=== PATIENT | male | born 1945 | race Caucasian/White ===

== ENCOUNTER → 2020-05-07 10:41 | Outpatient (CLI) | payer MEDICARE, BC, SELFPAY ==
--- NOTE | 2020-05-07 | DI.RAD.S_ITS ---
PROCEDURE: XR SHOULDER LT MIN 2V INDICATIONS: Acute Lt Shoulder Pain/Cough/Weightloss/Tabacco Dependence TECHNIQUE: 3 views of the shoulder were acquired. COMPARISON: None. FINDINGS: Bones: No fractures or dislocations. No suspicious bony lesions. Visualized ribs appear intact. Severe AC joint degeneration. Glenohumeral spurring and sclerosis also noted. Soft tissues: No suspicious soft tissue calcifications. IMPRESSION: Degenerative joint disease as above If the patient's pain or other symptoms persist, consider further evaluation with MRI Dictated by: Yannick Putnam M.D. on 05/07/2020 at 15:47 Approved by: Yannick Putnam M.D. on 05/07/2020 at 15:48
--- NOTE | 2020-05-07 | DI.RAD.S_ITS ---
PROCEDURE: XR CHEST 2V INDICATIONS: Acute Lt Shoulder Pain/Cough/Weightloss/Tabacco Dependence TECHNIQUE: 2 views of the chest were acquired. COMPARISON: [facility], CR, XR SHOULDER LT MIN 2V, 05/07/2020, 10:43. FINDINGS: Surgical changes and devices: None. Lungs and pleura: Lungs are clear. No pleural effusions or pneumothorax. Mediastinum: Mediastinal contours are normal. Heart size is normal. Bones and chest wall: No suspicious bony abnormalities. Soft tissues appear unremarkable. IMPRESSION: No acute disease Dictated by: Yannick Putnam M.D. on 05/07/2020 at 12:35 Approved by: Yannick Putnam M.D. on 05/07/2020 at 12:37
[2020-05-07 11:19] LABS: Bacteria Urine None Seen; RBC Urine None Seen (0-5/HPF); WBC Urine None Seen (0-5/HPF)
[2020-05-07 11:49] LABS: Add Manual Diff / Slide Review NO; Basophils Absolute Auto 0 /uL (0-100); Basophils Percent Auto 0.4 % (0-2); Eosinophils Absolute Auto 100 /uL (0-450); Hematocrit 43.4 % (41-53); Hemoglobin 15.4 g/dL (13.5-17.5); Lymphocytes Absolute Auto 1300 /uL (1100-4500); Lymphocytes Percent Auto 25.2 % (25-40); Mean Corpuscular HGB Conc 35.6 % (30-36); Mean Corpuscular Hemoglobin 31.3 PG (26-34); Monocytes Absolute Auto 300 /uL (0-900); Monocytes Percent Auto 6.9 % (3-14); Neutrophils Absolute Auto 3300 /uL (1500-7000); Neutrophils Percent Auto 65.5 % (50-75); Platelet Count 224 X10^3/uL (150-400); Red Blood Cell Count 4.93 X10^6/uL (4.5-5.9); Red Cell Distribution Width 13.3 % (11.6-14.8)
[2020-05-07 12:08] LABS: Erythrocyte Sedimentation Rate 4 MM/HR (0-15); HEMOLYSIS < 15 (0-50); Iron 120 ug/dL (49-181)
[2020-05-07 12:10] LABS: Alanine Aminotransferase 21 IU/L (<50); Albumin 4.7 g/dL (3.5-5.0); Albumin Globulin Ratio 1.6 (1.0-2.8); Alkaline Phosphatase 81 U/L (38-126); Aspartate Aminotransferase 28 IU/L (17-59); BUN Creatinine Ratio 22.7 (6-22); Bilirubin Total 0.6 mg/dL (0.2-1.3); Blood Urea Nitrogen 17 mg/dL (9-20); Calcium 9.6 mg/dL (8.4-10.2); Carbon Dioxide 30 mmol/L (22-32); Chloride 102 mmol/L (98-107); Estimated Glomerular Filt Rate > 60.0 mL/min (>60); Globulin 2.9 g/dL (1.7-4.1); Glucose 100 mg/dL (80-110); HEMOLYSIS < 15 (0-50); Potassium 4.8 mmol/L (3.4-5.1); Sodium 140 mmol/L (137-145); Total Protein 7.6 g/dL (6.3-8.2)
[2020-05-07 12:13] LABS: Hemoglobin A1C% w Est Avg Glu 5.2 % (4.0-6.0)
[2020-05-07 12:19] LABS: High Sensitivity CRP - Cardiac 0.9 mg/L (1.0-3.0); Percent Iron Saturation 43 % (20-50); Total Iron Binding Capacity 277 ug/dL (261-462); Transferrin 209 mg/dL (206-381)
[2020-05-07 12:40] LABS: Thyroid Stimulating Hormone 0.774 uIU/mL (0.47-4.68)
[2020-05-07 12:43] LABS: Ferritin 146 ng/mL (18-464)
[2020-05-07 13:14] LABS: Folate 6.5 ng/mL (2.76-20.0); Vitamin B12 285 pg/mL (239-931)
[2020-05-07 13:41] LABS: Appearance Urine UA CLEAR; Bilirubin Urine UA NEGATIVE (NEGATIVE); Color Urine UA YELLOW; Glucose Urine UA NEGATIVE (Negative); Ketones Urine UA NEGATIVE (NEGATIVE); Leukocyte Esterase Urine UA NEGATIVE (NEGATIVE); Nitrite Urine UA NEGATIVE (Negative); Occult Blood Urine UA NEGATIVE (Negative); Protein Urine UA NEGATIVE (Negative); Urobilinogen Urine UA 0.2 E.U./dL (0.2); pH Urine UA 5.5 (4.5-8.0)
[2020-05-07 13:47] LABS: Culture Indicated Urine Cult Not Indicated; Urine Comments Microscopic Normal
[2020-05-08 08:43] LABS: PSA Free % 32.5 % (.); PSA, Total 0.4 ng/mL (0.0-4.0)
[2020-05-09 11:13] LABS: H. Pylori Antigen Stool Negative (Negative)
== END ==
PROVIDERS: PCP Family Medicine; Referring Provider Family Medicine; Visit Provider Family Medicine
DX: M25.512 Pain in left shoulder (principal); M19.012 Primary osteoarthritis, left shoulder; R05 Cough; R63.4 Abnormal weight loss; F17.201 Nicotine dependence, unspecified, in remission; R10.13 Epigastric pain; R63.0 Anorexia; K29.00 Acute gastritis without bleeding; A04.8 Other specified bacterial intestinal infections
CPT/HCPCS: 36415; 71046; 73030; 80053; 81001; 82607; 82728; 82746; 83036; 83540; 83550; 84153; 84154; 84443; 85025; 85651; 86140; 87338

== ENCOUNTER 2021-04-24 13:56 | Emergency (ER) | payer MEDICARE, BC, SELFPAY ==
[2021-04-24 14:06] VITALS: BP 189/90; PULSE 89; RESP 14; TEMP 36.6; O2SAT 99
--- NOTE | 2021-04-24 14:08 | DI.RAD.S_ITS ---
PROCEDURE: XR SHOULDER LT MIN 2V INDICATIONS: fall one week ago, pain, hears 'bone crunching' TECHNIQUE: 3 views of the shoulder were acquired. COMPARISON: [facility], CR, XR SHOULDER LT MIN 2V, 05/07/2020, 10:43. FINDINGS: Bones: No fractures or dislocations. There is moderate acromioclavicular joint degeneration. No suspicious bony lesions. Visualized ribs appear intact. Soft tissues: No suspicious soft tissue calcifications. IMPRESSION: 1. No fracture or dislocation. 2. Moderate acromioclavicular joint degeneration. Dictated by: Malachi Lama M.D. on 04/24/2021 at 14:32 Approved by: Malachi Lama M.D. on 04/24/2021 at 14:33
--- NOTE | 2021-04-24 14:29 | ED.UPPEXIN ---
HPI - Extremity Injury (Upper) General Chief Complaint: Extremity Injury, Upper Stated Complaint: Fall Last Week, Left Shoulder Pain Time Seen by Provider: 04/24/21 14:03 Source: patient Mode of arrival: Ambulatory Limitations: no limitations History of Present Illness HPI narrative: This is a 76-year-old male who comes in with complaint of fall last week patient has continued to have some left shoulder discomfort since that time and noticed that he has a crunchy sensation in his left shoulder. patient states that he fell backwards from a seated chair position into a flower bed which was relatively soft. He denies striking his head. He denies any neck or back pain. He denies any numbness, tingling or weakness. Patient does note he has with motion of his shoulder and particularly flexion and abduction. Patient states he has been using a topical hemp cream or ointment which has been helpful. He has also been taking Aleve which is his only regular medication. He denies any other prior surgeries except for appendectomy. he denies any allergies to medications. He is a former smoker, occasional alcohol, no illicit. Patient lives on [facility] with his . He has seen Dr. Juarez in the past for orthopedic. Related Data Previous Rx's Medication Instructions Recorded sildenafil [Viagra] 100 mg PO PRN PRN #6 tab 12/15/16 prednisone 20 mg PO DAILY #5 tab 04/24/21 Allergies Allergy/AdvReac Type Severity Reaction Status Date / Time No Known Drug Allergies Allergy Verified 04/24/21 14:08 Review of Systems Review of Systems ROS Unobtainable: All systems reviewed & are unremarkable except as noted in HPI and below Patient History Surgical History History of tonsillectomy Status post appendectomy Social History Smoking Status: Former smoker Smoking Status: Former smoker alcohol intake frequency: other Substance Use Type: does not use Exam Narrative Exam Narrative: GENERAL: Alert and oriented x three, well-nourished male in mild distress. HEENT: Head normocephalic, atraumatic, EOMI, pupils reactive, face symmetric, moist mucous membranes NECK: Supple, full range of motion, no cervical vertebral tenderness. CARDIOVASCULAR: Regular rate and rhythm without murmurs, rubs or gallops. RESPIRATORY: Breath sounds equal bilaterally, no wheezes rales or rhonchi. ABDOMEN: Soft, nontender. Normoactive bowel sounds all 4 quadrants. No guarding or rebound, rigidity, no mass : No CVA tenderness EXTREMITIES: Patient has no warmth, erythema or skin changes the left shoulder he does have tenderness over the left biceps tendon with flexion, patient also has some crepitus in the left shoulder with range of motion. Patient does not have any other bony tenderness on examination of the clavicle, scapula, shoulder, or left extremity, he has 5/5 muscle strength with equal well control instructor bilaterally, +radial pulse bilaterally. No clubbing or edema. Neurovascularly intact. Patient does have some decreased range of motion with full flexion or extension, patient is quite uncomfortable with these movements. He is more comfortable with adduction. He has no issues with adduction. + Yergason's on left. NEUROLOGICAL: Cranial nerves II through XII grossly intact. Moving all extremities SKIN: Warm, dry, no petechiae, no rashes or lesions. Initial Vital Signs Initial Vital Signs: Vital Signs Temperature 97.9 F 04/24/21 14:06 Pulse Rate 89 04/24/21 14:06 Respiratory Rate 14 04/24/21 14:06 Blood Pressure 189/90 H 04/24/21 14:06 Pulse Oximetry 99 04/24/21 14:06 Course Orders Ordered: ED Orders 04/24/21 14:08 XR shoulder LT min 2V Stat Vital Signs Vital signs: Vital Signs - 8 hr 04/24/21 14:06 04/24/21 15:08 Temperature 97.9 F Pulse Rate 89 80 Respiratory Rate 14 16 Blood Pressure 189/90 H 118/34 L Pulse Oximetry 99 96 MDM - Extremity Injury (Upper) Imaging Data Extremity x-ray #1: Radiologist's Impression: [address] [id number] ReportSigned Patient: Erik Gee [facility]#: [id number]: 5Acct:[id number]/Sex: 76 / MDate of Service: 04/24/21Loc: EDAccession Number: [id number] Procedure: XR shoulder LT min 2V Ordering Provider: Cordelia Dominguez MD PROCEDURE: XR SHOULDER LT MIN 2V INDICATIONS: fall one week ago, pain, hears 'bone crunching' TECHNIQUE: 3 views of the shoulder were acquired. COMPARISON: [facility], CR, XR SHOULDER LT MIN 2V, 05/07/2020, 10:43. FINDINGS: Bones: No fractures or dislocations. There is moderate acromioclavicular joint degeneration. No suspicious bony lesions. Visualized ribs appear intact. Soft tissues: No suspicious soft tissue calcifications. IMPRESSION: 1. No fracture or dislocation. 2. Moderate acromioclavicular joint degeneration. Dictated by: Maalchi Lama M.D. on 04/24/2021 at 14:32 Approved by: Malachi Lama M.D. on 04/24/2021 at 14:33 MDM Narrative Medical decision making narrative: 76-year-old male who comes with left-sided shoulder pain after a fall backwards in a chair. Patient denies striking his head, he is not anticoagulated does not have any other symptoms. Patient has noted some crepitus and increased pain with movement. On exam patient does not appear to be weakened and decreased movement on exam seems to be more secondary to pain. He does have some tenderness to his biceps tendon but this is less likely to be present from fall. He does not have any fracture. He does have some degenerative changes from his AC joint. Discussed with patient he has been using topical hemp with good results as well as Aleve, ice and heat and was encouraged to continue these. Given a short course of oral prednisone to see if this helps with his discomfort and referral to Orthopedic surgery if he is not continuing to have improvement. Discharge Plan Departure Patient Disposition: Home Clinical Impression: Biceps tendinitis of left shoulder, Degenerative joint disease of acromioclavicular joint Instructions: DI for Tendinitis Activity Restrictions/Additional Instructions: Follow up with orthopedic surgery if you are not having any improvement in your symptoms. Call this week to establish an appointment. You may continue Alleve for pain as well as the topical ointment/cream you have been using. You may alternate ice and heat. You may try a short course of prednisone to see if this improves your symptoms. Make sure to eat prior to taking this medication. Please return for fever, rapidly worsening pain, redness, swelling, new numbness, tingling or weakness of your extremity, inability to preschool principal, or other new or concerning symptoms Prescriptions: New prednisone 20 mg tablet 20 mg PO DAILY Qty: 5 RF: 0 No Action sildenafil [Viagra] 100 MG tablet 100 mg PO PRN PRNQty: 6 RF: 9 Referrals: Gareth Hogan MD [Primary Care Provider] - Chapin You MD [Physician] - Yarelis Sarabia MD [Physician] -
[2021-04-24 15:08] VITALS: BP 118/34; PULSE 80; RESP 16; O2SAT 96
== END 2021-04-24 15:10 | disposition home or self-care (01) ==
PROVIDERS: Emergency Provider Emergency Medicine; PCP Family Medicine
DX: M75.22 Bicipital tendinitis, left shoulder (principal); M19.019 Primary osteoarthritis, unspecified shoulder; W19.XXXA Unspecified fall, initial encounter
CPT/HCPCS: 73030; 99283

== ENCOUNTER → 2021-10-12 08:16 | Outpatient (CLI) | payer MEDICARE, BC, SELFPAY ==
[2021-10-14 00:26] LABS: COVID19 - ORCAS (NP or Nasal) Negative (Negative)
== END ==
PROVIDERS: PCP Family Medicine; Visit Provider Family Medicine
DX: Z20.822 Contact with and (suspected) exposure to COVID-19 (principal)
CPT/HCPCS: C9803; U0003

== ENCOUNTER 2021-10-31 03:46 | Observation (INO) | payer MEDICARE, BC, SELFPAY ==
[2021-10-31] VITALS (27 sets, daily range): BP systolic 119–158; BP diastolic 61–103; PULSE 59–84; RESP 13–27; TEMP 36.3–36.9; O2SAT 94–100; BMI 23.1; BMI 22.9
--- NOTE | 2021-10-31 03:59 | ED_ITS ---
HPI - Dizziness <Sagrario Leyva DO - Last Filed: 11/02/21 07:07> General Chief Complaint: Dizziness Stated Complaint: Vertigo Time Seen by Provider: 10/31/21 03:58 History of Present Illness HPI Narrative: Patient is a 76-year-old male who presents 10 days after a uro lift with dizziness. He states he had a UroLift at [facility] about 10 days ago he said it was an outpatient procedure. Since then he is had intermittent dizziness. This evening he woke up with severe dizziness and bilateral weak legs. He was given Zofran and IV fluids by EMS and transported to the ED for further evaluation. He is overall feeling significantly better. He denies fever or headache. No painful or frequent urination. However he is still urinating some blood. He has no abdominal pain or flank pain. He denies any chest pain or shortness of breath. He has not passed out. Dizziness was quite intense tonight in he was extremely weak prompting further evaluation. Related Data Previous Rx's Medication Instructions Recorded aspirin 81 mg tablet,delayed 81 mg PO DAILY #30 tab 11/01/21 release atorvastatin 40 mg tablet 40 mg PO BEDTIME #30 tab 11/01/21 Allergies Allergy/AdvReac Type Severity Reaction Status Date / Time No Known Drug Allergies Allergy Verified 04/24/21 14:08 Review of Systems <Sagrario Leyva DO - Last Filed: 11/02/21 07:07> Review of Systems Narrative: GENERAL: Denies chills, fatigue, malaise, fever, sweats, travel HEENT: Denies sinus pain, ear pain, sore throat, difficulty swallowing, neck pain RESPIRATORY: Denies dyspnea, cough, wheezing, hemoptysis, sputum. CARDIOVASCULAR: Denies chest pain, palpitations, orthopnea, edema GASTROINTESTINAL: Denies nausea, vomiting, abdominal pain, diarrhea, con stipation, melena. : See HPI MUSCULOSKELETAL: Denies weakness, joint pain, or bony pain SKIN: No rash, no erythema, no pruritus NEUROLOGIC: See HPI PSYCHIATRIC: No concerning psychosocial issues. 12 point review of systems is negative except for those stated above and HPI Patient History <Sagrario Leyva DO - Last Filed: 11/02/21 07:07> Surgical History History of tonsillectomy Status post appendectomy Social History household members: none Smoking Status: Former smoker Smoking Status: Former smoker alcohol intake frequency: other Substance Use Type: does not use Exam <Sagrario Leyva DO - Last Filed: 11/02/21 07:07> Initial Vital Signs Initial Vital Signs: Vital Signs Temperature 97.3 F L 10/31/21 03:50 Pulse Rate 75 10/31/21 03:50 Respiratory Rate 17 10/31/21 03:50 Blood Pressure 158/82 H 10/31/21 03:50 Pulse Oximetry 97 10/31/21 03:50 GENERAL: Alert pleasant 76-year-old maleand in no acute distress. HEENT: Head atraumatic,EOMI, no nystagmus, pupils reactive, face symmetric, moist mucous membranes CARDIOVASCULAR: Regular rate and rhythm without murmurs, rubs or gallops. RESPIRATORY: Breath sounds equal bilaterally, no wheezes rales or rhonchi. ABDOMEN: Soft, nontender. Normoactive bowel sounds all 4 quadrants. No guar ding or rebound. EXTREMITIES: Normal range of motion, no clubbing or edema. Neurovascularly intact NEUROLOGICAL: Alert and oriented x4.Normal gait and speech. Cranial nerves II through XII grossly intact. Good [id number], good [id number], strength equal bilaterally, no dysarthria or aphasia, sensation in tact to soft touch bilaterally, no visual changes, no facial droop SKIN: Warm, dry, no laceration, no petechiae, no rashes or lesions. <Alexander To DO - Last Filed: 10/31/21 11:10> Initial Vital Signs Initial Vital Signs: Vital Signs Temperature 97.3 F L 10/31/21 03:50 Pulse Rate 75 10/31/21 03:50 Respiratory Rate 17 10/31/21 03:50 Blood Pressure 158/82 H 10/31/21 03:50 Pulse Oximetry 97 10/31/21 03:50 Course <Sagrario Leyva DO - Last Filed: 11/02/21 07:07> Orders Ordered: Discontinued Medications Acetaminophen (Acetaminophen 325 Mg Tablet) 650 mg PO Q6HR PRN PRN Reason: Fever/Mild Pain (1-3) Aspirin (Aspirin Ec 81 Mg Tablet) 81 mg PO DAILY [facility] Last Admin: 11/01/21 08:28 Dose: 81 mg Documented by: CELE Aspirin (Aspirin 325 Mg Tablet) 325 mg PO NOW ONE Stop: 10/31/21 12:18 Last Admin: 10/31/21 13:55 Dose: 325 mg Documented by: CELE Atorvastatin Calcium (Atorvastatin 20 Mg Tablet) 40 mg PO BEDTIME [facility] Last Admin: 10/31/21 20:08 Dose: 40 mg Documented by: DENILSON Bisacodyl (Bisacodyl 10 Mg Supp) 10 mg IA DAILY PRN PRN Reason: Constipation Enoxaparin Sodium (Enoxaparin 40 Mg/0.4 Ml Syringe) 40 mg SUBCUT DAILY [facility] Last Admin: 11/01/21 08:28 Dose: 40 mg Documented by: CELE Sodium Chloride (Normal Saline 0.9%) 1,000 mls @ 1,000 mls/hr IV BOLUS ONE Stop: 10/31/21 05:56 Last Infusion: 10/31/21 07:15 Dose: 0 mls/hr Documented by: Admin: 10/31/21 05:00 Dose: 1,000 mls/hr Documented by: RELL Magnesium Hydroxide (Magnesium Hydroxide 30 Ml Udc) 30 ml PO DAILY PRN PRN Reason: Constipation Meclizine HCl (Meclizine Hcl 12.5 Mg Tablet) 25 mg PO NOW ONE Stop: 10/31/21 08:11 Last Admin: 10/31/21 08:16 Dose: 25 mg Documented by: EMILE Ondansetron HCl (Ondansetron 4 Mg/2 Ml Inj) 4 mg IV NOW ONE Stop: 10/31/21 08:11 Last Admin: 10/31/21 08:16 Dose: 4 mg Documented by: EMILE Ondansetron HCl (Ondansetron 4 Mg/2 Ml Inj) 4 mg IV Q8HR PRN PRN Reason: Nausea And Vomiting Sodium Chloride (Sodium Chloride 0.9% Flush) 10 ml IV PRN PRN PRN Reason: Flush Sodium Chloride (Sodium Chloride 0.9% Flush) 10 ml IV BID [facility] Last Admin: 11/01/21 14:32 Dose: Not Given Documented by: Admin: 10/31/21 20:57 Dose: 10 ml Documented by: DENILSON Vital Signs Vital signs: Vital Signs - 8 hr 10/31/21 03:50 10/31/21 04:03 10/31/21 04:12 Temperature 97.3 F L Pulse Rate 75 59 L 75 Pulse Rate [Orthostatic Lying] Pulse Rate [Orthostatic Sitting] Pulse Rate [Orthostatic Standing] Respiratory Rate 17 21 19 Blood Pressure 158/82 H 150/75 H Blood Pressure [Orthostatic Lying] Blood Pressure [Orthostatic Sitting] Blood Pressure [Orthostatic Standing] Pulse Oximetry 97 96 99 10/31/21 04:30 10/31/21 05:00 10/31/21 05:22 Temperature Pulse Rate 75 72 73 Pulse Rate [Orthostatic Lying] Pulse Rate [Orthostatic Sitting] Pulse Rate [Orthostatic Standing] Respiratory Rate 15 21 15 Blood Pressure 156/73 H 133/68 Blood Pressure [Orthostatic Lying] Blood Pressure [Orthostatic Sitting] Blood Pressure [Orthostatic Standing] Pulse Oximetry 97 99 98 10/31/21 05:30 10/31/21 06:00 10/31/21 06:30 Temperature Pulse Rate 79 79 78 Pulse Rate [Orthostatic Lying] Pulse Rate [Orthostatic Sitting] Pulse Rate [Orthostatic Standing] Respiratory Rate 14 16 19 Blood Pressure 142/66 H 149/65 H 138/66 Blood Pressure [Orthostatic Lying] Blood Pressure [Orthostatic Sitting] Blood Pressure [Orthostatic Standing] Pulse Oximetry 98 98 98 10/31/21 07:00 10/31/21 07:30 10/31/21 08:00 Temperature Pulse Rate 81 72 81 Pulse Rate [Orthostatic Lying] Pulse Rate [Orthostatic Sitting] Pulse Rate [Orthostatic Standing] Respiratory Rate 13 15 27 H Blood Pressure 142/67 H 130/62 137/77 Blood Pressure [Orthostatic Lying] Blood Pressure [Orthostatic Sitting] Blood Pressure [Orthostatic Standing] Pulse Oximetry 97 99 100 10/31/21 08:03 10/31/21 08:05 10/31/21 08:09 Temperature Pulse Rate 79 84 Pulse Rate [Orthostatic Lying] 79 Pulse Rate [Orthostatic Sitting] 82 Pulse Rate [Orthostatic Standing] 80 Respiratory Rate 24 17 Blood Pressure 119/71 148/72 H Blood Pressure [Orthostatic Lying] 137/77 Blood Pressure [Orthostatic Sitting] 119/71 Blood Pressure [Orthostatic Standing] 148/72 H Pulse Oximetry 99 98 10/31/21 08:30 Temperature Pulse Rate 67 Pulse Rate [Orthostatic Lying] Pulse Rate [Orthostatic Sitting] Pulse Rate [Orthostatic Standing] Respiratory Rate Blood Pressure 126/61 Blood Pressure [Orthostatic Lying] Blood Pressure [Orthostatic Sitting] Blood Pressure [Orthostatic Standing] Pulse Oximetry 99 <Alexander To DO - Last Filed: 10/31/21 11:10> Course Course Narrative: 0700 - patient received in signout from Dr. Leyva. I have performed an independent history and physical exam. His story is a bit complex and though elements would suggest the possibility of a peripheral vertigo there is no reproducible dizziness on my exam, no nystagmus. He is unable to ambulate because he feels unsteady. Additionally, he reports brief episodes of trouble with word finding and some heaviness of his left leg last night, which has since resolved. He will require hospitalization for further workup including MRI and echocardiogram among others. Orders Ordered: Discontinued Medications Acetaminophen (Acetaminophen 325 Mg Tablet) 650 mg PO Q6HR PRN PRN Reason: Fever/Mild Pain (1-3) Aspirin (Aspirin Ec 81 Mg Tablet) 81 mg PO DAILY [facility] Last Admin: 11/01/21 08:28 Dose: 81 mg Documented by: CELE Aspirin (Aspirin 325 Mg Tablet) 325 mg PO NOW ONE Stop: 10/31/21 12:18 Last Admin: 10/31/21 13:55 Dose: 325 mg Documented by: CELE Atorvastatin Calcium (Atorvastatin 20 Mg Tablet) 40 mg PO BEDTIME [facility] Last Admin: 10/31/21 20:08 Dose: 40 mg Documented by: DENILSON Bisacodyl (Bisacodyl 10 Mg Supp) 10 mg IA DAILY PRN PRN Reason: Constipation Enoxaparin Sodium (Enoxaparin 40 Mg/0.4 Ml Syringe) 40 mg SUBCUT DAILY [facility] Last Admin: 11/01/21 08:28 Dose: 40 mg Documented by: CELE Sodium Chloride (Normal Saline 0.9%) 1,000 mls @ 1,000 mls/hr IV BOLUS ONE Stop: 10/31/21 05:56 Last Infusion: 10/31/21 07:15 Dose: 0 mls/hr Documented by: Admin: 10/31/21 05:00 Dose: 1,000 mls/hr Documented by: KBROWNE Magnesium Hydroxide (Magnesium Hydroxide 30 Ml Udc) 30 ml PO DAILY PRN PRN Reason: Constipation Meclizine HCl (Meclizine Hcl 12.5 Mg Tablet) 25 mg PO NOW ONE Stop: 10/31/21 08:11 Last Admin: 10/31/21 08:16 Dose: 25 mg Documented by: EMILE Ondansetron HCl (Ondansetron 4 Mg/2 Ml Inj) 4 mg IV NOW ONE Stop: 10/31/21 08:11 Last Admin: 10/31/21 08:16 Dose: 4 mg Documented by: EMILE Ondansetron HCl (Ondansetron 4 Mg/2 Ml Inj) 4 mg IV Q8HR PRN PRN Reason: Nausea And Vomiting Sodium Chloride (Sodium Chloride 0.9% Flush) 10 ml IV PRN PRN PRN Reason: Flush Sodium Chloride (Sodium Chloride 0.9% Flush) 10 ml IV BID [facility] Last Admin: 11/01/21 14:32 Dose: Not Given Documented by: Admin: 10/31/21 20:57 Dose: 10 ml Documented by: DENILSON Vital Signs Vital signs: Vital Signs - 8 hr 10/31/21 03:50 10/31/21 04:03 10/31/21 04:12 Temperature 97.3 F L Pulse Rate 75 59 L 75 Pulse Rate [Orthostatic Lying] Pulse Rate [Orthostatic Sitting] Pulse Rate [Orthostatic Standing] Respiratory Rate 17 21 19 Blood Pressure 158/82 H 150/75 H Blood Pressure [Orthostatic Lying] Blood Pressure [Orthostatic Sitting] Blood Pressure [Orthostatic Standing] Pulse Oximetry 97 96 99 10/31/21 04:30 10/31/21 05:00 10/31/21 05:22 Temperature Pulse Rate 75 72 73 Pulse Rate [Orthostatic Lying] Pulse Rate [Orthostatic Sitting] Pulse Rate [Orthostatic Standing] Respiratory Rate 15 21 15 Blood Pressure 156/73 H 133/68 Blood Pressure [Orthostatic Lying] Blood Pressure [Orthostatic Sitting] Blood Pressure [Orthostatic Standing] Pulse Oximetry 97 99 98 10/31/21 05:30 10/31/21 06:00 10/31/21 06:30 Temperature Pulse Rate 79 79 78 Pulse Rate [Orthostatic Lying] Pulse Rate [Orthostatic Sitting] Pulse Rate [Orthostatic Standing] Respiratory Rate 14 16 19 Blood Pressure 142/66 H 149/65 H 138/66 Blood Pressure [Orthostatic Lying] Blood Pressure [Orthostatic Sitting] Blood Pressure [Orthostatic Standing] Pulse Oximetry 98 98 98 10/31/21 07:00 10/31/21 07:30 10/31/21 08:00 Temperature Pulse Rate 81 72 81 Pulse Rate [Orthostatic Lying] Pulse Rate [Orthostatic Sitting] Pulse Rate [Orthostatic Standing] Respiratory Rate 13 15 27 H Blood Pressure 142/67 H 130/62 137/77 Blood Pressure [Orthostatic Lying] Blood Pressure [Orthostatic Sitting] Blood Pressure [Orthostatic Standing] Pulse Oximetry 97 99 100 10/31/21 08:03 10/31/21 08:05 10/31/21 08:09 Temperature Pulse Rate 79 84 Pulse Rate [Orthostatic Lying] 79 Pulse Rate [Orthostatic Sitting] 82 Pulse Rate [Orthostatic Standing] 80 Respiratory Rate 24 17 Blood Pressure 119/71 148/72 H Blood Pressure [Orthostatic Lying] 137/77 Blood Pressure [Orthostatic Sitting] 119/71 Blood Pressure [Orthostatic Standing] 148/72 H Pulse Oximetry 99 98 10/31/21 08:30 Temperature Pulse Rate 67 Pulse Rate [Orthostatic Lying] Pulse Rate [Orthostatic Sitting] Pulse Rate [Orthostatic Standing] Respiratory Rate Blood Pressure 126/61 Blood Pressure [Orthostatic Lying] Blood Pressure [Orthostatic Sitting] Blood Pressure [Orthostatic Standing] Pulse Oximetry 99 MDM - Dizziness <Sagrario Leyva, DO - Last Filed: 11/02/21 07:07> Lab Data Result diagrams: 10/31/21 04:11 10/31/21 07:21 Labs: Lab Results 10/31/21 10/31/21 10/31/21 Range/Units 04:11 04:11 04:11 WBC 10.3 (4.5-11.0) X10^3/uL RBC 4.91 (4.5-5.9) X10^6/uL Hgb 15.2 (13.5-17.5) g/dL Hct 42.8 (41-53) % MCV 87.1 (80-100) fL MCH 30.9 (26-34) PG MCHC 35.5 (30-36) % RDW 12.9 (11.6-14.8) % Plt Count 206 (150-400) X10^3/uL Neut % (Auto) 87.8 H (50-75) % Lymph % (Auto) 8.3 L (25-40) % [place] % (Auto) 3.4 (3-14) % Eos % (Auto) 0.3 L (2-4) % Baso % (Auto) 0.2 (0-2) % Neut # (Auto) 9000 H (4118-5800) /uL Lymph # (Auto) 800 L (9916-4452) /uL [place] # (Auto) 400 (0-900) /uL Eos # (Auto) 0 (0-450) /uL Baso # (Auto) 0 (0-100) /uL Sodium 139 (137-145) mmol/L Potassium 4.3 (3.4-5.1) mmol/L Chloride 103 (98-107) mmol/L Carbon Dioxide 30 (22-32) mmol/L BUN 18 (9-20) mg/dL Creatinine 0.80 (0.66-1.25) mg/dL Estimated GFR > 60.0 (>60) mL/min BUN/Creatinine Ratio 22.5 H (6-22) Glucose 133 H (80-110) mg/dL Hemoglobin A1c (4.0-6.0) % Calcium 9.5 (8.4-10.2) mg/dL Total Bilirubin 0.5 (0.2-1.3) mg/dL AST 29 (17-59) IU/L ALT 21 (<50) IU/L Alkaline Phosphatase 89 (38-126) U/L Total Creatine Kinase 61 (55-170) U/L CK-MB (CK-2) TNP CK-MB (CK-2) Rel Index TNP Troponin I < 0.012 (0.01-0.034) ng/mL Total Protein 7.7 (6.3-8.2) g/dL Albumin 4.5 (3.5-5.0) g/dL Globulin 3.2 (1.7-4.1) g/dL Albumin/Globulin Ratio 1.4 (1.0-2.8) Triglycerides (35-150) mg/dL Cholesterol (140-199) mg/dL LDL Cholesterol, Calc (<100) mg/dL HDL Cholesterol (40-60) mg/dL Urine Color Urine Appearance Urine pH (4.5-8.0) Ur Specific [place] (1.000-1.035) Urine Protein (Negative) Urine Glucose (UA) (Negative) g/dL Urine Ketones (NEGATIVE) Urine Occult Blood (Negative) Urine Nitrate (Negative) Urine Bilirubin (NEGATIVE) Urine Urobilinogen (0.2) E.U./dL Ur Leukocyte Esterase (NEGATIVE) Urine RBC (0-5/HPF) Urine WBC (0-5/HPF) Urine Bacteria (None) Ur Culture Indicated? Ur Random Sodium (30-90) mmol/L Urine Creatinine mg/dL SARS-CoV-2 (PCR) (Negative) 10/31/21 10/31/21 10/31/21 Range/Units 04:11 04:58 04:58 WBC (4.5-11.0) X10^3/uL RBC (4.5-5.9) X10^6/uL Hgb (13.5-17.5) g/dL Hct (41-53) % MCV (80-100) fL MCH (26-34) PG MCHC (30-36) % RDW (11.6-14.8) % Plt Count (150-400) X10^3/uL Neut % (Auto) (50-75) % Lymph % (Auto) (25-40) % [place] % (Auto) (3-14) % Eos % (Auto) (2-4) % Baso % (Auto) (0-2) % Neut # (Auto) (4354-3307) /uL Lymph # (Auto) (2674-2118) /uL [place] # (Auto) (0-900) /uL Eos # (Auto) (0-450) /uL Baso # (Auto) (0-100) /uL Sodium (137-145) mmol/L Potassium (3.4-5.1) mmol/L Chloride (98-107) mmol/L Carbon Dioxide (22-32) mmol/L BUN (9-20) mg/dL Creatinine (0.66-1.25) mg/dL Estimated GFR (>60) mL/min BUN/Creatinine Ratio (6-22) Glucose (80-110) mg/dL Hemoglobin A1c 5.2 (4.0-6.0) % Calcium (8.4-10.2) mg/dL Total Bilirubin (0.2-1.3) mg/dL AST (17-59) IU/L ALT (<50) IU/L Alkaline Phosphatase (38-126) U/L Total Creatine Kinase (55-170) U/L CK-MB (CK-2) CK-MB (CK-2) Rel Index Troponin I (0.01-0.034) ng/mL Total Protein (6.3-8.2) g/dL Albumin (3.5-5.0) g/dL Globulin (1.7-4.1) g/dL Albumin/Globulin Ratio (1.0-2.8) Triglycerides (35-150) mg/dL Cholesterol (140-199) mg/dL LDL Cholesterol, Calc (<100) mg/dL HDL Cholesterol (40-60) mg/dL Urine Color Yellow Urine Appearance Clear Urine pH 8.5 H (4.5-8.0) Ur Specific [place] 1.015 (1.000-1.035) Urine Protein Trace H (Negative) Urine Glucose (UA) Negative (Negative) g/dL Urine Ketones Negative (NEGATIVE) Urine Occult Blood 3+ H (Negative) Urine Nitrate Negative (Negative) Urine Bilirubin Negative (NEGATIVE) Urine Urobilinogen 0.2 (0.2) E.U./dL Ur Leukocyte Esterase Negative (NEGATIVE) Urine RBC 10-30/hpf H (0-5/HPF) Urine WBC None seen (0-5/HPF) Urine Bacteria Few (2-10) H (None) Ur Culture Indicated? Cult not indicated Ur Random Sodium 134 H (30-90) mmol/L Urine Creatinine 75.8 mg/dL SARS-CoV-2 (PCR) (Negative) 10/31/21 10/31/21 10/31/21 Range/Units 06:30 07:21 07:21 WBC (4.5-11.0) X10^3/uL RBC (4.5-5.9) X10^6/uL Hgb (13.5-17.5) g/dL Hct (41-53) % MCV (80-100) fL MCH (26-34) PG MCHC (30-36) % RDW (11.6-14.8) % Plt Count (150-400) X10^3/uL Neut % (Auto) (50-75) % Lymph % (Auto) (25-40) % [place] % (Auto) (3-14) % Eos % (Auto) (2-4) % Baso % (Auto) (0-2) % Neut # (Auto) (5362-8993) /uL Lymph # (Auto) (5737-0361) /uL [place] # (Auto) (0-900) /uL Eos # (Auto) (0-450) /uL Baso # (Auto) (0-100) /uL Sodium 139 141 (137-145) mmol/L Potassium 4.9 4.6 (3.4-5.1) mmol/L Chloride 105 106 (98-107) mmol/L Carbon Dioxide 32 31 (22-32) mmol/L BUN 15 15 (9-20) mg/dL Creatinine 0.69 0.72 (0.66-1.25) mg/dL Estimated GFR > 60.0 > 60.0 (>60) mL/min BUN/Creatinine Ratio 21.7 20.8 (6-22) Glucose 122 H 120 H (80-110) mg/dL Hemoglobin A1c (4.0-6.0) % Calcium 8.9 8.8 (8.4-10.2) mg/dL Total Bilirubin (0.2-1.3) mg/dL AST (17-59) IU/L ALT (<50) IU/L Alkaline Phosphatase (38-126) U/L Total Creatine Kinase (55-170) U/L CK-MB (CK-2) CK-MB (CK-2) Rel Index Troponin I (0.01-0.034) ng/mL Total Protein (6.3-8.2) g/dL Albumin (3.5-5.0) g/dL Globulin (1.7-4.1) g/dL Albumin/Globulin Ratio (1.0-2.8) Triglycerides 46 (35-150) mg/dL Cholesterol 182 (140-199) mg/dL LDL Cholesterol, Calc 126 H (<100) mg/dL HDL Cholesterol 47 (40-60) mg/dL Urine Color Urine Appearance Urine pH (4.5-8.0) Ur Specific [place] (1.000-1.035) Urine Protein (Negative) Urine Glucose (UA) (Negative) g/dL Urine Ketones (NEGATIVE) Urine Occult Blood (Negative) Urine Nitrate (Negative) Urine Bilirubin (NEGATIVE) Urine Urobilinogen (0.2) E.U./dL Ur Leukocyte Esterase (NEGATIVE) Urine RBC (0-5/HPF) Urine WBC (0-5/HPF) Urine Bacteria (None) Ur Culture Indicated? Ur Random Sodium (30-90) mmol/L Urine Creatinine mg/dL SARS-CoV-2 (PCR) (Negative) 10/31/21 Range/Units 09:03 WBC (4.5-11.0) X10^3/uL RBC (4.5-5.9) X10^6/uL Hgb (13.5-17.5) g/dL Hct (41-53) % MCV (80-100) fL MCH (26-34) PG MCHC (30-36) % RDW (11.6-14.8) % Plt Count (150-400) X10^3/uL Neut % (Auto) (50-75) % Lymph % (Auto) (25-40) % [place] % (Auto) (3-14) % Eos % (Auto) (2-4) % Baso % (Auto) (0-2) % Neut # (Auto) (6573-0052) /uL Lymph # (Auto) (5355-0979) /uL [place] # (Auto) (0-900) /uL Eos # (Auto) (0-450) /uL Baso # (Auto) (0-100) /uL Sodium (137-145) mmol/L Potassium (3.4-5.1) mmol/L Chloride (98-107) mmol/L Carbon Dioxide (22-32) mmol/L BUN (9-20) mg/dL Creatinine (0.66-1.25) mg/dL Estimated GFR (>60) mL/min BUN/Creatinine Ratio (6-22) Glucose (80-110) mg/dL Hemoglobin A1c (4.0-6.0) % Calcium (8.4-10.2) mg/dL Total Bilirubin (0.2-1.3) mg/dL AST (17-59) IU/L ALT (<50) IU/L Alkaline Phosphatase (38-126) U/L Total Creatine Kinase (55-170) U/L CK-MB (CK-2) CK-MB (CK-2) Rel Index Troponin I (0.01-0.034) ng/mL Total Protein (6.3-8.2) g/dL Albumin (3.5-5.0) g/dL Globulin (1.7-4.1) g/dL Albumin/Globulin Ratio (1.0-2.8) Triglycerides (35-150) mg/dL Cholesterol (140-199) mg/dL LDL Cholesterol, Calc (<100) mg/dL HDL Cholesterol (40-60) mg/dL Urine Color Urine Appearance Urine pH (4.5-8.0) Ur Specific [place] (1.000-1.035) Urine Protein (Negative) Urine Glucose (UA) (Negative) g/dL Urine Ketones (NEGATIVE) Urine Occult Blood (Negative) Urine Nitrate (Negative) Urine Bilirubin (NEGATIVE) Urine Urobilinogen (0.2) E.U./dL Ur Leukocyte Esterase (NEGATIVE) Urine RBC (0-5/HPF) Urine WBC (0-5/HPF) Urine Bacteria (None) Ur Culture Indicated? Ur Random Sodium (30-90) mmol/L Urine Creatinine mg/dL SARS-CoV-2 (PCR) Negative (Negative) Imaging Data CT scan - head: Radiologist's Impression: Preliminary report no acute intracranial findings ECG Data Interpretation: Sinus rhythm with artifact rate 73 IA interval [address] changes MDM Narrative Medical decision making narrative: Patient's symptoms have overall completely improved with fluids and Zofran he is feeling better. Creatinine is elevated at 3.13 previously blood work was done in 2019 at which point he had a normal GFR. Patient had a bladder scan for possible urinary retention after prostate procedure bladder scan showed about 128 a and he actually urinated shortly after their of about the same. He has no significant abdominal pain, to suggest a urinary retention. He also has no leukocytosis or fever. FeNa=4% [id number] discussed case with a list recommend rechecking blood work but prefer if patient could be transferred elsewhere. Patient's repeat blood work is normal. Concern for lab mix up. Discussed lab waiting for repeat. Patient signed out to Dr. To for further management. <Alexander To, DO - Last Filed: 10/31/21 11:10> Lab Data Labs: Lab Results 10/31/21 10/31/21 10/31/21 Range/Units 04:11 04:11 04:11 WBC 10.3 (4.5-11.0) X10^3/uL RBC 4.91 (4.5-5.9) X10^6/uL Hgb 15.2 (13.5-17.5) g/dL Hct 42.8 (41-53) % MCV 87.1 (80-100) fL MCH 30.9 (26-34) PG MCHC 35.5 (30-36) % RDW 12.9 (11.6-14.8) % Plt Count 206 (150-400) X10^3/uL Neut % (Auto) 87.8 H (50-75) % Lymph % (Auto) 8.3 L (25-40) % [place] % (Auto) 3.4 (3-14) % Eos % (Auto) 0.3 L (2-4) % Baso % (Auto) 0.2 (0-2) % Neut # (Auto) 9000 H (5799-8354) /uL Lymph # (Auto) 800 L (0079-7207) /uL [place] # (Auto) 400 (0-900) /uL Eos # (Auto) 0 (0-450) /uL Baso # (Auto) 0 (0-100) /uL Sodium 139 (137-145) mmol/L Potassium 4.3 (3.4-5.1) mmol/L Chloride 103 (98-107) mmol/L Carbon Dioxide 30 (22-32) mmol/L BUN 18 (9-20) mg/dL Creatinine 0.80 (0.66-1.25) mg/dL Estimated GFR > 60.0 (>60) mL/min BUN/Creatinine Ratio 22.5 H (6-22) Glucose 133 H (80-110) mg/dL Hemoglobin A1c (4.0-6.0) % Calcium 9.5 (8.4-10.2) mg/dL Total Bilirubin 0.5 (0.2-1.3) mg/dL AST 29 (17-59) IU/L ALT 21 (<50) IU/L Alkaline Phosphatase 89 (38-126) U/L Total Creatine Kinase 61 (55-170) U/L CK-MB (CK-2) TNP CK-MB (CK-2) Rel Index TNP Troponin I < 0.012 (0.01-0.034) ng/mL Total Protein 7.7 (6.3-8.2) g/dL Albumin 4.5 (3.5-5.0) g/dL Globulin 3.2 (1.7-4.1) g/dL Albumin/Globulin Ratio 1.4 (1.0-2.8) Triglycerides (35-150) mg/dL Cholesterol (140-199) mg/dL LDL Cholesterol, Calc (<100) mg/dL HDL Cholesterol (40-60) mg/dL Urine Color Urine Appearance Urine pH (4.5-8.0) Ur Specific [place] (1.000-1.035) Urine Protein (Negative) Urine Glucose (UA) (Negative) g/dL Urine Ketones (NEGATIVE) Urine Occult Blood (Negative) Urine Nitrate (Negative) Urine Bilirubin (NEGATIVE) Urine Urobilinogen (0.2) E.U./dL Ur Leukocyte Esterase (NEGATIVE) Urine RBC (0-5/HPF) Urine WBC (0-5/HPF) Urine Bacteria (None) Ur Culture Indicated? Ur Random Sodium (30-90) mmol/L Urine Creatinine mg/dL SARS-CoV-2 (PCR) (Negative) 10/31/21 10/31/21 10/31/21 Range/Units 04:11 04:58 04:58 WBC (4.5-11.0) X10^3/uL RBC (4.5-5.9) X10^6/uL Hgb (13.5-17.5) g/dL Hct (41-53) % MCV (80-100) fL MCH (26-34) PG MCHC (30-36) % RDW (11.6-14.8) % Plt Count (150-400) X10^3/uL Neut % (Auto) (50-75) % Lymph % (Auto) (25-40) % [place] % (Auto) (3-14) % Eos % (Auto) (2-4) % Baso % (Auto) (0-2) % Neut # (Auto) (3131-2922) /uL Lymph # (Auto) (3511-3943) /uL [place] # (Auto) (0-900) /uL Eos # (Auto) (0-450) /uL Baso # (Auto) (0-100) /uL Sodium (137-145) mmol/L Potassium (3.4-5.1) mmol/L Chloride (98-107) mmol/L Carbon Dioxide (22-32) mmol/L BUN (9-20) mg/dL Creatinine (0.66-1.25) mg/dL Estimated GFR (>60) mL/min BUN/Creatinine Ratio (6-22) Glucose (80-110) mg/dL Hemoglobin A1c 5.2 (4.0-6.0) % Calcium (8.4-10.2) mg/dL Total Bilirubin (0.2-1.3) mg/dL AST (17-59) IU/L ALT (<50) IU/L Alkaline Phosphatase (38-126) U/L Total Creatine Kinase (55-170) U/L CK-MB (CK-2) CK-MB (CK-2) Rel Index Troponin I (0.01-0.034) ng/mL Total Protein (6.3-8.2) g/dL Albumin (3.5-5.0) g/dL Globulin (1.7-4.1) g/dL Albumin/Globulin Ratio (1.0-2.8) Triglycerides (35-150) mg/dL Cholesterol (140-199) mg/dL LDL Cholesterol, Calc (<100) mg/dL HDL Cholesterol (40-60) mg/dL Urine Color Yellow Urine Appearance Clear Urine pH 8.5 H (4.5-8.0) Ur Specific [place] 1.015 (1.000-1.035) Urine Protein Trace H (Negative) Urine Glucose (UA) Negative (Negative) g/dL Urine Ketones Negative (NEGATIVE) Urine Occult Blood 3+ H (Negative) Urine Nitrate Negative (Negative) Urine Bilirubin Negative (NEGATIVE) Urine Urobilinogen 0.2 (0.2) E.U./dL Ur Leukocyte Esterase Negative (NEGATIVE) Urine RBC 10-30/hpf H (0-5/HPF) Urine WBC None seen (0-5/HPF) Urine Bacteria Few (2-10) H (None) Ur Culture Indicated? Cult not indicated Ur Random Sodium 134 H (30-90) mmol/L Urine Creatinine 75.8 mg/dL SARS-CoV-2 (PCR) (Negative) 10/31/21 10/31/21 10/31/21 Range/Units 06:30 07:21 07:21 WBC (4.5-11.0) X10^3/uL RBC (4.5-5.9) X10^6/uL Hgb (13.5-17.5) g/dL Hct (41-53) % MCV (80-100) fL MCH (26-34) PG MCHC (30-36) % RDW (11.6-14.8) % Plt Count (150-400) X10^3/uL Neut % (Auto) (50-75) % Lymph % (Auto) (25-40) % [place] % (Auto) (3-14) % Eos % (Auto) (2-4) % Baso % (Auto) (0-2) % Neut # (Auto) (0770-2942) /uL Lymph # (Auto) (2582-2648) /uL [place] # (Auto) (0-900) /uL Eos # (Auto) (0-450) /uL Baso # (Auto) (0-100) /uL Sodium 139 141 (137-145) mmol/L Potassium 4.9 4.6 (3.4-5.1) mmol/L Chloride 105 106 (98-107) mmol/L Carbon Dioxide 32 31 (22-32) mmol/L BUN 15 15 (9-20) mg/dL Creatinine 0.69 0.72 (0.66-1.25) mg/dL Estimated GFR > 60.0 > 60.0 (>60) mL/min BUN/Creatinine Ratio 21.7 20.8 (6-22) Glucose 122 H 120 H (80-110) mg/dL Hemoglobin A1c (4.0-6.0) % Calcium 8.9 8.8 (8.4-10.2) mg/dL Total Bilirubin (0.2-1.3) mg/dL AST (17-59) IU/L ALT (<50) IU/L Alkaline Phosphatase (38-126) U/L Total Creatine Kinase (55-170) U/L CK-MB (CK-2) CK-MB (CK-2) Rel Index Troponin I (0.01-0.034) ng/mL Total Protein (6.3-8.2) g/dL Albumin (3.5-5.0) g/dL Globulin (1.7-4.1) g/dL Albumin/Globulin Ratio (1.0-2.8) Triglycerides 46 (35-150) mg/dL Cholesterol 182 (140-199) mg/dL LDL Cholesterol, Calc 126 H (<100) mg/dL HDL Cholesterol 47 (40-60) mg/dL Urine Color Urine Appearance Urine pH (4.5-8.0) Ur Specific [place] (1.000-1.035) Urine Protein (Negative) Urine Glucose (UA) (Negative) g/dL Urine Ketones (NEGATIVE) Urine Occult Blood (Negative) Urine Nitrate (Negative) Urine Bilirubin (NEGATIVE) Urine Urobilinogen (0.2) E.U./dL Ur Leukocyte Esterase (NEGATIVE) Urine RBC (0-5/HPF) Urine WBC (0-5/HPF) Urine Bacteria (None) Ur Culture Indicated? Ur Random Sodium (30-90) mmol/L Urine Creatinine mg/dL SARS-CoV-2 (PCR) (Negative) 10/31/21 Range/Units 09:03 WBC (4.5-11.0) X10^3/uL RBC (4.5-5.9) X10^6/uL Hgb (13.5-17.5) g/dL Hct (41-53) % MCV (80-100) fL MCH (26-34) PG MCHC (30-36) % RDW (11.6-14.8) % Plt Count (150-400) X10^3/uL Neut % (Auto) (50-75) % Lymph % (Auto) (25-40) % [place] % (Auto) (3-14) % Eos % (Auto) (2-4) % Baso % (Auto) (0-2) % Neut # (Auto) (2124-3659) /uL Lymph # (Auto) (9492-2710) /uL [place] # (Auto) (0-900) /uL Eos # (Auto) (0-450) /uL Baso # (Auto) (0-100) /uL Sodium (137-145) mmol/L Potassium (3.4-5.1) mmol/L Chloride (98-107) mmol/L Carbon Dioxide (22-32) mmol/L BUN (9-20) mg/dL Creatinine (0.66-1.25) mg/dL Estimated GFR (>60) mL/min BUN/Creatinine Ratio (6-22) Glucose (80-110) mg/dL Hemoglobin A1c (4.0-6.0) % Calcium (8.4-10.2) mg/dL Total Bilirubin (0.2-1.3) mg/dL AST (17-59) IU/L ALT (<50) IU/L Alkaline Phosphatase (38-126) U/L Total Creatine Kinase (55-170) U/L CK-MB (CK-2) CK-MB (CK-2) Rel Index Troponin I (0.01-0.034) ng/mL Total Protein (6.3-8.2) g/dL Albumin (3.5-5.0) g/dL Globulin (1.7-4.1) g/dL Albumin/Globulin Ratio (1.0-2.8) Triglycerides (35-150) mg/dL Cholesterol (140-199) mg/dL LDL Cholesterol, Calc (<100) mg/dL HDL Cholesterol (40-60) mg/dL Urine Color Urine Appearance Urine pH (4.5-8.0) Ur Specific [place] (1.000-1.035) Urine Protein (Negative) Urine Glucose (UA) (Negative) g/dL Urine Ketones (NEGATIVE) Urine Occult Blood (Negative) Urine Nitrate (Negative) Urine Bilirubin (NEGATIVE) Urine Urobilinogen (0.2) E.U./dL Ur Leukocyte Esterase (NEGATIVE) Urine RBC (0-5/HPF) Urine WBC (0-5/HPF) Urine Bacteria (None) Ur Culture Indicated? Ur Random Sodium (30-90) mmol/L Urine Creatinine mg/dL SARS-CoV-2 (PCR) Negative (Negative) Discharge Plan Departure Patient Disposition: Admitted as Observation Clinical Impression: Brain TIA, Vertigo Admit Date/Time: 10/31/21 11:25 Admit Provider: Fausto Hollingsworth
--- NOTE | 2021-10-31 03:59 | DI.CT.S_ITS ---
PROCEDURE: CT HEAD/BRAIN WO CON INDICATIONS: on going dizzy TECHNIQUE: Noncontrast 4.5 mm thick angled axial sections acquired from the foramen magnum to the vertex, with coronal and sagittal reformats. For radiation dose reduction, the following was used: automated exposure control, adjustment of mA and/or kV according to patient size. COMPARISON: None. FINDINGS: Image quality: Excellent. CSF spaces: Basal cisterns are patent. No extra-axial fluid collections. Ventricles are normal in size and shape. Brain: No midline shift. No intracranial masses or hemorrhage. [place]-white matter interface is normal. Punctate subcortical and periventricular T2/FLAIR signal is consistent with microvascular ischemic disease. Skull and face: Calvarium and visualized facial bones are intact, without suspicious lesions. Sinuses: Visualized sinuses and mastoids are clear. IMPRESSION: No acute intracranial abnormality. Dictated by: Jomar Lobo M.D. on 10/31/2021 at 6:53 Approved by: Jomar Lobo M.D. on 10/31/2021 at 6:54
[2021-10-31 04:19] LABS: Add Manual Diff / Slide Review NO; Basophils Absolute Auto 0 /uL (0-100); Basophils Percent Auto 0.2 % (0-2); Eosinophils Absolute Auto 0 /uL (0-450); Eosinophils Percent Auto 0.3 % (2-4); Hematocrit 42.8 % (41-53); Hemoglobin 15.2 g/dL (13.5-17.5); Lymphocytes Absolute Auto 800 /uL (1100-4500); Lymphocytes Percent Auto 8.3 % (25-40); Mean Corpuscular HGB Conc 35.5 % (30-36); Mean Corpuscular Hemoglobin 30.9 PG (26-34); Mean Corpuscular Volume 87.1 fL (80-100); Monocytes Absolute Auto 400 /uL (0-900); Monocytes Percent Auto 3.4 % (3-14); Neutrophils Absolute Auto 9000 /uL (1500-7000); Neutrophils Percent Auto 87.8 % (50-75); Platelet Count 206 X10^3/uL (150-400); Red Blood Cell Count 4.91 X10^6/uL (4.5-5.9); Red Cell Distribution Width 12.9 % (11.6-14.8); White Blood Cell Count 10.3 X10^3/uL (4.5-11.0)
[2021-10-31 04:27] LABS: Bilirubin Total 0.5 mg/dL (0.2-1.3)
[2021-10-31 04:29] LABS: Creatine Kinase 61 U/L (55-170)
[2021-10-31 04:46] LABS: Troponin I < 0.012 ng/mL (0.01-0.034)
[2021-10-31] MEDS: SODIUM CHLORIDE 0.9% 1,000 ML 1000 ML IV (05:00)
[2021-10-31 05:09] LABS: Appearance Urine UA CLEAR; Bilirubin Urine UA NEGATIVE (NEGATIVE); Color Urine UA YELLOW; Glucose Urine UA NEGATIVE (Negative); Ketones Urine UA NEGATIVE (NEGATIVE); Leukocyte Esterase Urine UA NEGATIVE (NEGATIVE); Nitrite Urine UA NEGATIVE (Negative); Occult Blood Urine UA 3+ (Negative); Protein Urine UA TRACE (Negative); Specific Gravity Urine UA 1.015 (1.000-1.035); Urobilinogen Urine UA 0.2 E.U./dL (0.2); pH Urine UA 8.5 (4.5-8.0)
[2021-10-31 05:18] LABS: Bacteria Urine Few (2-10); RBC Urine 10-30/HPF (0-5/HPF); WBC Urine None Seen (0-5/HPF)
[2021-10-31 05:19] LABS: Culture Indicated Urine Cult Not Indicated
[2021-10-31 05:29] LABS: Creatinine Urine Random 75.8 mg/dL; Sodium Urine Random 134 mmol/L (30-90)
[2021-10-31 06:47] LABS: BUN Creatinine Ratio 21.7 (6-22); Blood Urea Nitrogen 15 mg/dL (9-20); Calcium 8.9 mg/dL (8.4-10.2); Carbon Dioxide 32 mmol/L (22-32); Chloride 105 mmol/L (98-107); Estimated Glomerular Filt Rate > 60.0 mL/min (>60); Glucose 122 mg/dL (80-110); HEMOLYSIS < 15 (0-50); Potassium 4.9 mmol/L (3.4-5.1); Sodium 139 mmol/L (137-145)
[2021-10-31 07:25] LABS: HEMOLYSIS 19 (0-50)
[2021-10-31 07:42] LABS: BUN Creatinine Ratio 20.8 (6-22); Blood Urea Nitrogen 15 mg/dL (9-20); Calcium 8.8 mg/dL (8.4-10.2); Carbon Dioxide 31 mmol/L (22-32); Chloride 106 mmol/L (98-107); Estimated Glomerular Filt Rate > 60.0 mL/min (>60); Glucose 120 mg/dL (80-110); HEMOLYSIS < 15 (0-50); Potassium 4.6 mmol/L (3.4-5.1); Sodium 141 mmol/L (137-145)
[2021-10-31 07:57] LABS: Chloride 103 mmol/L (98-107); Potassium 4.3 mmol/L (3.4-5.1); Sodium 139 mmol/L (137-145)
[2021-10-31 07:58] LABS: Carbon Dioxide 30 mmol/L (22-32)
[2021-10-31 07:59] LABS: Alanine Aminotransferase 21 IU/L (<50); Albumin 4.5 g/dL (3.5-5.0); Alkaline Phosphatase 89 U/L (38-126); Aspartate Aminotransferase 29 IU/L (17-59); BUN Creatinine Ratio 22.5 (6-22); Calcium 9.5 mg/dL (8.4-10.2); Estimated Glomerular Filt Rate > 60.0 mL/min (>60); Glucose 133 mg/dL (80-110); Total Protein 7.7 g/dL (6.3-8.2)
[2021-10-31 08:00] LABS: Albumin Globulin Ratio 1.4 (1.0-2.8); Globulin 3.2 g/dL (1.7-4.1)
--- NOTE | 2021-10-31 08:10 | DI.CT.S_ITS ---
PROCEDURE: CT ANGIO HEAD AND NECK INDICATIONS: significant dizziness, cannot ambulate TECHNIQUE: After the administration of intravenous contrast, 1 mm thick sections acquired from the aortic arch through the [place]. Post-contrast 4.5 mm thick sections then re-acquired from the foramen magnum to the vertex. 3-dimensional oivdprl-htwkvdckr-mdtchbjpyh (MIP) and/or volume rendering reformats were acquired of the central intracranial vasculature and neck separately. COMPARISON: [facility], CT, CT HEAD/BRAIN WO CON, 10/31/2021, 4:19. FINDINGS: Image quality: Excellent. BRAIN: CSF spaces: Ventricles are normal in size and shape. Basal cisterns are patent. No extra-axial fluid collections. Brain: No midline shift. No intracranial bleeds or masses. [place]-white matter interface appears intact. Skull and face: Calvarium and facial bones appear intact, without suspicious lesions. Orbits appear normal. Sinuses: Sinuses and mastoids are clear. HEAD CT ANGIOGRAPHY: Anterior circulation: No flow-limiting stenosis or occlusion of the internal carotid arteries, anterior cerebral arteries, or middle cerebral arteries. There is some luminal irregularity of the anterior and middle cerebral arteries proximally suggesting intracranial atherosclerotic change. Posterior circulation: The right vertebral artery is dominant. No flow-limiting stenosis or occlusion of the V4 segments, basilar artery, or posterior cerebral arteries. Grossly unremarkable cerebellar arteries. NECK CT ANGIOGRAPHY: Carotid system: The great vessels demonstrate a conventional anatomy as they arise from the aortic arch. The origins of the common carotid arteries appear patent. The common carotid arteries demonstrate normal caliber and courses. The bifurcation regions are both widely patent. The internal carotid arteries demonstrate normal calibers and courses. Posterior circulation: The origins of the vertebral arteries both appear widely patent. The more superior extracranial portions of both vertebral arteries also demonstrate normal courses and calibers. They join to form a normal appearing basilar artery. Soft tissues: Visualized neck soft tissues demonstrate no suspicious abnormalities. Bones: No suspicious bony lesions. Visualized cervical spine appears normally aligned. IMPRESSION: No flow-limiting stenosis or occlusion of the major intracranial or extracranial arterial circulation. Any quantitative measurements of stenosis were performed using NASCET criteria. Dictated by: Jp Bowman M.D. on 10/31/2021 at 9:22 Approved by: Jp Bowman M.D. on 10/31/2021 at 9:26
[2021-10-31] MEDS: MECLIZINE HCL 12.5 MG TABLET 25 MG PO (08:16)
[2021-10-31] MEDS: ONDANSETRON 4 MG/2 ML INJ IV (08:16)
--- NOTE | 2021-10-31 08:30 | PC.NURSE ---
patient was given an NIH. His speech is not garbled and no word salad but reports having a hard time speaking. He stated that his vision is different and that started with all his other symptoms. He reports slightly weaker left leg when raising off the bed but has no drift. He has neglect to the medial aspect of his left anterior graf but has sensation to the lateral aspect of his left anterior graf.
[2021-10-31 08:45] LABS: Blood Urea Nitrogen 18 mg/dL (9-20)
[2021-10-31 10:35] LABS: COVID19 - ADMIT (NP swab/PCR) Negative (Negative)
[2021-10-31 12:11] LABS: Cholesterol 182 mg/dL (140-199); HDL Cholesterol 47 mg/dL (40-60); LDL Cholesterol Calculated 126 mg/dL (<100); Triglycerides 46 mg/dL (35-150)
[2021-10-31 12:13] LABS: Hemoglobin A1C% w Est Avg Glu 5.2 % (4.0-6.0)
--- NOTE | 2021-10-31 12:23 | P.HP_ITS ---
History of Present Illness History of Present Illness Date Patient Seen: 10/31/21 Time Patient Seen: 12:24 Date of Onset of Symptoms: 10/24/21 Chief complaint: Vertigo Narrative: Patient is 76-year-old male resident of [place] in previous good health who was brought to emergency department due to acute severe unsteadiness of gait. He had elective Uro lift procedure [address] [facility] ([place], [place]). He states that approximately 1 week ago he had extreme weakness with standing up. He thought he was dehydrated and pushed p.o. fluids with some improvement in symptoms. He later had episode of vertigo which she noticed while sitting and looking outside and states everything started moving around him. He took a nap and symptoms went away by the time he woke up. Then 2 days ago he noticed sudden difficulty walking where he was forced to lean on things to maintain balance. The symptoms subsequently improved or went away. Last night he was feeling fine but woke up at midnight to urinate and found that he was extremely unsteady again and almost about to fall. He also had episode of large emesis. He then requested family to call medics to bring him to ED. he denies sudden loss of vision or diplopia, difficulty with speech, acute headache, unilateral weakness or numbness, palpitations, chest pain or dyspnea. He does note episode of mild hematuria since his surgery. 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 His NIHSS score was 1 in the ED. He was noted to be very unsteady when they stood him up. In the ED he has been mildly hypertensive with initial BP 158/82. EKG showed normal sinus rhythm. Head CT with microvascular disease and no acute findings. CTA showed atherosclerosis in anterior and middle cerebral arteries, no high- grade stenoses in had her neck. Patient denies history of hypertension. He has history of mild cholesterol elevations. No history of cardiac issues or stroke. Patient quit smoking in 1987. Family history notable for mother at age 92 with COPD and father at age 65 of kidney cancer. No family history of stroke or SC. Patient History Surgical History History of tonsillectomy Status post appendectomy Family & Social History Safety & Behavioral: Feels Safe in Current Yes Environment Tobacco & Substance use: Smoking Status Former smoker alcohol intake frequency other Substance Use Type does not use Meds Home Medications and Allergies Home Medications Medication Instructions Recorded Confirmed Type No Known Home Medications 10/31/21 10/31/21 History Allergies Allergy/AdvReac Type Severity Reaction Status Date / Time No Known Drug Allergies Allergy Verified 04/24/21 14:08 Review of Systems Review of Systems Narrative: Complete 10 point ROS negative except as noted above Exam Vital Signs (past 8 hours): - 10/31/21 04:30 10/31/21 05:00 10/31/21 05:22 Pulse Rate 75 72 73 Pulse Rate [Orthostatic Lying] Pulse Rate [Orthostatic Sitting] Pulse Rate [Orthostatic Standing] Respiratory Rate 15 21 15 Blood Pressure 156/73 H 133/68 Blood Pressure [Orthostatic Lying] Blood Pressure [Orthostatic Sitting] Blood Pressure [Orthostatic Standing] Pulse Oximetry 97 99 98 10/31/21 05:30 10/31/21 06:00 10/31/21 06:30 Pulse Rate 79 79 78 Pulse Rate [Orthostatic Lying] Pulse Rate [Orthostatic Sitting] Pulse Rate [Orthostatic Standing] Respiratory Rate 14 16 19 Blood Pressure 142/66 H 149/65 H 138/66 Blood Pressure [Orthostatic Lying] Blood Pressure [Orthostatic Sitting] Blood Pressure [Orthostatic Standing] Pulse Oximetry 98 98 98 10/31/21 07:00 10/31/21 07:30 10/31/21 08:00 Pulse Rate 81 72 81 Pulse Rate [Orthostatic Lying] Pulse Rate [Orthostatic Sitting] Pulse Rate [Orthostatic Standing] Respiratory Rate 13 15 27 H Blood Pressure 142/67 H 130/62 137/77 Blood Pressure [Orthostatic Lying] Blood Pressure [Orthostatic Sitting] Blood Pressure [Orthostatic Standing] Pulse Oximetry 97 99 100 10/31/21 08:03 10/31/21 08:05 10/31/21 08:09 Pulse Rate 79 84 Pulse Rate [Orthostatic Lying] 79 Pulse Rate [Orthostatic Sitting] 82 Pulse Rate [Orthostatic Standing] 80 Respiratory Rate 24 17 Blood Pressure 119/71 148/72 H Blood Pressure [Orthostatic Lying] 137/77 Blood Pressure [Orthostatic Sitting] 119/71 Blood Pressure [Orthostatic Standing] 148/72 H Pulse Oximetry 99 98 10/31/21 08:30 10/31/21 09:00 10/31/21 09:30 Pulse Rate 67 68 70 Pulse Rate [Orthostatic Lying] Pulse Rate [Orthostatic Sitting] Pulse Rate [Orthostatic Standing] Respiratory Rate 14 15 Blood Pressure 126/61 133/66 142/67 H Blood Pressure [Orthostatic Lying] Blood Pressure [Orthostatic Sitting] Blood Pressure [Orthostatic Standing] Pulse Oximetry 99 94 98 10/31/21 10:00 10/31/21 10:30 10/31/21 11:00 Pulse Rate 74 69 70 Pulse Rate [Orthostatic Lying] Pulse Rate [Orthostatic Sitting] Pulse Rate [Orthostatic Standing] Respiratory Rate 15 16 16 Blood Pressure Blood Pressure [Orthostatic Lying] Blood Pressure [Orthostatic Sitting] Blood Pressure [Orthostatic Standing] Pulse Oximetry 98 98 98 10/31/21 11:11 Pulse Rate 71 Pulse Rate [Orthostatic Lying] Pulse Rate [Orthostatic Sitting] Pulse Rate [Orthostatic Standing] Respiratory Rate 18 Blood Pressure 121/63 Blood Pressure [Orthostatic Lying] Blood Pressure [Orthostatic Sitting] Blood Pressure [Orthostatic Standing] Pulse Oximetry 98 Oxygen Delivery Method Room Air Narrative Exam Narrative: General: Patient is alert and pleasant well-developed well-nourished male in no acute distress HEENT: Nontraumatic, pupils equal and reactive to light and accommodation, EOMI, face symmetric Neck: No lymphadenopathy Lungs: Clear to auscultation Heart: Normal S1 and S2 regular rate and rhythm without murmur Abdomen: Soft and nontender, no HSM Extremities: No edema Neurological: Well-oriented, affect normal, speech fluent, [id number] and [id number] normal bilaterally, upper and lower extremity strength normal bilaterally, sensation intact bilaterally. There is no reproducible Objective Labs Result Diagrams: 10/31/21 04:11 10/31/21 07:21 Labs: Laboratory Results - last 24 hr 10/31/21 10/31/21 10/31/21 04:11 04:11 04:11 WBC 10.3 RBC 4.91 Hgb 15.2 Hct 42.8 MCV 87.1 MCH 30.9 MCHC 35.5 RDW 12.9 Plt Count 206 Neut % (Auto) 87.8 H Lymph % (Auto) 8.3 L [place] % (Auto) 3.4 Eos % (Auto) 0.3 L Baso % (Auto) 0.2 Neut # (Auto) 9000 H Lymph # (Auto) 800 L [place] # (Auto) 400 Eos # (Auto) 0 Baso # (Auto) 0 Sodium 139 Potassium 4.3 Chloride 103 Carbon Dioxide 30 BUN 18 Creatinine 0.80 Estimated GFR > 60.0 BUN/Creatinine Ratio 22.5 H Glucose 133 H Hemoglobin A1c Calcium 9.5 Total Bilirubin 0.5 AST 29 ALT 21 Alkaline Phosphatase 89 Total Creatine Kinase 61 CK-MB (CK-2) TNP CK-MB (CK-2) Rel Index TNP Troponin I < 0.012 Total Protein 7.7 Albumin 4.5 Globulin 3.2 Albumin/Globulin Ratio 1.4 Triglycerides Cholesterol LDL Cholesterol, Calc HDL Cholesterol Urine Color Urine Appearance Urine pH Ur Specific [place] Urine Protein Urine Glucose (UA) Urine Ketones Urine Occult Blood Urine Nitrate Urine Bilirubin Urine Urobilinogen Ur Leukocyte Esterase Urine RBC Urine WBC Urine Bacteria Ur Culture Indicated? Ur Random Sodium Urine Creatinine SARS-CoV-2 (PCR) 10/31/21 10/31/21 10/31/21 04:11 04:58 04:58 WBC RBC Hgb Hct MCV MCH MCHC RDW Plt Count Neut % (Auto) Lymph % (Auto) [place] % (Auto) Eos % (Auto) Baso % (Auto) Neut # (Auto) Lymph # (Auto) [place] # (Auto) Eos # (Auto) Baso # (Auto) Sodium Potassium Chloride Carbon Dioxide BUN Creatinine Estimated GFR BUN/Creatinine Ratio Glucose Hemoglobin A1c 5.2 Calcium Total Bilirubin AST ALT Alkaline Phosphatase Total Creatine Kinase CK-MB (CK-2) CK-MB (CK-2) Rel Index Troponin I Total Protein Albumin Globulin Albumin/Globulin Ratio Triglycerides Cholesterol LDL Cholesterol, Calc HDL Cholesterol Urine Color Yellow Urine Appearance Clear Urine pH 8.5 H Ur Specific [place] 1.015 Urine Protein Trace H Urine Glucose (UA) Negative Urine Ketones Negative Urine Occult Blood 3+ H Urine Nitrate Negative Urine Bilirubin Negative Urine Urobilinogen 0.2 Ur Leukocyte Esterase Negative Urine RBC 10-30/hpf H Urine WBC None seen Urine Bacteria Few (2-10) H Ur Culture Indicated? Cult not indicated Ur Random Sodium 134 H Urine Creatinine 75.8 SARS-CoV-2 (PCR) 10/31/21 10/31/21 10/31/21 06:30 07:21 07:21 WBC RBC Hgb Hct MCV MCH MCHC RDW Plt Count Neut % (Auto) Lymph % (Auto) [place] % (Auto) Eos % (Auto) Baso % (Auto) Neut # (Auto) Lymph # (Auto) [place] # (Auto) Eos # (Auto) Baso # (Auto) Sodium 139 141 Potassium 4.9 4.6 Chloride 105 106 Carbon Dioxide 32 31 BUN 15 15 Creatinine 0.69 0.72 Estimated GFR > 60.0 > 60.0 BUN/Creatinine Ratio 21.7 20.8 Glucose 122 H 120 H Hemoglobin A1c Calcium 8.9 8.8 Total Bilirubin AST ALT Alkaline Phosphatase Total Creatine Kinase CK-MB (CK-2) CK-MB (CK-2) Rel Index Troponin I Total Protein Albumin Globulin Albumin/Globulin Ratio Triglycerides 46 Cholesterol 182 LDL Cholesterol, Calc 126 H HDL Cholesterol 47 Urine Color Urine Appearance Urine pH Ur Specific [place] Urine Protein Urine Glucose (UA) Urine Ketones Urine Occult Blood Urine Nitrate Urine Bilirubin Urine Urobilinogen Ur Leukocyte Esterase Urine RBC Urine WBC Urine Bacteria Ur Culture Indicated? Ur Random Sodium Urine Creatinine SARS-CoV-2 (PCR) 10/31/21 09:03 WBC RBC Hgb Hct MCV MCH MCHC RDW Plt Count Neut % (Auto) Lymph % (Auto) [place] % (Auto) Eos % (Auto) Baso % (Auto) Neut # (Auto) Lymph # (Auto) [place] # (Auto) Eos # (Auto) Baso # (Auto) Sodium Potassium Chloride Carbon Dioxide BUN Creatinine Estimated GFR BUN/Creatinine Ratio Glucose Hemoglobin A1c Calcium Total Bilirubin AST ALT Alkaline Phosphatase Total Creatine Kinase CK-MB (CK-2) CK-MB (CK-2) Rel Index Troponin I Total Protein Albumin Globulin Albumin/Globulin Ratio Triglycerides Cholesterol LDL Cholesterol, Calc HDL Cholesterol Urine Color Urine Appearance Urine pH Ur Specific [place] Urine Protein Urine Glucose (UA) Urine Ketones Urine Occult Blood Urine Nitrate Urine Bilirubin Urine Urobilinogen Ur Leukocyte Esterase Urine RBC Urine WBC Urine Bacteria Ur Culture Indicated? Ur Random Sodium Urine Creatinine SARS-CoV-2 (PCR) Negative Assessment & Plan Assessment & Plan narrative: 1. Possible acute CVA, present on admission, active -patient presenting with 1 week of intermittent severe difficulty with balance which is not positional -head CT no acute findings, CTA with atherosclerosis in middle and anterior cerebral arteries, no high-grade stenosis, no carotid artery or vertebral basilar stenosis -brain MRI -echo -telemetry -glucose 120, check hemoglobin A1c -check lipid panel -aspirin 81 mg q.d. -atorvastatin 40 mg HS -trend BP, allow permissive hypertension -PT/OT consult 2. Status post UroLift procedure -patient had urological surgery 10 days ago -monitor for hematuria Code status: Full code DVT prophylaxis: Lovenox Admit status: Observation Time Spent With Patient Critical Care time: I spent a total of [] minutes of critical care time on this patient's care today; this time is exclusive of procedural time.
[2021-10-31] MEDS: ASPIRIN 325 MG TABLET PO (13:55)
--- NOTE | 2021-10-31 15:39 | PC.NURSE ---
Addendum entered by Tami Arias R.N. 10/31/21 18:25: Patient denies pain and is resting in bed. He has used the urinal twice and is resting comfortably. Original Note: Patients NIH scale was 0. He does not have any drift in his bilateral arms or legs. Although patient did have a fall at home and per PT is looks like he has a frozen shoulder as he is not able to lift his arm up over his shoulder, he can only lift it half of the way. He was given aspirin, admission assessment is done. He denies nausea or dizziness at this time and his swollow and appetite or both good. Resting until dinner time at 1700.
--- NOTE | 2021-10-31 15:59 | PT.IIE ---
Surgical History (Last Reviewed 04/24/21 @ 14:52 by Gertrude Tian DO) History of tonsillectomy Status post appendectomy Physical Therapy Inpatient Evaluation/Re-Eval M1 PT/OT-IP Prior Functional Status Start: 10/31/21 15:40 Freq: NEEDED Status: Active Protocol: Document 10/31/21 15:46 [facility] (Rec: 10/31/21 15:59 [facility] [id number]) Medical Review Prior Functional Status Medical History Reviewed Yes Diet/Fluid Consistency Regular Communication WNL Mobility and Gait Pt reports indep without AD. Notes he normally is very active Activities of Daily Living and IADL's Pt is indep w/all ADLs, and indep w/cooking, cleaning, etc . He drives still w/o issues Social History Household Members none Living Arrangements House Number of Floors (Floors) Two Floors Number of Stairs To Enter/Railing? 1 LITO Home Environment Standard Height Toilet,Walk in Shower Additional Social History Comment Pt will have a roommate moving in this week, but does not know a lot about them. He used to have his bedroom wher ehe had to do the stairs but is considering changing which room he uses at home. Pt plans to stay w/son when out of the hospital who also lives on [facility]. he has a flat entry for a 2 level home, but pt will stay on 1 level. Son has a walk in shower and normal height toilet. M2 PT-IP Current Condition Start: 10/31/21 15:40 Freq: NEEDED Status: Active Protocol: Document 10/31/21 15:46 [facility] (Rec: 10/31/21 15:59 [facility] [id number]) Physical Therapy Current Condition Current Condition Evaluation Date 10/31/21 Treatment Diagnosis possible CVA M3 PT-IP Subjective Start: 10/31/21 15:40 Freq: NEEDED Status: Active Protocol: Document 10/31/21 15:46 [facility] (Rec: 10/31/21 15:59 [facility] [id number]) Subjective Physical Therapy Visit Type Type Initial Evaluation Visit Start Time 14:53 Visit Stop Time 15:30 Total Visit Minutes 37 Number of HEALTH SERVICES MANAGER Visits 0 Physical Therapy Visit Comments Patient Comments Pt reports he really wants to get back to normal. The vertigo has really affected his mobility. M4 PT-IP Mobility and Gait Start: 10/31/21 15:40 Freq: NEEDED Status: Active Protocol: Document 10/31/21 15:46 [facility] (Rec: 10/31/21 15:59 [facility] [id number]) PT-Bed Mobility Assessment Supine to Sit Supine to Sit Independent,Head of Bed Elevated,Bedrails Sit to Supine Sit to Supine Independent,Head of Bed Elevated,Bedrails Scooting Scooting to Edge of Bed Independent Scooting Up and Down in Bed Independent PT-Transfer Assessment Sit to and From Stand Sit to and from Stand Standby Assistance,Use of Upper Extremities Equipment Transfer Assistive Device Gait Belt,Front Wheeled Walker Orthotic/Prosthetic Devices or Brace: No Comments Mobility Comments supine to sit w/HOB elevated about 25 deg and use of bed rail indep. indep w/scoot to EOB. Pt did sit to stand SBA. supine BP 127/66, seated 128/ 66, standing 138/74, after gait 147/73. Pt was able to walk in room slowly w/FWW with small steps and some lat trunk leaning w/WB w/CGA. He amb about 50ft before sititng down and noting fatigue. pt did not have dizziness w/gait or w/head turns vertical or horizontal. Sit to supine indep w/ rail. Pt adjusted in bed indep and left w/call light in reach & bed alarm on. Gait Assessment Gait Gait Assistance Required: Contact Guard Assist Distance (Feet) 50 Able to Maintain Weight Bearing Status Yes During Gait Assistive Devices Assistive Device Gait Belt,Front Wheeled Walker Gait Deviations General Gait Pattern Decreased Stride Length, Decreased Feet Clearance, Lateral Trunk Lean Factors Limiting Gait Function Factors Limiting Gait Function Decreased Activity Tolerance, Decreased Strength,Poor Balance PT-Balance Assessment Sitting Balance and Reactions Static Sitting Balance Ability Good Dynamic Sitting Balance Ability Good Standing Balance and Reactions Static Standing Balance Ability Fair Dynamic Standing Balance Ability Poor Device Used FWW M5 PT-IP Objective Assessments Start: 10/31/21 15:40 Freq: NEEDED Status: Active Protocol: Document 10/31/21 15:46 [facility] (Rec: 10/31/21 15:59 [facility] [id number]) Orientation Orientation/Cognition Level of Alertness Alert Orientation Name,Age,Birthday,Month,Date, Year,Day of Week,Place, Situation Language Function Ability No Deficits Noted Safety Awareness Understands Safety Issues Memory Description No Deficits Noted Gross Range of Motion Upper Extremity ROM Assessment Left Impaired Impairments history of L frozen shoulder Lower Extremity ROM Assessment Within Functional Limits Strength Lower Extremity Strength Assessment Left Impaired Hip 5/5 flex, abd, add R; 4-/5 hip flex 4+/5 add/abd seated testing Knee 5/5 R, 4/5 L Ankle 5/5 R, 4+/5 L Sensation Assessment Sensation Gross Sensation WNL Light Touch Intact M6 PT-IP Treatment Start: 10/31/21 15:40 Freq: NEEDED Status: Active Protocol: Document 10/31/21 15:46 [facility] (Rec: 10/31/21 15:59 [facility] [id number]) Physical Therapy Treatment Education Education Provided Safety M7 PT-IP Assessment and Plan Start: 10/31/21 15:40 Freq: NEEDED Status: Active Protocol: Document 10/31/21 15:46 [facility] (Rec: 10/31/21 15:59 [facility] [id number]) PT Summary Assessment and Plan Potential Rehabilitation Potential Good Status of Condition at Evaluation Unstable Summary Impairments Strength,Balance,Bed Mobility, Transfers,Gait,Activity Tolerance Assessment Summary Pt presents with dizziness that started about 1 week ago and that has been intermittent w/recent Urolift procedure ( 10 days ago). He is normally very active and today, pt presents w/shuffling gait and unsteadiness when on his feet with definite need for the FWW . He is frustrtated by his dec in mobility and motivated to return to his normal level of strength. He has notable L hip and knee weakness compared to his R but noted in standing his L felt stronger than his R . 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 He would benefit from PT to work on his mobility skills including: gait, balance, LE strength and transfers. Goals Bed Mobility Goal Independent Transfer Goal Independent Gait Goal Independent Gait Distance 150 Other Goals up/down 1 step w/o LOB indep Days to Meet Goals 6 Frequency of Treatment Frequency Of Treatment Once a Day Treatment Plan Physical Therapy Treatment Plan Bed Mobility Training,Transfer Training,Gait Training, Therapeutic Exercise,Balance Retraining,Discharge Planning, Neuromuscular Re-ed Other Recommendations and Next Treatment balance exercises, seated/ Focus supine exercises, inc gait distance & safety Recommendations To Nursing Amount of Assist Needed 1 Person Assist Discharge Recommendations PT Discharge Recommendations Home with Assistance,Home Health,Outpatient PT Other Discharge Recommendations HH vs OP PT for strength & balance Equipment Needed for Home Before FWW, shower chair, grab bars Discharge possibly Transportation Needs at Discharge Private Vehicle
[2021-10-31] MEDS: ATORVASTATIN 20 MG TABLET 40 MG PO (20:08)
[2021-10-31] MEDS: SODIUM CHLORIDE 0.9% FLUSH 10 ML IV (20:57)
[2021-11-01] VITALS (7 sets, daily range): BP systolic 129–142; BP diastolic 65–80; PULSE 84–89; RESP 18; TEMP 36.3–37.2; O2SAT 92–100
--- NOTE | 2021-11-01 08:11 | PC.NURSE ---
Addendum entered by Tami Arias R.N. 11/01/21 15:59: Patient will be discharged home around 1900. His paperwork will be ready and his son will be coming off of the [place]. He is resting and ready for dinner he states. Denies any pain or discomfort. Original Note: Assess- Patient is alert and oriented x3. His NIH is wnl and he has know deficits noted. He will have an MRI and is a one person assist when ambulating with walker. He is using the urinal at bedside and resting comfortably.
--- NOTE | 2021-11-01 08:17 | DI.MRI.S_ITS ---
PROCEDURE: MR STROKE Pre- and post-contrast brain MRI, non-contrast brain MR angiogram, pre- and postcontrast neck MR angiogram INDICATIONS: poss CVA TECHNIQUE: Brain: Noncontrast axial T1 spin echo, axial T2 fast spin echo, sagittal and axial FLAIR, coronal T2 fast spin echo, axial gradient echo, axial diffusion and ADC through the brain. After the administration of contrast, axial 3D VIBE of the cranial vasculature and brain. Brain MRA: Non-contrast 3-D time of flight MR angiogram, with multiple dayqgkj-hnqvqakfj-tuzscyvrff (MIP) reformats performed. Neck MRA: Axial and sagittal TruFISP through the neck. Coronal dynamic MR angiogram during administration of contrast in the arterial and venous phases, with 3-dimenstional aaejwqv-fxgouplvo-ucchwhtbkv (MIP) reformats constructed from subtraction images. COMPARISON: [facility], CT, CT HEAD/BRAIN WO CON, 10/31/2021, 4:19. FINDINGS: Image quality: Excellent. BRAIN: CSF spaces: Ventricles are normal in size and shape. Basal cisterns are patent. No extra-axial fluid collections. Brain: The right inferior medial cerebellum demonstrates diffusion restriction with associated low signal on ADC and increased signal on T2/FLAIR consistent with a subacute infarction. This area measures 3.5 x 4.3 x 1.5 cm. No intracranial bleeds or mass effects. [place]-white matter interface is normal. Brainstem appears normal. Normal intravascular flow voids are present. No abnormal intracranial enhancement. Skull and face: Calvarial marrow signal is normal. Orbits appear normal. Sinuses: The right maxillary sinus has mucosal retention cysts and mucosal thickening. BRAIN MR ANGIOGRAM: Anterior circulation: Intracranial internal carotid arteries are normal in size and enhancement. The flow within the paired anterior cerebral arteries is normal and symmetric. The flow within the middle cerebral arteries is normal and symmetric. The anterior communicating artery is seen. No stenoses, occlusions, or aneurysms. Posterior circulation: The right vertebral artery is dominant. The left vertebral artery is non dominant and small. 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 The visualized portions of the vertebral arteries demonstrate normal caliber, and join to form a normal appearing basilar artery. The flow within the posterior cerebral arteries is normal and symmetric. No stenoses, occlusions, or aneurysms. NECK MR ANGIOGRAM: Carotids: Great vessels demonstrate a conventional anatomy as they arise from the aortic arch. The origins of the common carotid arteries appear patent. The calibers and courses of both common carotid arteries are normal. The bifurcation regions appear normal bilaterally. The internal carotid arteries demonstrate normal course and caliber. Posterior circulation: The origins of the vertebral arteries appear patent. More superior portions of both vertebral arteries demonstrate normal course and caliber, and join to form a normal appearing basilar artery. Miscellaneous: Subclavian arteries appear patent. Pre-contrast images through the neck show no soft tissue abnormalities. 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 BRAIN MR ANGIOGRAM: No focal stenosis or thrombosis. NECK MR ANGIOGRAM: No focal stenosis or thrombosis. Dictated by: Jomar Lobo M.D. on 11/01/2021 at 10:16 Approved by: Jomar Lobo M.D. on 11/01/2021 at 10:51
--- NOTE | 2021-11-01 08:17 | DI.ECHO.S_ITS ---
[facility]---------+ [facility] +---------+ : : [address] : : : : [id number] : : : : Phone: [phone]+ Echocardiogram Report + + :Name: ARMAAN GALLO Study Date: 11/01/2021 Height: 73 in : :[facility] ReadingLocation: Weight: 174 lb : : Gender: Male BSA: 2.0 m2 : :: 1945 Age: 76 yrs BP: 129/68 mmHg: :Reason For Study: HTN, CVA : :Ordering Physician: ALESSIO, : :ARTURO Performed By: Teresa Iqbal : :Referring: ARTURO MCCALLUM : + + Interpretation Summary Normal sinus rhythm. Normal LV size, wall thickness, wall motion and LV systolic function. EF is 55-60%. Normal chamber sizes No valvular abnormalities. No prior study available for comparison. No source of embolism found. Procedure: A two-dimensional transthoracic echocardiogram with color flow and Doppler was performed. The study quality was technically difficult. Pectus excavatum. There is no prior echocardiogram noted for this patient. The patient was in sinus rhythm with heart rates between 75-90 bpm during the exam. Left Ventricle: The left ventricle is normal in size and wall thickness. The ejection fraction is estimated to be 55-60%. Right Ventricle: The right ventricle is normal in size and function. Atria: The left atrium grossly appears normal in size. Right atrial size is normal. There is no Doppler evidence for an interatrial shunt. Mitral Valve: The mitral valve is normal in structure and function. There is trace mitral regurgitation. Aortic Valve: The aortic valve is not well visualized. There is no aortic valve stenosis. No aortic regurgitation is present. Tricuspid Valve: The tricuspid valve is not well visualized, but is grossly normal. There is trace tricuspid regurgitation. Pulmonic Valve: The pulmonic valve is not well visualized. There is mild pulmonic regurgitation. Great Vessels: The aortic root is normal size. The ascending aorta could not be visualized. The IVC is of normal diameter and collapses greater than 50% with a sniff. This suggests a low right atrial pressure of 3 mm Hg. Pericardium/ Pleura There is no pericardial effusion. There is no pleural effusion. MMode/2D Measurements & Calculations LVIDd: 4.2 cm LVOT diam: 2.3 cm LVIDs: 2.9 cm Ao root diam: 3.2 cm FS: 29.1 % Ao Arch Diam (Prox Trans): 2.2 cm IVSd: 0.83 cm LVPWd: 0.78 cm LV sam. diameter/BSA (cm/m^2): 2.0 LV sys. diameter/BSA (cm/m^2): 1.5 LA A4 area: 11.4 cm2 RA long axis: 4.6 cm LA length (vol): 4.0 cm RA area: 16.2 cm2 RA vol: 48.4 ml RA : 23.9 ml/m2 IVC diam: 1.3 cm RVD1 (basal): 3.9 cm TAPSE: 2.6 cm Doppler Measurements & Calculations Ao V2 max: 89.1 cm/sec LVOT Max Tylor: 68.9 cm/sec Ao V2 mean: 63.3 cm/sec LV V1 max P.9 mmHg Ao max P.2 mmHg LV V1 VTI: 14.7 cm Ao mean P.8 mmHg SANDHYA(I,D): 3.6 cm2 Ao V2 VTI: 16.9 cm SANDHYA(V,D): 3.2 cm2 sev ratio: 0.87 SANDHYA indexed to BSA (cm^2/m^2): 1.8 MV E max tylor: 60.0 cm/sec PA V2 max: 78.8 cm/sec MV A max tylor: 49.2 cm/sec PA V2 mean: 61.0 cm/sec MV E/A: 1.2 PA mean P.6 mmHg Med Peak E' Tylor: 6.2 cm/sec PA pr(Accel): 8.8 mmHg E/E' med: 9.7 Lat Peak E' Tylor: 8.1 cm/sec E/E' lat: 7.4 E/e' average: 8.5 MV dec time: 0.25 sec SV(LVOT): 61.6 ml Electronically signed by: Esther Su M.D. on Reading Physician:11/01/2021 02:58 PM
[2021-11-01] MEDS: ENOXAPARIN 40 MG/0.4 ML SYRINGE SUBCUT (08:28)
[2021-11-01] MEDS: ASPIRIN EC 81 MG TABLET PO (08:28)
--- NOTE | 2021-11-01 10:42 | CM.DANOTE ---
DCP Assessment: patient is a 76 yr old male who was admitted for possible CVA. Currently lives on [address] [facility] in a two story home. according to the patient he is independent with all ADLS and drives at baseline. Pt recommends home with 1 person assistance. patient plans to DC home with his son to gain strength and to have someone around. patients son lives on [facility] and will be transporting the patient home when medically cleared. [place]. patient plans on having a roomate move in soon. Currently MRI is pending. I: Medicare and [employer] Plan: DC home with son on [address] [facility] [facility] when medically stable for DC. patient will need priority boarding when DC. No other DC planning needs identified at this time. Cindy smart RNhvac journeyman Discharge Planning/Care Management CM Discharge Assessment Start: 11/01/21 10:38 Freq: Status: Active Protocol: Document 11/01/21 10:38 [facility] (Rec: 11/01/21 10:42 [facility] [id number]) Discharge Planning Assessment Assigned Assistant To The Dean Cindy Smart RN Case Manger DPOA/Assigned Designee Name alex steward () Contact Information [phone] Advance Directives? No History Provided By Patient,Medical Record Has Patient been admitted in last 30 No days? Comment [facility] [place] [facility] the [facility] Prior Living Arrangements House Household Members none Type of transporation used prior to Relies on Others admit Independent with ADL's Yes Is patient alert and oriented? Yes DME Already Rented / Owned FWW / Walker Comment Currently is a 1 person stand by assist with FWW ambulation Patient/Family Preference OP PT Therapy Barriers to Discharge No Discharge Plan Home Transportation Arrangement Patients son will help with transportation back to [place] will need priority boarding when medically stabel for DC. Referrals Initiated None needed Review Status In Process Next Review Type Continued Stay Review
--- NOTE | 2021-11-01 12:14 | PT.IPTN ---
Physical Therapy Treatment Note M2 PT-IP Current Condition Start: 10/31/21 15:40 Freq: NEEDED Status: Active Protocol: Document 10/31/21 15:46 [facility] (Rec: 10/31/21 15:59 [facility] [id number]) Physical Therapy Current Condition Current Condition Evaluation Date 10/31/21 Treatment Diagnosis possible CVA M3 PT-IP Subjective Start: 10/31/21 15:40 Freq: NEEDED Status: Active Protocol: Document 11/01/21 12:14 [facility] (Rec: 11/01/21 12:35 [facility] [id number]) Subjective Physical Therapy Visit Type Type Treatment Note Visit Start Time 11:50 Visit Stop Time 12:14 Total Visit Minutes 24 Number of SPOOLING MACHINE OPERATOR Visits 0 Physical Therapy Visit Comments Patient Comments When I have the vertigo symptoms, it feels like my head is really congested. Patient Goals Planning to discharge to his son's house and occupy the lower level. M4 PT-IP Mobility and Gait Start: 10/31/21 15:40 Freq: NEEDED Status: Active Protocol: Document 11/01/21 12:14 [facility] (Rec: 11/01/21 12:35 [facility] [id number]) PT-Bed Mobility Assessment Supine to Sit Supine to Sit Independent Sit to Supine Sit to Supine Independent PT-Transfer Assessment Sit to and From Stand Sit to and from Stand Standby Assistance,Use of Upper Extremities Equipment Transfer Assistive Device Gait Belt,Front Wheeled Walker Orthotic/Prosthetic Devices or Brace: No Transfers Transfer Destination Bed,Toilet Transfer Technique amb with FWW Comments Mobility Comments Pt sat up EOB independently and stood SBA with FWW. He ambulated in the room and out to the halls a total of 130 feet SBA without evidence of imbalance. On return to the room, pt was observed briefly without FWW and he was much less steady without AD. He used FWW to walk to the toilet , transferring SBA. He then returned to the bed for echocardiogram. Gait Assessment Gait Gait Assistance Required: Standby Assistance,Contact Guard Assist Distance (Feet) 130 Assistive Devices Assistive Device Gait Belt,Front Wheeled Walker Orthotic/Prosthetic Devices or Brace: No Gait Deviations General Gait Pattern Decreased Stride Length, Decreased Feet Clearance, Lateral Trunk Lean Factors Limiting Gait Function Factors Limiting Gait Function Decreased Activity Tolerance, Decreased Strength,Poor Balance Stair Climbing Assessment Evaluation Level of Assist On Stairs Standby Assistance Devices Stair Climbing Assistive Devices Right Railing Technique/Endurance Stair Climbing Direction Ascend and Descend Stair Climbing Technique Step Over Step,Step to Step Number of Steps Climbed 3 Stair Climbing Set # Repetitions (reps) 1 Comments Stair Climbing Comments Pt ascended with R rail step over step and descended with L rail step-to leading with LLE . PT-Balance Assessment Sitting Balance and Reactions Static Sitting Balance Ability Good Dynamic Sitting Balance Ability Good Standing Balance and Reactions Static Standing Balance Ability Fair Dynamic Standing Balance Ability Fair Device Used FWW M5 PT-IP Objective Assessments Start: 10/31/21 15:40 Freq: NEEDED Status: Active Protocol: Document 10/31/21 15:46 [facility] (Rec: 10/31/21 15:59 [facility] [id number]) Orientation Orientation/Cognition Level of Alertness Alert Orientation Name,Age,Birthday,Month,Date, Year,Day of Week,Place, Situation Language Function Ability No Deficits Noted Safety Awareness Understands Safety Issues Memory Description No Deficits Noted Gross Range of Motion Upper Extremity ROM Assessment Left Impaired Impairments history of L frozen shoulder Lower Extremity ROM Assessment Within Functional Limits Strength Lower Extremity Strength Assessment Left Impaired Hip 5/5 flex, abd, add R; 4-/5 hip flex 4+/5 add/abd seated testing Knee 5/5 R, 4/5 L Ankle 5/5 R, 4+/5 L Sensation Assessment Sensation Gross Sensation WNL Light Touch Intact M6 PT-IP Treatment Start: 10/31/21 15:40 Freq: NEEDED Status: Active Protocol: Document 11/01/21 12:14 [facility] (Rec: 11/01/21 12:35 [facility] [id number]) Physical Therapy Treatment Education Education Provided Safety Other Treatments Other Treatment Performed Pt sat EOB and participated in brief vestibular and occulomotor screening. Head thrust test was vaguely positive. No spontaneous or gaze-evoked nystagmus was observed. Convergence and divergence WNL. Introduced gaze stabilization exercise with head turns and provided pt with a handout for independent practice. M7 PT-IP Assessment and Plan Start: 10/31/21 15:40 Freq: NEEDED Status: Active Protocol: Document 11/01/21 12:14 [facility] (Rec: 11/01/21 12:35 [facility] [id number]) PT Summary Assessment and Plan Potential Rehabilitation Potential Good Status of Condition at Evaluation Evolving Summary Impairments Strength,Balance,Bed Mobility, Transfers,Gait,Activity Tolerance Assessment Summary MRI report posted while PT was working with patient. 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 Pt presents with mild gaze stabilization difficulties and PT introduced exercise to address. Pt's gait with FWW is improving but he remains unstable without AD. He will need a FWW for home use. Pt states he plans to go stay with his son at discharge and his son will be able to provide assist. Goals Bed Mobility Goal Independent Transfer Goal Independent Gait Goal Independent Gait Distance 150 Other Goals up/down 1 step w/o LOB indep Days to Meet Goals 6 Frequency of Treatment Frequency Of Treatment Once a Day Treatment Plan Physical Therapy Treatment Plan Bed Mobility Training,Transfer Training,Gait Training, Therapeutic Exercise,Balance Retraining,Discharge Planning, Neuromuscular Re-ed Other Recommendations and Next Treatment review gaze stab exercise; Focus balance exercises, seated/ supine exercises, inc gait distance & safety Recommendations To Nursing Amount of Assist Needed Standby Assistance Discharge Recommendations PT Discharge Recommendations Home with Assistance,Home Health,Outpatient PT Other Discharge Recommendations HH vs OP PT for strength & balance Equipment Needed for Home Before FWW, shower chair, grab bars Discharge possibly Transportation Needs at Discharge Private Vehicle
--- NOTE | 2021-11-01 15:17 | P.DS_ITS ---
History of Present Illness History of Present Illness Chief complaint: Vertigo Narrative: Per Dr. Hollingsworth: Patient is 76-year-old male resident of [place] in previous good health who was brought to emergency department due to acute severe unsteadiness of gait.? He had elective Uro lift procedure [address] [facility] ([place], [place]).? He states that approximately 1 week ago he had extreme weakness with standing up.? He thought he was dehydrated and pushed p.o. fluids with some improvement in symptoms.? He later had episode of vertigo which she noticed while sitting and looking outside and states everything started moving around him.? He took a nap and symptoms went away by the time he woke up.? Then 2 days ago he noticed sudden difficulty walking where he was forced to lean on things to maintain b alance.? The symptoms subsequently improved or went away.? Last night he was feeling fine but woke up at midnight to urinate and found that he was extremely unsteady again and almost about to fall.? He also had episode of large emesis.? He then requested family to call medics to bring him to ED. he denies sudden loss of vision or diplopia, difficulty with speech, acute headache, unilateral weakness or numbness, palpitations, chest pain or dyspnea.? He does note episode of mild hematuria since his surgery.? 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 His NIHSS score was 1 in the ED.? He was noted to be very unsteady when they stood him up. In the ED he has been mildly hypertensive with initial BP 158/82.? EKG showed normal sinus rhythm.? Head CT with microvascular disease and no acute findings.? CTA showed atherosclerosis in anterior and middle cerebral arteries, no high- grade stenoses in had her neck. Patient denies history of hypertension.? He has history of mild cholesterol elevations.? No history of cardiac issues or stroke. Patient quit smoking in 1987. Family history notable for mother at age 92 with COPD and father at age 65 of kidney cancer.? No family history of stroke or MO. Discharge Providers Provider Date of admission: 10/31/21 11:25 Discharge Date: 11/01/21 Primary care physician: Gareth Hogan MD Consults: 10/31/21 12:18 Consult to Occupational Therapy Evaluate & Treat Comment: Physician Instructions: Evaluate and treat Consult to Physical Therapy Evaluate & Treat Comment: Physician Instructions: Evaluate and Treat Discharge provider: Darren Servin MD Summary Hospital Course Discharge Diagnosis: 1. Acute CVA 2. s/p UroLift procedure Hospital Course: Mr. Gee presented with 1 week of balance difficulty. His MRI of the brain confirmed a stroke in the cerebellum. His CT head and CTA head showed no bleeding and no high grade stenosis. His ECHO showed normal EF and no acute abnormalitis. He was started on aspirin and statin. He worked with PT who recommended home PT. He will be referred for this. He was discharged on aspirin and statin. His blood pressure was well controlled in the hospital. He should follow up with his PCP in 1-2 weeks. Exam Vital Signs (past 8 hours): - 11/01/21 07:37 11/01/21 08:00 11/01/21 11:55 Temperature 98.6 F Pulse Rate Respiratory Rate 18 Blood Pressure 129/77 Pulse Oximetry 97 96 96 11/01/21 12:00 Temperature 97.4 F L Pulse Rate 84 Respiratory Rate 18 Blood Pressure 138/71 Pulse Oximetry 100 Oxygen Delivery Method Room Air Oxygen Flow Rate 0 Narrative Exam Narrative: General:?no acute distress Lungs:? Clear bilaterally Heart:? regular rate and rhythm without murmur Abdomen:? Soft and nontender Extremities:? No edema Neurological:? speech fluent, upper and lower extremity strength normal bilaterally, sensation intact bilaterally. Objective Labs Result Diagrams: 10/31/21 04:11 10/31/21 07:21 [facility] Surgical History History of tonsillectomy Status post appendectomy Social History household members: none Smoking Status: Former smoker Discharge Plan Discharge Plan Patient Disposition: Home Health Service Provider Discharge Comment: Mr. Gee was admitted with dizziness and weakness. He was found to have a stroke. He was started on aspirin and atorvastatin to reduce the risk of stroke. He will be referred to follow up with physical and occupational therapy. Discharge orders & Medications Prescriptions: New aspirin 81 mg Tablet,Delayed Release (Dr/Ec) 81 mg PO DAILY Qty: 30 0RF atorvastatin 40 mg tablet 40 mg PO BEDTIME Qty: 30 0RF Follow up/Referrals: Gareth Hogan MD [Primary Care Provider] - Diet/Activity/Treatments Diet: Diet as Tolerated Discharge Data Primary Care Provider: Gareth Hogan Attending Provider: Fausto Hollingsworth
== END 2021-11-01 19:11 | disposition home health service (06) ==
LOC: ED 11:07 → AC 11:26
PROVIDERS: Emergency Medicine; Admitting Provider Internal Medicine; Emergency Provider Emergency Medicine; PCP Family Medicine; Referring Provider Emergency Medicine; Visit Provider Internal Medicine
DX: I63.89 Other cerebral infarction (principal); R42 Dizziness and giddiness; R29.701 NIHSS score 1; Z98.890 Other specified postprocedural states; Z20.822 Contact with and (suspected) exposure to COVID-19
CPT/HCPCS: 36415; 51798; 70450; 70496; 70498; 70548; 70553; 80048; 80053; 80061; 81001; 82550; 82570; 83036; 84300; 84484; 85025; 87635; 93005; 93306; 94760; 96361; 96372; 96374; 97112; 97116; 97163; 99285; C9803; G0378; A9579; J1650; J2405; Q9967

== ENCOUNTER → 2022-07-05 10:06 | Outpatient (CLI) | payer MEDICARE, BC, SELFPAY ==
[2021-10-31 13:57] VITALS: BMI 22.9
[2022-07-05 20:39] LABS: COVID19 - ORCAS (NP or Nasal) Negative (Negative)
== END ==
PROVIDERS: PCP Family Medicine; Visit Provider Family Medicine
DX: Z20.822 Contact with and (suspected) exposure to COVID-19 (principal); Z01.812 Encounter for preprocedural laboratory examination
CPT/HCPCS: C9803; U0003

== ENCOUNTER → 2023-02-04 08:37 | Outpatient (CLI) | payer MEDICARE, BC, SELFPAY ==
[2021-10-31 13:57] VITALS: BMI 22.9
[2023-02-04 10:06] LABS: Add Manual Diff / Slide Review NO; Basophils Absolute Auto 0 /uL (0-100); Basophils Percent Auto 0.3 % (0-2); Eosinophils Absolute Auto 100 /uL (0-450); Eosinophils Percent Auto 0.9 % (2-4); Hematocrit 39.4 % (41-53); Hemoglobin 13.8 g/dL (13.5-17.5); Lymphocytes Absolute Auto 1400 /uL (1100-4500); Lymphocytes Percent Auto 22.5 % (25-40); Mean Corpuscular HGB Conc 34.9 % (30-36); Mean Corpuscular Hemoglobin 30.5 PG (26-34); Mean Corpuscular Volume 87.4 fL (80-100); Monocytes Absolute Auto 500 /uL (0-900); Neutrophils Absolute Auto 4200 /uL (1500-7000); Neutrophils Percent Auto 68.3 % (50-75); Platelet Count 304 X10^3/uL (150-400); Red Blood Cell Count 4.51 X10^6/uL (4.5-5.9); Red Cell Distribution Width 13.4 % (11.6-14.8); White Blood Cell Count 6.2 X10^3/uL (4.5-11.0)
[2023-02-04 15:42] LABS: Alanine Aminotransferase 27 IU/L (<50); Albumin 3.9 g/dL (3.5-5.0); Albumin Globulin Ratio 1.3 (1.0-2.8); Alkaline Phosphatase 133 U/L (38-126); Aspartate Aminotransferase 29 IU/L (17-59); BUN Creatinine Ratio 23.5 (6-22); Bilirubin Total 0.2 mg/dL (0.2-1.3); Blood Urea Nitrogen 16 mg/dL (9-20); Calcium 9.2 mg/dL (8.4-10.2); Carbon Dioxide 31 mmol/L (22-32); Chloride 101 mmol/L (98-107); Estimated Glomerular Filt Rate > 60 mL/min (>60); Glucose 81 mg/dL (80-110); HEMOLYSIS < 15 (0-50); Potassium 4.6 mmol/L (3.4-5.1); Sodium 138 mmol/L (137-145); Total Protein 6.9 g/dL (6.3-8.2)
[2023-02-04 16:08] LABS: Prostate Specific Antigen Scrn 0.818 ng/mL (0.1-4.0)
[2023-02-05 08:44] LABS: Labcorp Hemoglobin (Hb) A1c 5.3 % (4.8-5.6)
== END ==
PROVIDERS: PCP Physician Assistant; Referring Provider Physician Assistant; Visit Provider Physician Assistant
DX: Z12.5 Encounter for screening for malignant neoplasm of prostate; M17.11 Unilateral primary osteoarthritis, right knee; R53.83 Other fatigue
CPT/HCPCS: 36415; 80053; 83036; 85025; G0103

== ENCOUNTER 2023-03-02 06:42 | Day surgery (SDC) | payer MEDICARE, BC, SELFPAY ==
[2021-10-31 13:57] VITALS: BMI 22.9
[2023-02-28 12:53] VITALS: BMI 22.3
[2023-03-02] VITALS (14 sets, daily range): BP systolic 124–151; BP diastolic 60–78; PULSE 68–98; RESP 12–18; TEMP 35.8–36.6; O2SAT 93–100; BMI 22.3; BMI 23.8
--- NOTE | 2023-03-02 06:00 | DI.RAD.S_ITS ---
PROCEDURE: XR KNEE RT 1TO2V INDICATIONS: TKA TECHNIQUE: 2 view(s) of the knee acquired. COMPARISON: [facility] [place], [place], XR KNEE 4+ VIEWS RIGHT, 01/25/2023, 13:11. FINDINGS: Bones: Patient is status post knee joint arthroplasty. Hardware components are in expected positions. Visualized bony structures are intact. Soft tissues: Overlying postoperative changes are noted. IMPRESSION: Normal postoperative examination. Dictated by: Noah Marques M.D. on 03/02/2023 at 10:36 Approved by: Noah Marques M.D. on 03/02/2023 at 10:36
[2023-03-02] MEDS: LACTATED RINGERS 1,000 ML 42 ML IV (07:30)
[2023-03-02] MEDS: ACETAMINOPHEN 325 MG TABLET 975 MG PO (07:31)
[2023-03-02] MEDS: CELECOXIB 200 MG CAPSULE PO (07:31)
[2023-03-02 07:50] LABS: COVID19 -Nasal RAPID Negative (Negative)
--- NOTE | 2023-03-02 08:43 | PM.PREOP ---
Pre-operative Note Interval Note History & Physical reviewed/Exam performed by Physician: Yes Changes to H&P: No
[2023-03-02] MEDS: CEFAZOLIN 2 GM/100 ML PREMIX 100 ML IV ×2 (09:25→17:24)
[2023-03-02] MEDS: TRANEXAMIC ACID 1,000 MG VIAL 2000 MG INJ ×2 (09:35→10:29)
[2023-03-02] MEDS: BUPIVACAINE LIPOSOME 266 MG/20 ML VIAL INJ (09:41)
[2023-03-02] MEDS: BUPIVACAINE 0.25% (PF) 60 ML, EPINEPHrine 0.3 MG INJ (09:42)
[2023-03-02] MEDS: MORPHINE 4 MG/ML INJ INJ (09:42)
--- NOTE | 2023-03-02 09:46 | SUR.OPER ---
Supine on padded OR bed. Pillow under head, arms secured on padded armboards <90 degree abduction. Safety belt across torso. Non-operative leg secured with tape over blanket over lower leg. Operative leg secured in DeMayo/Manuel/Nathe positioner. Foam padded brace at thigh of operative leg.
--- NOTE | 2023-03-02 10:56 | P.OP_ITS ---
Operative Date/Time/Diagnoses Date of procedure: 03/02/23 Time of procedure: 10:56 Pre-op diagnosis: Right knee osteoarthritis Post-op diagnosis: same Procedure & Clinicians Procedure: Right total knee replacement Same procedure as scheduled: Yes Indications: The patient has had progressively worsening right knee pain with radiographic changes consistent with arthritis. Non-operative management has failed and the patient has requested total knee replacement. The risks, benefits and alternatives to surgery were discussed with the patient prior to proceeding. Risks discussed included, but were not limited to, failure to relieve pain, stiffness, infection, nerve damage, deep venous thrombosis, pulmonary embolism, stroke, coma, heart attack, permanent paralysis and , as well as the potential need for eventual revision of the prosthetic. Surgeon: Mandeep Juarez Bale Stacker: Swetha Patino Click Yes if Unassisted: No Anesthesia Type: General, Spinal and Local Operative Notes Findings: Severe medial and moderate patellofemoral osteoarthritis Closure Type: primary Specimen(s): none sent Prosthetic devices, grafts, tissues, transplants, or devices: Implants used in this procedure were manufactured by the [employer] and [employer] and included the BCS II Journey total knee replacement with a size 8 cobalt chromium femur, 8 non porous tibial base plate, a 10 mm cross-linked polyethylene tibial insert, and a 38 mm oval Mitzi II patella. Applied: implant(s) Estimated Blood Loss (mL): 25 Blood products transfused: none Tourniquet time (min): 50 Procedure in detail: The patient was seen in the pre-operative area, where the patient identified the right knee as the operative site and this was marked with my initials. The patient received pre-operative antibiotics, and was taken to the operating room and placed on the operative table in the supine position. After satisfactory anesthesia, a 3d animator out was performed. The right leg was encircled with a tourniquet about the proximal thigh, and the leg was prepared from the toes to the tourniquet with ChloroPrep in the usual fashion and draped through sterile drapes. The leg was elevated and exsanguinated with Eschmark bandage and the tourniquet inflated to 250 mmHg pressure. The knee was approached through an approximately 18 cm incision centered over the patella and carried into the knee through a medial parapatellar arthrotomy. The anterior osteophytes and soft tissues were removed. The rotational landmarks of Dyer's line and the transepicondylar axis were marked on the femur with electrocautery, and intramedullary guide holes for the femur and tibia were created. The distal femoral cut was made in 6 degrees of valgus using the intr amedullary guide at the primary cut setting. The proximal tibial cut was then made using the intramedullary guide, taking 9 mm of bone off the less involved side. The extension gap was checked and the rotation of the femoral component confirmed with the gap balancing system. The anterior, posterior and chamfer cuts were then made. The posterior osteophytes and soft tissues were then removed. The posterior capsule was injected with part of a mixture of 60 ml 0.25% Marcaine mixed with 20 ml Exparel and 4 mg of morphine for post-operative pain control. The remainder of this mixture was injected into the capsule and subcutaneous tissues during cement curing. The tibia was prepared with the rotation set by an extra medullary guide. Trial tibial and femoral components were then placed and the intercondylar notch cut through the femoral trial. Range of motion was 0-140 degrees, with good stability throughout the range. The patella was then cut to accommodate the patellar prosthetic. There was no need for a lateral release. The trials were then removed, and the femoral hole plugged with a bone plug. The bone was prepared with pulsatile lavage, and dried with a sponge. Cement was applied and the final prosthetics placed. Excess cement was removed during and after cement curing. After confirming there was no extruded cement posteriorly, the final tibial insert was placed. The knee was copiously irrigated and the tourniquet deflated. Hemostasis was obtained. The capsule was closed with interrupted # 2 polyester suture. The subcutaneous layer was closed with 3-0 Vicryl, and the skin with a running 3-0 V-Lock suture and Dermabond. An Aquacel Ag dressing was applied and the patient was taken to recovery having tolerated the procedure well. The services of a skilled obstetric assistant were required during this procedure to provide positioning, exposure and retraction to protect vital structures. Without the services of Ms. Patino, the procedure could not have gone forward in a safe, expedient fashion. Complications: none Post-operative Condition: stable Disposition: PACU Plan for aftercare: The patient will be maintained on a standard total knee replacement protocol with weight bearing as tolerated. The patient will receive aspirin and sequential compression devices for DVT prophylaxis. The patient will be discharged home when safe for the home environment.
[2023-03-02] MEDS: OXYCODONE IR 5 MG TABLET PO ×2 (11:52→18:21)
[2023-03-02] MEDS: LACTATED RINGERS 1,000 ML 100 ML IV (11:53)
[2023-03-02] MEDS: ACETAMINOPHEN 325 MG TABLET 650 MG PO ×3 (11:53→21:06)
[2023-03-02] MEDS: IBUPROFEN 400 MG TABLET PO ×3 (11:53→21:06)
--- NOTE | 2023-03-02 17:17 | PT.IIE ---
Current Diagnoses Unilateral primary osteoarthritis, right knee (03/02/23) Pain in right knee (03/02/23) Surgery Performed Operation Date: 03/02/23 08:45 Actual Procedures p Total Knee Arthroplasty(Right) - Mandeep Juarez MD Surgical History (Last Updated 02/28/23 @ 13:09 by Charline López, RN) History of surgery (10/2021) History of tonsillectomy Hx of hernia repair Status post appendectomy Medical History (Last Updated 02/28/23 @ 13:17 by Charline López RN) CVA (cerebral vascular accident) (10/31/21) History of COVID-19 (2021) Right hip pain Skin cancer Physical Therapy Inpatient Evaluation/Re-Eval M1 PT/OT-IP Prior Functional Status Start: 03/02/23 17:05 Freq: NEEDED Status: Active Protocol: Document 03/02/23 17:05 ES (Rec: 03/02/23 17:17 ES [id number]) Medical Review Prior Functional Status Medical History Reviewed Yes Diet/Fluid Consistency Regular Communication WFL Mobility and Gait Indep, was walking 2 miles Activities of Daily Living and IADL's Indep Social History Household Members children,none Living Arrangements House Number of Floors (Floors) One Floor Number of Stairs To Enter/Railing? 1 Home Environment Standard Height Toilet,Tub/ Shower Home Equipment Front Wheel Walker,Straight Cane,Crutches,Tub Transfer Bench Employment Status Retired Additional Social History Comment Will be staying at his son's house for 2 weeks; son works part-time. M2 PT-IP Current Condition Start: 03/02/23 17:05 Freq: NEEDED Status: Active Protocol: Document 03/02/23 17:05 ES (Rec: 03/02/23 17:17 ES [id number]) Physical Therapy Current Condition Current Condition Evaluation Date 03/02/23 Treatment Diagnosis s/p R TKA Onset Date 03/02/23 M3 PT-IP Subjective Start: 03/02/23 17:05 Freq: NEEDED Status: Active Protocol: Document 03/02/23 17:05 ES (Rec: 03/02/23 17:17 ES [id number]) Subjective Physical Therapy Visit Type Type Initial Evaluation Visit Start Time 14:48 Visit Stop Time 15:48 Total Visit Minutes 60 Physical Therapy Visit Comments Patient Comments Patient alert in bed, agreeable to work with PT. Stated he has been going to outpatient PT prior to surgery . Therapy Pain Assessment Pain When Pain Assessed At Rest Pain Present Pain Present Pain Reported Location Right Knee Intensity 1 Scale Used Numeric (0 - 10) Pain Management Techniques Apply Cold,Re-positioning M4 PT-IP Mobility and Gait Start: 03/02/23 17:05 Freq: NEEDED Status: Active Protocol: Document 03/02/23 17:05 ES (Rec: 03/02/23 17:17 ES [id number]) PT-Bed Mobility Assessment Supine to Sit Supine to Sit Minimal Assistance,Head of Bed Elevated,Bedrails Sit to Supine Sit to Supine Minimal Assistance,Head of Bed Elevated Scooting Scooting to Edge of Bed Standby Assistance Scooting Up and Down in Bed Standby Assistance PT-Transfer Assessment Sit to and From Stand Sit to and from Stand Moderate Assistance,Use of Upper Extremities Equipment Transfer Assistive Device Gait Belt,Front Wheeled Walker Comments Mobility Comments Attempted sidestepping at EOB but unable to bear weight enough into RLE to take a step . Gait Assessment Comments Gait Comments Not able to support self on RLE to take step with LLE; became lightheaded and returned to supine. PT-Balance Assessment Sitting Balance and Reactions Static Sitting Balance Ability Good Dynamic Sitting Balance Ability Good Standing Balance and Reactions Static Standing Balance Ability Fair Dynamic Standing Balance Ability Poor Device Used FWW M5 PT-IP Objective Assessments Start: 03/02/23 17:05 Freq: NEEDED Status: Active Protocol: Document 03/02/23 17:05 ES (Rec: 03/02/23 17:17 ES [id number]) Orientation Orientation/Cognition Level of Alertness Alert Orientation Name,Age,Birthday,Month,Date, Year,Day of Week,Place, Situation Language Function Ability No Deficits Noted Safety Awareness Understands Safety Issues Memory Description No Deficits Noted Gross Range of Motion Upper Extremity ROM Assessment Within Functional Limits Lower Extremity ROM Assessment Right Impaired Impairments R knee and ankle limited Strength Upper Extremity Strength Assessment Within Functional Limits Lower Extremity Strength Assessment Right Impaired Hip Grossly 4-/5 Knee Grossly 3-/5 Ankle Grossly 4-/5 Comments Strength Comments Spinal anesthesia not completely worn off on RLE yet . Coordination Assessment Gross Coordination Gross Coordination WNL Sensation Assessment Sensation Gross Sensation Right LE Impaired Light Touch Impaired Sensation Description Numbness Comments Sensation Comments Effects of spinal anesthesia still present M6 PT-IP Treatment Start: 03/02/23 17:05 Freq: NEEDED Status: Active Protocol: Document 03/02/23 17:05 ES (Rec: 03/02/23 17:17 ES [id number]) Physical Therapy Treatment Exercises Exercises Ankle Pumps,Gluteal Sets,Quad Sets,Heel Slides,Straight Leg Raises,Short Arc Quads,Passive Knee Extension Hang,Seated Knee Flexion/Extension Knee ROM Measurement 95 degrees seated knee flexion Education Education Provided Precautions,Weight Bearing Status,Post-Op Packet,Safety M7 PT-IP Assessment and Plan Start: 03/02/23 17:05 Freq: NEEDED Status: Active Protocol: Document 03/02/23 17:05 ES (Rec: 03/02/23 17:17 ES [id number]) PT Summary Assessment and Plan Potential Rehabilitation Potential Good Status of Condition at Evaluation Stable Summary Impairments Pain,ROM,Strength,Balance, Sensation,Bed Mobility, Transfers,Gait,Activity Tolerance Assessment Summary Patient is a 78 year old male s/p L TKA who presents with impaired functional mobility due to the above problems. He was still reporting numbness in RLE and had strength deficits due to effects of spinal anesthesia still, so did not progress ambulation this visit. Patient was able to tolerate ex's with moderate pain; he demonstrated decreased R knee extension which apparently was present pre-surgery. Patient was educated on importance of working on knee extension during the day to address this post-op. Patient became lightheaded upon standing and had decreased stability on RLE so was returned to supine at end of treatment. Patient will benefit from further skilled therapy to increase safety and independence with mobility prior to d/c home. Goals Bed Mobility Goal Independent Transfer Goal Independent,Front Wheeled Walker Gait Goal Independent,Front Wheel Walker Gait Distance 150 Other Goals Patient will be able to ascend /descend 1 stair with FWW with CGA. Days to Meet Goals 3 Frequency of Treatment Frequency Of Treatment Twice a Day Treatment Plan Physical Therapy Treatment Plan Bed Mobility Training,Transfer Training,Gait Training, Therapeutic Exercise,Balance Retraining,Post Op Education, Discharge Planning,Hot or Cold Pack Other Recommendations and Next Treatment Progress gait, stairs. Review Focus HEP especially extension ex's. Weight Bearing Status Weight Bearing Status Weight Bear as Tolerated Recommendations To Nursing Amount of Assist Needed 1 Person Assist Discharge Recommendations PT Discharge Recommendations Home with Assistance, Outpatient PT Transportation Needs at Discharge Private Vehicle
[2023-03-02] MEDS: DOCUSATE 100 MG CAPSULE PO (21:06)
[2023-03-02] MEDS: ASPIRIN EC 81 MG TABLET PO (21:07)
[2023-03-03] MEDS: CEFAZOLIN 2 GM/100 ML PREMIX 100 ML IV (02:46)
[2023-03-03] MEDS: IBUPROFEN 400 MG TABLET PO ×3 (02:47→11:21)
[2023-03-03 05:18] LABS: Hematocrit 35.8 % (41-53); Hemoglobin 12.6 g/dL (13.5-17.5)
[2023-03-03] MEDS: ACETAMINOPHEN 325 MG TABLET 650 MG PO ×2 (06:29→11:20)
[2023-03-03] MEDS: DOCUSATE 100 MG CAPSULE PO (08:06)
[2023-03-03] MEDS: ASPIRIN EC 81 MG TABLET PO (08:06)
[2023-03-03] MEDS: IPRATROPIUM 0.06% NASAL 15 ML 1 SPRAY NASAL (08:07)
[2023-03-03 08:37] VITALS: BP 106/55; PULSE 64; RESP 17; TEMP 35.8; O2SAT 99
--- NOTE | 2023-03-03 09:00 | CM.DANOTE ---
Discharge Planning/Care Management CM Discharge Assessment Start: 03/03/23 08:40 Freq: Status: Active Protocol: Document 03/03/23 08:40 EFFIE (Rec: 03/03/23 08:59 EFFIE [id number]) Discharge Planning Assessment Assigned Bumper Straightener ONESIMO Zavala DPOA/Assigned Designee Name adam Morales (Veronica alexandre) Contact Information [phone] Advance Directives? No History Provided By Patient,Medical Record Prior Living Arrangements House Comment moving in with son Household Members children,none Type of transporation used prior to Drives own vehicle admit Independent with ADL's Yes Is patient alert and oriented? Yes Patient/Family Preference OP PT Therapy Barriers to Discharge No Comment Patient is a 78 yo M resident of [facility] s/p Total Knee Arthroplasty(Right) - Mandeep Juarez MD PCP Sania Almaraz [facility]/ out of state [facility] Patient has planned to discharge to his son's home for assist and eventually will be moving in with son. PT has cleared patient for this plan Of note, Patient's spouse w/in the last few years. Patient is indp at baseline and eager to return home w/son , outpatient PT No needs from this CM team identified. Will plan to follow in case any DC needs or concerns arise Discharge Plan Home Transportation Arrangement Patients son will help with transportation back to [place] will need priority boarding when medically stabel for DC. Referrals Initiated None needed
[2023-03-03] MEDS: polyethylene glycoL 3350 17 GM POWD.PACK PO (09:22)
[2023-03-03] MEDS: OXYCODONE IR 5 MG TABLET PO (11:21)
--- NOTE | 2023-03-03 11:29 | P.DS_ITS ---
History of Present Illness History of Present Illness Date Patient Seen: 03/03/23 Time Patient Seen: 07:15 Chief complaint: Right TKA 03/02 Narrative: Patient is resting comfortably in bed this morning. He states that he is doing well and pain is well controlled with medication. He states that he has worked with physical therapy and is looking forward to doing so again today. He plans to discharge to his son's house which has 1 step to enter. Complains that he has not had a bowel movement yet and is hoping he has one today. Discharge Providers Provider Discharge Date: 03/03/23 Primary care physician: Sania Cross PA-C Consults: 03/02/23 06:00 Consult to Anesthesiology Routine Comment: Consulting Provider: Anesthesiologist Reason for consultation: Regional block for post operative pain control 03/02/23 11:35 Consult to Discharge Planning Routine Comment: Consult to Physical Therapy Evaluate & Treat Comment: Physician Instructions: postop TKA protocol Discharge provider: Carmencita Berrios PA-C Summary Hospital Course Discharge Diagnosis: Status post right total knee arthroplasty Hospital Course: Operative Date/Time/Diagnoses Date of procedure: 03/02/23 Time of procedure: 10:56 Pre-op diagnosis: Right knee osteoarthritis Post-op diagnosis: same Procedure & Clinicians Procedure: Right total knee replacement Same procedure as scheduled: Yes Indications: The patient has had progressively worsening right knee pain with radiographic changes consistent with arthritis. Non-operative management has failed and the patient has requested total knee replacement. The risks, benefits and alternatives to surgery were discussed with the patient prior to proceeding. Risks discussed included, but were not limited to, failure to relieve pain, stiffness, infection, nerve damage, deep venous thrombosis, pulmonary embolism, stroke, coma, heart attack, permanent paralysis and , as well as the potent ial need for eventual revision of the prosthetic. Surgeon: Mandeep Juarez Office Rental Clerk: Swetha Patino Click Yes if Unassisted: No Anesthesia Type: General, Spinal and Local Operative Notes Findings: Severe medial and moderate patellofemoral osteoarthritis Closure Type: primary Specimen(s): none sent Prosthetic devices, grafts, tissues, transplants, or devices: Implants used in this procedure were manufactured by the [employer] and [employer] and included the BCS II Journey total knee replacement with a size 8 cobalt chromium femur, 8 non porous tibial base plate, a 10 mm cross-linked polyethylene tibial insert, and a 38 mm oval Mitzi II patella. Applied: implant(s) Estimated Blood Loss (mL): 25 Blood products transfused: none Tourniquet time (min): 50 Status at Discharge Cognitive/behavioral status at discharge: oriented Functional status at discharge: uses cane/walker Overall status at discharge: patient is progressing back to baseline Exam Vital Signs (past 8 hours): - 03/03/23 08:37 Temperature 96.5 F L Pulse Rate 64 Respiratory Rate 17 Blood Pressure 106/55 L Pulse Oximetry 99 Oxygen Flow Rate 0 Oxygen Delivery Method Room Air Oxygen Flow Rate 0 Objective Labs 03/03/23 04:49 Labs: Laboratory Results - last 24 hr 03/03/23 04:49 Hgb 12.6 L Hct 35.8 L PFSH Medical History CVA (cerebral vascular accident) (10/31/21) History of COVID-19 (2021) Right hip pain Skin cancer Surgical History History of surgery (10/2021) History of tonsillectomy Hx of hernia repair Status post appendectomy Social History household members: children and none Smoking Status: Former smoker alcohol intake: former Discharge Assessment & Plan Assessment and Plan Assessment: Patient is progressing as expected after right total knee arthroplasty. Pain has been well controlled with medication. He had some lingering effects from spinal anesthesia, but is now urinating on his own. Plan of Treatment: Plan to work with physical therapy today-practice managing at least 1 stair as patient has 1 stair to enter his son's home where he will be staying. If all goes well plan to discharge later this afternoon with clearance from physical therapy. Discharge Plan Discharge Plan Patient Disposition: Home Provider Discharge Comment: Discharge once safe and cleared by PT Discharge orders & Medications Discharge Orders: Discharge (Order); Ordered 03/03/23 Ordered By: Carmencita Berrios Prescriptions: New acetaminophen 325 mg Tablet 650 mg PO Q6H Qty: 120 0RF aspirin 81 mg Tablet,Delayed Release (Dr/Ec) 81 mg PO BID Qty: 84 0RF ibuprofen 400 mg Tablet 400 mg PO Q4H Qty: 120 0RF oxycodone 5 mg Tablet 5 mg PO Q4-6H PRN (Reason: Pain, Moderate (4-6)) Qty: 42 0RF Continued aspirin 81 mg Tablet,Delayed Release (Dr/Ec) 81 mg PO DAILY ipratropium bromide 21 mcg (0.03 %) spray,non-aerosol 1 spray INTRANASAL DAILY Refresh Optive 0.5-0.9 % Drops 2 drp OPHTHALMIC (EYE) BID vitamin D3-vit K1-vit MK4-MK7 50-500-1,500 mcg Capsule 1 cap PO DAILY Follow up/Referrals: Sania Cross PA-C [Primary Care Provider] - Mandeep Juarez MD [Physician] - As previously scheduled (Follow up with Dr Juarez on 03/15/2023 @ 2:00 pm at [facility] [facility] Diet/Activity/Treatments Diet: Diet as Tolerated Activity: Walk frequently! Cold/Heat Therapy: Ice to knee as needed for pain. Skin/Wound/Dressing Care Report to your healthcare provider any signs of infection, such as:: chills, fever, night sweats, unusual drainage and unusual redness Dressing: May remove MINA wrap and shower on 03/05/2023. Leave Aquacel dressing in place until follow up in office. No bathing or otherwise soaking incision. Call the office if the dressing becomes saturated inside. Visit Report/Discharge Packet Instructions: DI for Knee Replacement Stand Alone Forms: Patient Portal/API, Surgery Discharge Discharge Data Primary Care Provider: Sania Cross Attending Provider: Mandeep Juarez Quality VTE Deep Vein Thrombosis/Pulmonary Embolism Present on Admission: No
--- NOTE | 2023-03-03 11:41 | PT.IPTN ---
Current Diagnoses Unilateral primary osteoarthritis, right knee (03/02/23) Pain in right knee (03/02/23) Surgery Performed Operation Date: 03/02/23 08:45 Actual Procedures p Total Knee Arthroplasty(Right) - Mandeep Juarez MD Physical Therapy Treatment Note M2 PT-IP Current Condition Start: 03/02/23 17:05 Freq: NEEDED Status: Discharge Protocol: Document 03/02/23 17:05 ES (Rec: 03/02/23 17:17 ES [id number]) Physical Therapy Current Condition Current Condition Evaluation Date 03/02/23 Treatment Diagnosis s/p R TKA Onset Date 03/02/23 M3 PT-IP Subjective Start: 03/02/23 17:05 Freq: NEEDED Status: Discharge Protocol: Document 03/03/23 12:31 KS (Rec: 03/03/23 12:41 KS [id number]) Subjective Physical Therapy Visit Type Type Treatment Note Visit Start Time 11:16 Visit Stop Time 11:41 Total Visit Minutes 25 Number of PROFILER Visits 1 Physical Therapy Visit Comments Patient Comments Pt son present for caregiver training. M4 PT-IP Mobility and Gait Start: 03/02/23 17:05 Freq: NEEDED Status: Discharge Protocol: Document 03/03/23 12:31 KS (Rec: 03/03/23 12:41 KS [id number]) PT-Bed Mobility Assessment Supine to Sit Supine to Sit Independent Sit to Supine Sit to Supine Contact Guard Assistance,1 Person Assistance Scooting Scooting to Edge of Bed Independent Scooting Up and Down in Bed Independent PT-Transfer Assessment Sit to and From Stand Sit to and from Stand Contact Guard Assistance,1 Person Assistance,Use of Upper Extremities Equipment Transfer Assistive Device Gait Belt,Front Wheeled Walker Transfers Transfer Destination Bed Transfer Technique ambulated Transfer Ability Level of Assist Contact Guard Assistance,1 Person Assistance,Use of Upper Extremities Comments Mobility Comments Pt in bed upon arrival and son in room. Pt able to sup<>sit and scoot EOB independently. CGA for sit<>stand w/ FWW. Pt ambulated to bathroom CGA and used I and then completed platform step w/ Min A and FWW . Pts son was able to provide all necessary assistance. Pt returned to bed, left w/ son and all needs in reach. Gait Assessment Gait Gait Assistance Required: Contact Guard Assist,1 Person Assist Distance (Feet) 40 Assistive Devices Assistive Device Front Wheeled Walker Orthotic/Prosthetic Devices or Brace: No Gait Deviations General Gait Pattern Decreased Stride Length, Decreased Feet Clearance, Lateral Trunk Lean Factors Limiting Gait Function Factors Limiting Gait Function Decreased Activity Tolerance, Decreased Strength,Limited Range of Motion,Pain,Poor Balance Comments Gait Comments Ambulated 40 ft w FWW CGA, son able to assist. Stair Climbing Assessment Evaluation Level of Assist On Stairs Minimal Assistance,1 Person Assistance Devices Stair Climbing Assistive Devices Front Wheel Walker Technique/Endurance Stair Climbing Direction Ascend and Descend Stair Climbing Technique Step to Step Number of Steps Climbed 1 Stair Climbing Set # Repetitions (reps) 1 Comments Stair Climbing Comments Pt son provided Min A for pt ascend/descend platform step w / FWW and cues for sequencing. Both feel safe to complete at home. PT-Balance Assessment Sitting Balance and Reactions Static Sitting Balance Ability Good Dynamic Sitting Balance Ability Good Standing Balance and Reactions Static Standing Balance Ability Good Dynamic Standing Balance Ability Fair Device Used FWW M5 PT-IP Objective Assessments Start: 03/02/23 17:05 Freq: NEEDED Status: Discharge Protocol: Document 03/02/23 17:05 ES (Rec: 03/02/23 17:17 ES [id number]) Orientation Orientation/Cognition Level of Alertness Alert Orientation Name,Age,Birthday,Month,Date, Year,Day of Week,Place, Situation Language Function Ability No Deficits Noted Safety Awareness Understands Safety Issues Memory Description No Deficits Noted Gross Range of Motion Upper Extremity ROM Assessment Within Functional Limits Lower Extremity ROM Assessment Right Impaired Impairments R knee and ankle limited Strength Upper Extremity Strength Assessment Within Functional Limits Lower Extremity Strength Assessment Right Impaired Hip Grossly 4-/5 Knee Grossly 3-/5 Ankle Grossly 4-/5 Comments Strength Comments Spinal anesthesia not completely worn off on RLE yet . Coordination Assessment Gross Coordination Gross Coordination WNL Sensation Assessment Sensation Gross Sensation Right LE Impaired Light Touch Impaired Sensation Description Numbness Comments Sensation Comments Effects of spinal anesthesia still present M6 PT-IP Treatment Start: 03/02/23 17:05 Freq: NEEDED Status: Discharge Protocol: Document 03/03/23 12:31 KS (Rec: 03/03/23 12:41 KS [id number]) Physical Therapy Treatment Education Education Provided Precautions,Weight Bearing Status,Post-Op Packet,Safety M7 PT-IP Assessment and Plan Start: 03/02/23 17:05 Freq: NEEDED Status: Discharge Protocol: Document 03/03/23 12:31 KS (Rec: 03/03/23 12:41 KS [id number]) PT Summary Assessment and Plan Potential Rehabilitation Potential Good Summary Impairments Pain,ROM,Strength,Balance, Sensation,Bed Mobility, Transfers,Gait,Activity Tolerance Progress Towards Goals Progressing Toward Goals Assessment Summary Pt able to perform bed mobility independently, CGAfor sit<>stand, Min A for stairs. Ambulated ~40 ft w/ FWW and completed platform step. Son was able to provide all assistance. Pt and son feel safe to go home. Pt will benefit from OPPT. Goals Bed Mobility Goal Independent Transfer Goal Independent,Front Wheeled Walker Gait Goal Independent,Front Wheel Walker Gait Distance 150 Other Goals Patient will be able to ascend /descend 1 stair with FWW with CGA. Days to Meet Goals 3 Frequency of Treatment Frequency Of Treatment Twice a Day Treatment Plan Physical Therapy Treatment Plan Bed Mobility Training,Transfer Training,Gait Training, Therapeutic Exercise,Balance Retraining,Post Op Education, Discharge Planning,Hot or Cold Pack Other Recommendations and Next Treatment Progress gait, stairs. Review Focus HEP especially extension ex's. Weight Bearing Status Weight Bearing Status Weight Bear as Tolerated Recommendations To Nursing Amount of Assist Needed 1 Person Assist Discharge Recommendations PT Discharge Recommendations Home with Assistance, Outpatient PT Transportation Needs at Discharge Private Vehicle
== END 2023-03-03 12:14 | disposition home or self-care (01) ==
LOC: OR 06:43 → AC 06:43
PROVIDERS: PCP Physician Assistant; Referring Provider Family Medicine; Visit Provider Orthopaedic Surgery
PROC: 0SRC0JZ Replacement of Right Knee Joint with Synthetic Substitute, Open Approach (ICD-10-PCS; CPT 27447; principal; 2023-03-02 08:45)
DX: M17.11 Unilateral primary osteoarthritis, right knee (principal)
CPT/HCPCS: 27447; 36415; 73560; 82962; 85014; 85018; 87635; 97116; 97161; 97530; C1776; C9803; C9290; J0171; J0690; J1100; J2250; J2270; J2274; J2405; J2704; J3010

== ENCOUNTER → 2023-03-30 10:53 | Outpatient (CLI) | payer MEDICARE, BC, SELFPAY ==
[2023-03-02 11:42] VITALS: BMI 23.8
[2023-03-30 20:16] LABS: Add Manual Diff / Slide Review NO; Basophils Absolute Auto 0 /uL (0-100); Basophils Percent Auto 0.5 % (0-2); Eosinophils Absolute Auto 100 /uL (0-450); Eosinophils Percent Auto 1.4 % (2-4); Hematocrit 35.1 % (41-53); Hemoglobin 12.2 g/dL (13.5-17.5); Lymphocytes Absolute Auto 1400 /uL (1100-4500); Lymphocytes Percent Auto 22.9 % (25-40); Mean Corpuscular HGB Conc 34.7 % (30-36); Mean Corpuscular Hemoglobin 31.3 PG (26-34); Mean Corpuscular Volume 90.2 fL (80-100); Monocytes Absolute Auto 400 /uL (0-900); Monocytes Percent Auto 6.4 % (3-14); Neutrophils Absolute Auto 4200 /uL (1500-7000); Neutrophils Percent Auto 68.8 % (50-75); Platelet Count 277 X10^3/uL (150-400); Red Blood Cell Count 3.89 X10^6/uL (4.5-5.9); Red Cell Distribution Width 15.2 % (11.6-14.8); White Blood Cell Count 6.2 X10^3/uL (4.5-11.0)
[2023-03-30 20:22] LABS: Alanine Aminotransferase 18 IU/L (<50); Albumin 4.1 g/dL (3.5-5.0); Albumin Globulin Ratio 1.5 (1.0-2.8); Alkaline Phosphatase 112 U/L (38-126); Aspartate Aminotransferase 23 IU/L (17-59); BUN Creatinine Ratio 19.6 (6-22); Bilirubin Total 0.4 mg/dL (0.2-1.3); Blood Urea Nitrogen 18 mg/dL (9-20); Calcium 9.2 mg/dL (8.4-10.2); Carbon Dioxide 30 mmol/L (22-32); Chloride 103 mmol/L (98-107); Cholesterol 201 mg/dL (140-199); Estimated Glomerular Filt Rate > 60 mL/min (>60); Gamma Glutamyl Transpeptidase 23 U/L (15-73); Globulin 2.8 g/dL (1.7-4.1); Glucose 100 mg/dL (80-110); HDL Cholesterol 45 mg/dL (40-60); HEMOLYSIS < 15 (0-50); LDL Cholesterol Calculated 130 mg/dL (<100); Potassium 4.8 mmol/L (3.4-5.1); Sodium 139 mmol/L (137-145); Total Protein 6.9 g/dL (6.3-8.2); Triglycerides 128 mg/dL (35-150)
== END ==
PROVIDERS: PCP Physician Assistant; Visit Provider Physician Assistant
DX: R53.83 Other fatigue (principal); G45.9 Transient cerebral ischemic attack, unspecified; R74.8 Abnormal levels of other serum enzymes; D64.9 Anemia, unspecified
CPT/HCPCS: 80053; 80061; 82977; 85025

== ENCOUNTER 2023-04-04 13:10 | Observation (INO) | payer MEDICARE, BC, SELFPAY ==
[2023-03-02 11:42] VITALS: BMI 23.8
[2023-04-04] VITALS (16 sets, daily range): BP systolic 119–168; BP diastolic 63–80; PULSE 69–95; RESP 11–31; TEMP 36.2–36.6; O2SAT 94–100; BMI 23.1; BMI 22.6
--- NOTE | 2023-04-04 13:15 | DI.RAD.S_ITS ---
PROCEDURE: XR CHEST 1V INDICATIONS: suspected sepsis TECHNIQUE: One view of the chest was acquired. COMPARISON: [facility] ([place]), CR, XR CHEST 2V, 01/19/2023, 14:27. FINDINGS: Surgical changes and devices: None. Lungs and pleura: Lungs are clear. No pleural effusions or pneumothorax. Mediastinum: Mediastinal contours appear normal. Heart size is normal. Bones and chest wall: No suspicious bony lesions. Overlying soft tissues appear unremarkable. IMPRESSION: No acute cardiopulmonary disease. Dictated by: Samantha Sanchez M.D. on 04/04/2023 at 13:27 Approved by: Samantha Sanchez M.D. on 04/04/2023 at 13:27
--- NOTE | 2023-04-04 13:16 | DI.CT.S_ITS ---
PROCEDURE: CT HEAD/BRAIN WO CON INDICATIONS: dizzy. LNW 04/03 TECHNIQUE: Noncontrast 4.5 mm thick angled axial sections acquired from the foramen magnum to the vertex, with coronal and sagittal reformats. For radiation dose reduction, the following was used: automated exposure control, adjustment of mA and/or kV according to patient size. COMPARISON: None. FINDINGS: Image quality: Excellent. CSF spaces: Basal cisterns are patent. No extra-axial fluid collections. The ventricles are symmetric in size and shape. Brain: No intracranial bleeds or masses. There is cerebral volume loss for age, with resultant ventricular and sulcal prominence. Cortical defect of remote right inferomedial cerebellar infarct. There are periventricular and deep white matter chronic small vessel ischemic changes. There is intracranial internal carotid artery atherosclerosis. Skull and face: Calvarium and visualized facial bones appear intact, without suspicious lesions. Sinuses: Visualized sinuses and mastoids are clear. IMPRESSION: 1. No CT evidence of acute intracranial process. 2. Cortical loss of remote right inferior medial cerebellar infarct. Dictated by: Samantha Sanchez M.D. on 04/04/2023 at 13:11 Approved by: Samantha Sanchez M.D. on 04/04/2023 at 13:26
[2023-04-04 13:29] LABS: Add Manual Diff / Slide Review NO; Basophils Absolute Auto 0 /uL (0-100); Basophils Percent Auto 0.5 % (0-2); Eosinophils Absolute Auto 100 /uL (0-450); Eosinophils Percent Auto 2.3 % (2-4); Hematocrit 32.3 % (41-53); Hemoglobin 11.4 g/dL (13.5-17.5); Lymphocytes Absolute Auto 1000 /uL (1100-4500); Lymphocytes Percent Auto 19.8 % (25-40); Mean Corpuscular HGB Conc 35.2 % (30-36); Mean Corpuscular Hemoglobin 31.9 PG (26-34); Mean Corpuscular Volume 90.8 fL (80-100); Monocytes Absolute Auto 400 /uL (0-900); Monocytes Percent Auto 7.4 % (3-14); Neutrophils Absolute Auto 3600 /uL (1500-7000); Platelet Count 240 X10^3/uL (150-400); Red Blood Cell Count 3.56 X10^6/uL (4.5-5.9); Red Cell Distribution Width 14.9 % (11.6-14.8); White Blood Cell Count 5.2 X10^3/uL (4.5-11.0)
--- NOTE | 2023-04-04 13:29 | DI.CT.S_ITS ---
PROCEDURE: CT ANGIO HEAD AND NECK INDICATIONS: dizzy, last known well 2199 TECHNIQUE: After the administration of intravenous contrast, 1 mm thick sections acquired from the aortic arch through the [place] of [place]. Post-contrast 4.5 mm thick sections then re-acquired from the foramen magnum to the vertex. 3-dimensional [id number] (MIP) and/or volume rendering reformats were acquired of the central intracranial vasculature and neck separately. For radiation dose reduction, the following was used: automated exposure control, adjustment of mA and/or kV according to patient size. COMPARISON: None. FINDINGS: Image quality: Excellent. BRAIN: CSF spaces: Ventricles are normal in size and shape. Basal cisterns are patent. No extra-axial fluid collections. Brain: No midline shift. No intracranial bleeds or masses. [place]-white matter interface appears intact. Skull and face: Calvarium and facial bones appear intact, without suspicious lesions. Orbits appear normal. Sinuses: Sinuses and mastoids are clear. HEAD CT ANGIOGRAPHY: Anterior circulation: Intracranial internal carotid arteries are normal in size and flow. The flow within the paired anterior cerebral arteries is normal and symmetric. The flow within the middle cerebral arteries is normal and symmetric. The anterior communicating artery is seen. No aneurysms are seen. Posterior circulation: The right vertebral artery is dominant at the foramina magnum.. The left posterior communicating artery gives rise to the left posterior cerebral artery. Cerebellar arteries appear patent bilaterally. Visualized portions of the vertebral arteries demonstrate normal caliber, and join to form a normal appearing basilar artery. Flow within the posterior cerebral arteries is normal and symmetric. No aneurysms are seen. NECK CT ANGIOGRAPHY: Carotid system: The great vessels demonstrate a conventional anatomy as they arise from the aortic arch. The origins of the common carotid arteries appear patent. The common carotid arteries demonstrate normal caliber and courses. Scattered atherosclerotic calcification at both carotid bulbs and ICA origins without hemodynamically significant stenosis. The internal carotid arteries demonstrate normal calibers and courses. Posterior circulation: There is occlusion or severe narrowing of the right vertebral artery at its origin. There is trace flow reconstituted at the C6 level, and recurrent occlusion at C5. There is intermittent severe narrowing until the C1 ring. The left vertebral artery is widely patent to the level of the foramen magnum where it becomes diffusely diminutive. Soft tissues: Visualized neck soft tissues demonstrate no suspicious abnormalities. Bones: No suspicious bony lesions. There are severe degenerative changes at the C1-2 atlantal dental interval. Visualized cervical spine appears normally aligned. IMPRESSION: 1. No mass abnormal enhancement in the brain parenchyma postcontrast. 2. 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 This may be acute as this was not mentioned on prior angiographic studies. Images are not available for direct comparison. Any quantitative measurements of stenosis were performed using NASCET criteria. Dictated by: Samantha Sanchez M.D. on 04/04/2023 at 14:04 Approved by: Samantha Sanchez M.D. on 04/04/2023 at 14:05
[2023-04-04 13:35] LABS: INR 1.1 (0.9-1.3); Prothrombin Time 12.9 SECONDS (10.1-12.7)
[2023-04-04 13:38] LABS: PTT Partial Thromboplastin Tim 27 SECONDS (26-36)
[2023-04-04 13:39] LABS: Lactate (Lactic Acid) 1.9 mmol/L (0.7-2.1)
[2023-04-04 13:41] LABS: Alanine Aminotransferase 17 IU/L (<50); Albumin 3.6 g/dL (3.5-5.0); Albumin Globulin Ratio 1.3 (1.0-2.8); Alkaline Phosphatase 100 U/L (38-126); Aspartate Aminotransferase 22 IU/L (17-59); BUN Creatinine Ratio 19.7 (6-22); Bilirubin Total 0.4 mg/dL (0.2-1.3); Blood Urea Nitrogen 14 mg/dL (9-20); Calcium 8.7 mg/dL (8.4-10.2); Carbon Dioxide 29 mmol/L (22-32); Chloride 106 mmol/L (98-107); Creatine Kinase 46 U/L (55-170); Estimated Glomerular Filt Rate > 60 mL/min (>60); Globulin 2.8 g/dL (1.7-4.1); Glucose 116 mg/dL (80-110); HEMOLYSIS < 15 (0-50); Lipase 29 U/L (23-300); Potassium 4.4 mmol/L (3.4-5.1); Sodium 138 mmol/L (137-145); Total Protein 6.4 g/dL (6.3-8.2)
[2023-04-04 13:52] LABS: Troponin I < 0.012 ng/mL (0.01-0.034)
[2023-04-04 13:57] LABS: Procalcitonin < 0.03 ng/mL (<0.5)
[2023-04-04] MEDS: SODIUM CHLORIDE 0.9% 1,000 ML 1000 ML IV (14:20)
--- NOTE | 2023-04-04 15:42 | ED_ITS ---
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 Patient presents with last known normal at 10:00 p.m. last night on 04/03/2023. Patient states he went to bed and when he woke up this morning felt dizzy or like he is off-balance or that he has a lack of stability. He describes it as vertigo. He states this is very similar to when he had a stroke in 2020 on [facility] [place]. He denies headache, no vision changes, no numbness, tingling or weakness, no facial droop or difficulties with speech. Had some nausea but no vomiting. He states it is worse when he tries to ambulate if he is lying flat he does not have symptoms. Quick movement of his head does not seem to make a big change when seated. Patient denies any chest pain or shortness of breath. No changes to bowel movements, no changes with urination. He does have a catheter in place after developing urinary retention suspected from recent narcotic use for knee surgery a month ago. Patient states he is had some persistent swelling in his leg but not worsening. He denies fevers, chills cold cough or congestion. No tinnitus. Patient states he continues on aspirin 81 mg daily he is supposed to be on a statin but stopped it due to side effects. He states his last LDL was 150. He has not had any cardiac stents. He is had knee surgery, appendectomy, left hernia repair in a bone removed from his 5th toe. States he does not tolerate narcotics well secondary to side effects. Quit smoking in 1987, quit alcohol in 1984, no illicit. Gertrude Cross is his primary care on [facility]. Related Data Home Medications Medication Instructions Recorded Confirmed carboxymethylcellulose 0.5 2 drp ophthalmic (eye) BID 03/02/23 03/08/23 %-glycerin 0.9 % eye drops (Refresh Optive) ipratropium bromide 21 mcg (0.03 1 spray intranasal DAILY 03/02/23 03/08/23 %) nasal spray ibuprofen 400 mg tablet 800 mg PO Q8H PRN Pain (Scale 04/04/23 04/04/23 Score 4-6) Previous Rx's Medication Instructions Recorded acetaminophen 325 mg tablet 650 mg PO Q6H #120 tabs 03/03/23 aspirin 81 mg tablet,delayed 81 mg PO BID #84 tabs 03/03/23 release tamsulosin 0.4 mg capsule 0.4 mg PO BEDTIME #30 caps 03/07/23 Allergies Allergy/AdvReac Type Severity Reaction Status Date / Time oxycodone AdvReac Mild Irritable Verified 04/04/23 13:37 Rtqucmn-KCG-NxL Reductase AdvReac Mild Muscle Pain Verified 04/04/23 13:37 Inhibitor Review of Systems Review of Systems ROS Unobtainable: All systems reviewed & are unremarkable except as noted in HPI and below Patient History Medical History CVA (cerebral vascular accident) (10/31/21) History of COVID-19 (2021) Precancerous skin lesion Right hip pain Skin cancer Surgical History History of surgery (10/2021) History of tonsillectomy Hx of hernia repair Status post appendectomy Social History household members: children and none Smoking Status: Former smoker alcohol intake: former Smoking Status: Former smoker alcohol intake frequency: other Substance Use Type: does not use Exam Narrative Exam Narrative: GEN: well nourished, well appearing male, alert and oriented x 3, patient appears to be in mild distress. HEENT: Atraumatic, pupils are equal round reactive to light, extraocular movements are intact, very mild nystagmus horizontal, no vertical appreciated. Nares are clear, TMs are clear with no fluid, there is no conjunctival pallor. Throat is clear without any exudates, erythema, tonsillar enlargement or uvular deviation HEART: Regular rate and rhythm without murmur, clicks, rubs. pulses are equal in upper and lower extremities LUNGS:Lungs clear to auscultation, no wheezes, rales, crackles, chest moves symmetrically ABD:bowel sounds normal, soft, non-tender, no guarding, rebound, rigidity, no masses noted, no hepatosplenomegaly MSCL: Non-tender, no muscle atrophy, muscles strength 5/5 upper and lower extremities, full range of motion, normal gait NEURO:CN 2-12 intact, sensation normal, reflexes 2/4 upper and lower extremities. finger nose finger test normal, heel graf test normal, romberg normal SKIN: Healed incision in right anterior knee. Patient does have some swelling of left compared to right extremity which patient states has been present all month. No warmth or erythema appreciated incision appears to be healing appropriately. Initial Vital Signs Initial Vital Signs: Vital Signs Temperature 97.6 F 04/04/23 13:10 Pulse Rate 73 04/04/23 13:10 Respiratory Rate 20 04/04/23 13:10 Blood Pressure 162/74 H 04/04/23 13:10 Pulse Oximetry 98 04/04/23 13:10 Oxygen Delivery Method Room Air 04/04/23 13:10 Scores NIH Stroke Scale Level of Conciousness: Alert, keenly responsive Ask month/age: Answers both questions correctly. Open/close eyes, close hand: Performs both tasks correctly Best gaze horizontal: Normal Visual arnold: No visual loss Facial palsy: Normal symetrical movement Left arm drift: No drift for full 10 sec Right arm drift: No drift for full 10 sec Left leg drift: No drift for full 5 sec Right leg drift: No drift for full 5 sec Limb ataxia: Absent Sensory on face/arms/legs: Normal, no sensory loss Best language: No aphasia, normal Dysarthria: Normal Extinction or inattention: No abnormality Total NIH Stroke scale score: 0 Course Orders Ordered: ED Orders 04/04/23 13:15 XR chest 1V Stat EKG-12 Lead Stat 04/04/23 13:16 CT head/brain wo con Stat 04/04/23 13:18 Complete Blood Count AUTO DIFF Stat Comprehensive Metabolic Panel Stat Lactate (Lactic Acid) Stat Lipase Stat PTT Partial Thromboplastin Howard Stat Procalcitonin Stat Prothrombin Time INR Stat Troponin & CK Cardiac Panel Stat 04/04/23 13:29 CT angio head and neck Stat 04/04/23 15:22 Urine Culture Stat Urine Microscopic Stat 04/04/23 16:29 MR head/brain wo con Stat 04/04/23 17:10 Blood Culture Stat Aspirin (Aspirin Ec 81 Mg Tablet) 81 mg PO DAILY [facility] Atorvastatin Calcium (Atorvastatin 20 Mg Tablet) 40 mg PO BEDTIME [facility] Clopidogrel Bisulfate (Clopidogrel 75 Mg Tablet) 75 mg PO DAILY [facility] Enoxaparin Sodium (Enoxaparin 40 Mg/0.4 Ml Syringe) 40 mg SUBCUT DAILY [facility] Meclizine HCl (Meclizine Hcl 12.5 Mg Tablet) 25 mg PO TID PRN PRN Reason: Vertigo Ondansetron HCl (Ondansetron 4 Mg/2 Ml Inj) 4 mg IV Q8HR PRN PRN Reason: Nausea And Vomiting Tamsulosin HCl (Tamsulosin 0.4 Mg Capsule) 0.4 mg PO BEDTIME MONSTER Discontinued Medications Aspirin (Aspirin 81 Mg Chew Tab) 324 mg PO NOW ONE Stop: 04/04/23 16:32 Last Admin: 04/04/23 17:03 Dose: 324 mg Documented By: RB Atorvastatin Calcium (Atorvastatin 20 Mg Tablet) 80 mg PO BEDTIME [facility]STER Clopidogrel Bisulfate (Clopidogrel 75 Mg Tablet) 300 mg PO NOW ONE Stop: 04/04/23 16:37 Last Admin: 04/04/23 17:03 Dose: 300 mg Documented By: RIA Sodium Chloride (Normal Saline 0.9%) 1,000 mls @ 1,000 mls/hr IV BOLUS ONE Stop: 04/04/23 14:14 Last Infusion: 04/04/23 15:28 Dose: 0 mls/hr Documented By: Admin: 04/04/23 14:20 Dose: 1,000 mls/hr Documented By: RIA Ondansetron HCl (Ondansetron 4 Mg/2 Ml Inj) 4 mg IV NOW PRN PRN Reason: Nausea And Vomiting Ondansetron HCl (Ondansetron 4 Mg Odt) 4 mg SL NOW PRN PRN Reason: Nausea And Vomiting Vital Signs Vital signs: Vital Signs - 8 hr 04/04/23 13:22 04/04/23 13:10 04/04/23 13:48 Temperature 97.6 F Pulse Rate 72 73 75 Respiratory Rate 17 20 11 L Blood Pressure 162/74 H Pulse Oximetry 98 94 Oxygen Delivery Method Room Air 04/04/23 14:00 04/04/23 14:18 04/04/23 14:18 Temperature Pulse Rate 71 81 Respiratory Rate 16 31 H Blood Pressure 165/78 H Pulse Oximetry 100 99 Oxygen Delivery Method 04/04/23 14:30 04/04/23 14:30 04/04/23 15:00 Temperature Pulse Rate 81 Respiratory Rate 15 Blood Pressure 168/77 H 152/63 H Pulse Oximetry 98 Oxygen Delivery Method Room Air 04/04/23 15:00 04/04/23 15:30 04/04/23 15:31 Temperature Pulse Rate 81 82 78 Respiratory Rate 14 23 Blood Pressure Pulse Oximetry 100 97 96 Oxygen Delivery Method 04/04/23 15:31 04/04/23 15:46 04/04/23 15:46 Temperature Pulse Rate 78 Respiratory Rate Blood Pressure 138/63 133/74 Pulse Oximetry 99 Oxygen Delivery Method 04/04/23 16:00 04/04/23 16:00 04/04/23 16:30 Temperature Pulse Rate 73 Respiratory Rate 20 Blood Pressure 150/80 H 143/72 H Pulse Oximetry 97 Oxygen Delivery Method 04/04/23 16:30 Temperature Pulse Rate 69 Respiratory Rate 15 Blood Pressure Pulse Oximetry 99 Oxygen Delivery Method MDM - Dizziness Lab Data 04/04/23 13:18 04/04/23 13:18 Labs: Lab Results 04/04/23 04/04/23 04/04/23 Range/Units 13:18 13:18 13:18 WBC 5.2 (4.5-11.0) X10^3/uL RBC 3.56 L (4.5-5.9) X10^6/uL Hgb 11.4 L (13.5-17.5) g/dL Hct 32.3 L (41-53) % MCV 90.8 (80-100) fL MCH 31.9 (26-34) PG MCHC 35.2 (30-36) % RDW 14.9 H (11.6-14.8) % Plt Count 240 (150-400) X10^3/uL Neut % (Auto) 70.0 (50-75) % Lymph % (Auto) 19.8 L (25-40) % [place] % (Auto) 7.4 (3-14) % Eos % (Auto) 2.3 (2-4) % Baso % (Auto) 0.5 (0-2) % Neut # (Auto) 3600 (5228-4432) /uL Lymph # (Auto) 1000 L (3888-6545) /uL [place] # (Auto) 400 (0-900) /uL Eos # (Auto) 100 (0-450) /uL Baso # (Auto) 0 (0-100) /uL PT 12.9 H (10.1-12.7) SECONDS INR 1.1 (0.9-1.3) APTT 27 (26-36) SECONDS Sodium 138 (137-145) mmol/L Potassium 4.4 (3.4-5.1) mmol/L Chloride 106 (98-107) mmol/L Carbon Dioxide 29 (22-32) mmol/L BUN 14 (9-20) mg/dL Creatinine 0.71 (0.66-1.25) mg/dL Estimated GFR > 60 (>60) mL/min BUN/Creatinine Ratio 19.7 (6-22) Glucose 116 H (80-110) mg/dL Lactate (0.7-2.1) mmol/L Calcium 8.7 (8.4-10.2) mg/dL Total Bilirubin 0.4 (0.2-1.3) mg/dL AST 22 (17-59) IU/L ALT 17 (<50) IU/L Alkaline Phosphatase 100 (38-126) U/L Total Creatine Kinase 46 L (55-170) U/L CK-MB (CK-2) TNP CK-MB (CK-2) Rel Index TNP Troponin I < 0.012 (0.01-0.034) ng/mL Total Protein 6.4 (6.3-8.2) g/dL Albumin 3.6 (3.5-5.0) g/dL Globulin 2.8 (1.7-4.1) g/dL Albumin/Globulin Ratio 1.3 (1.0-2.8) Lipase 29 (23-300) U/L Procalcitonin < 0.03 (<0.5) ng/mL Urine RBC (0-5/HPF) Urine WBC (0-5/HPF) Urine Bacteria (None) Urine Yeast (None) Ur Culture Indicated? 04/04/23 04/04/23 Range/Units 13:18 15:22 WBC (4.5-11.0) X10^3/uL RBC (4.5-5.9) X10^6/uL Hgb (13.5-17.5) g/dL Hct (41-53) % MCV (80-100) fL MCH (26-34) PG MCHC (30-36) % RDW (11.6-14.8) % Plt Count (150-400) X10^3/uL Neut % (Auto) (50-75) % Lymph % (Auto) (25-40) % [place] % (Auto) (3-14) % Eos % (Auto) (2-4) % Baso % (Auto) (0-2) % Neut # (Auto) (0718-2515) /uL Lymph # (Auto) (7867-5676) /uL [place] # (Auto) (0-900) /uL Eos # (Auto) (0-450) /uL Baso # (Auto) (0-100) /uL PT (10.1-12.7) SECONDS INR (0.9-1.3) APTT (26-36) SECONDS Sodium (137-145) mmol/L Potassium (3.4-5.1) mmol/L Chloride (98-107) mmol/L Carbon Dioxide (22-32) mmol/L BUN (9-20) mg/dL Creatinine (0.66-1.25) mg/dL Estimated GFR (>60) mL/min BUN/Creatinine Ratio (6-22) Glucose (80-110) mg/dL Lactate 1.9 (0.7-2.1) mmol/L Calcium (8.4-10.2) mg/dL Total Bilirubin (0.2-1.3) mg/dL AST (17-59) IU/L ALT (<50) IU/L Alkaline Phosphatase (38-126) U/L Total Creatine Kinase (55-170) U/L CK-MB (CK-2) CK-MB (CK-2) Rel Index Troponin I (0.01-0.034) ng/mL Total Protein (6.3-8.2) g/dL Albumin (3.5-5.0) g/dL Globulin (1.7-4.1) g/dL Albumin/Globulin Ratio (1.0-2.8) Lipase (23-300) U/L Procalcitonin (<0.5) ng/mL Urine RBC None seen (0-5/HPF) Urine WBC None seen (0-5/HPF) Urine Bacteria None seen (None) Urine Yeast 10-30/hpf H (None) Ur Culture Indicated? Specimen cultured Urine Dip Bedside Urine Glucose Negative Bedside Urine Bilirubin - Negative Bedside Urine Ketone - Negative Urine Specific Boyd 1.010 Bedside Urine Occult Blood + Bedside Urine pH 8.0 Bedside Urine Protein - Negative Bedside Urine Urobilinogen - Negative Bedside Urine Nitrite - Negative Bedside Urine Leukocytes +/- 15 Esterase Imaging Data CTA - brain/neck: Radiologist's Impression: Close Head/Neck CTA (Signed) Samantha Sanchez - 04/04/[address] (Signed) Samantha Sanchez - 04/04/23 Chest X-Ray (Signed) Samantha Sanchez - 04/04/23 Bladder Scan 03/02/23 Knee X-Ray (Signed) Noah Marques - 03/02/23 Outside EKG 01/27/23 EKG Rpt. 01/27/23 Chest X-Ray (Signed) Adan Nguyen - 01/19/23 Echocardiogram Ultrasound (Signed) Esther Su - 11/01/21 Brain MRI (Signed) Jomar Lobo - 11/01/21 Telemetry Strips 10/31/21 Head/Neck CTA (Signed) Jp Bowman - 10/31/21 EKG Rpt. 10/31/[address] (Signed) Jomar Lobo - 10/31/21 Outside EKG 10/08/21 Shoulder X-Ray (Signed) Malachi Lama - 04/24/21 Shoulder X-Ray (Signed) Yannick Putnam - 05/07/20 Chest X-Ray (Signed) Yannick Putnam - 05/07/20 [place] [address] CT Scan Report Signed Patient: Erik Gee MR#: [id number] : 1945 Acct:[id number] Age/Sex: 78 / M Date of Service: 04/04/23 Loc: ED Accession Number: [id number] ?? Procedure: CT angio head and neck Ordering Provider: Gertrude Tian D.O. PROCEDURE:? CT ANGIO HEAD AND NECK ? INDICATIONS:? dizzy, last known well 2199 ? TECHNIQUE:? ? After the administration of intravenous contrast, 1 mm thick sections acquired from the aortic arch through the [place].? Post-contrast 4.5 mm thick sections then re-acquired from the foramen magnum to the vertex.? 3-dimensional xoxbncz-umcdhtddz-zmmtbyexce (MIP) and/or volume rendering reformats were acquired of the central intracranial vasculature and neck separately. For radiation dose reduction, the following was used:? automated exposure control, adjustment of mA and/or kV according to patient size.? ? COMPARISON:? None. ? FINDINGS:? Image quality:? Excellent.? ? BRAIN:? CSF spaces:? Ventricles are normal in size and shape.? Basal cisterns are patent.? No extra-axial fluid collections.? ? Brain:? No midline shift.? No intracranial bleeds or masses.? [place]-white matter interface appears intact.? ? Skull and face:? Calvarium and facial bones appear intact, without suspicious lesions.? Orbits appear normal.? ? Sinuses:? Sinuses and mastoids are clear.? ? HEAD CT ANGIOGRAPHY:? Anterior circulation:? Intracranial internal carotid arteries are normal in size and flow.? The flow within the paired anterior cerebral arteries is normal and symmetric.? The flow within the middle cerebral arteries is normal and symmetric.? The anterior communicating artery is seen.? No aneurysms are seen.? ? Posterior circulation:? The right vertebral artery is dominant at the foramina magnum..? The left posterior communicating artery gives rise to the left posterior cerebral artery. ?Cerebellar arteries appear patent bilaterally.? Visualized portions of the vertebral arteries demonstrate normal caliber, and join to form a normal appearing basilar artery.? Flow within the posterior cerebral arteries is normal and symmetric.? No aneurysms are seen.? ? NECK CT ANGIOGRAPHY:? Carotid system:? The great vessels demonstrate a conventional anatomy as they arise from the aortic arch.? The origins of the common carotid arteries appear patent.? The common carotid arteries demonstrate normal caliber and courses.? Scattered atherosc lerotic calcification at both carotid bulbs and ICA origins without hemodynamically significant stenosis.? The internal carotid arteries demonstrate normal calibers and courses.? ? Posterior circulation:? There is occlusion or severe narrowing of the right vertebral artery at its origin.? There is trace flow reconstituted at the C6 level, and recurrent occlusion at C5.? There is intermittent severe narrowing until the C1 ring.? The left vertebral artery is widely patent to the level of the foramen magnum where it becomes diffusely diminutive. ? Soft tissues:? Visualized neck soft tissues demonstrate no suspicious abnormalities.? ? Bones:? No suspicious bony lesions.? There are severe degenerative changes at the C1-2 atlantal dental interval.? Visualized cervical spine appears normally aligned.? ? ? IMPRESSION:? ? 1. No mass abnormal enhancement in the brain parenchyma postcontrast. ? 2. 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 This may be acute as this was not mentioned on prior angiographic studies.? Images are not available for direct comparison.? ? Any quantitative measurements of stenosis were performed using NASCET criteria.? ? ? Dictated by: Samantha Sanchez M.D. on 04/04/2023 at 14:04 ? ? Approved by: Samantha Sanchez M.D. on 04/04/2023 at 14:05?? ECG Data Attestation: I personally reviewed and interpreted this ECG as follows: Interpretation: Sinus rhythm rate of 71 FL 174 QRS 88 QTC 417. No acute ST elevation or depression. MDM Narrative Medical decision making narrative: This is a 78-year-old male presents with vertigo-like symptoms last known normal was last night at 10:00 p.m.. Concern for possible stroke, patient does not have any other acute lateralizing symptoms. Notes that it feels similar to when he had a stroke in 2020. He had knee surgery approximately month ago has not had any other infectious symptoms. Patient is on aspirin 81 mg daily he has been off his statin secondary to side effects. He does have an MRI from 11/01/2021 that shows a cerebellar infarct on the right that was subacute at t hat time. CBC, CMP, coags, lactate, LFTs, troponin procalcitonin are negative. Non-con head CT was negative and CT angio does show some occlusion of the right vertebral artery with multifocal stenosis as well as some atherosclerotic disease throughout. Patient case was discussed with Dr. Patito Velez with Neurology through [facility], recommends if not able to obtain MRI today which we are not to load with Plavix 300 mg, obtain MR and re-evaluate after this whether to continue with Plavix or just aspirin daily. She does recommended continue aspirin. She notes that patient should be on a statin daily and discussed that possible alterations in frequency, type of medication should be discussed as this definitely increases his risk factors. Discussed all this with the patient, he is open to alternative dosing and/or IV statin. Patient case was discussed with Dr. Christian, hospitalist who accepts for observation. Discharge Plan Departure Patient Disposition: Admitted as Observation Clinical Impression: Acute CVA (cerebrovascular accident) Admit Date/Time: 04/04/23 16:38 Admit Provider: Andre Christian
--- NOTE | 2023-04-04 16:29 | DI.MRI.S_ITS ---
PROCEDURE: MR HEAD/BRAIN WO CON INDICATIONS: vertigo symptoms TECHNIQUE: Non-contrast axial T1 spin echo, axial T2 fast spin echo, sagittal and axial FLAIR, coronal T2 fast spin echo, axial gradient echo, axial diffusion and ADC through the brain. COMPARISON: [facility], CT, CT ANGIO HEAD AND NECK, 04/04/2023, 13:37. [facility], CT, CT HEAD/BRAIN WO CON, 04/04/2023, 13:26. FINDINGS: Image quality: Excellent. CSF spaces: Ventricles appear symmetric in size and shape. Basal cisterns are patent. No extra-axial fluid collections. Brain: There is old infarct in the right cerebellum with encephalomalacia. No intracranial bleeds or mass effects. There is cerebral volume loss for age. There are periventricular and deep white matter chronic small vessel ischemic changes. Brainstem appears normal. Diffusion-weighted images show no acute ischemic insults. No chronic ischemic insults. Normal intravascular flow voids are present. Skull and face: Calvarial bone marrow is normal in signal. Orbits are normal. Sinuses: There is a mucous retention cyst or polyp in the right maxillary sinus. The mastoids are clear. IMPRESSION: 1. No acute intracranial abnormalities. 2. Old right cerebellar infarct. 3. Cerebral volume loss and chronic microvascular ischemic changes. 4. Mucous retention cyst or polyp in the right maxillary sinus. Dictated by: Dot Becerra M.D. on 04/05/2023 at 8:24 Approved by: Dot Becerra M.D. on 04/05/2023 at 8:28
[2023-04-04] MEDS: ASPIRIN 81 MG CHEW TAB 324 MG PO (17:03)
[2023-04-04] MEDS: CLOPIDOGREL 75 MG TABLET 300 MG PO (17:03)
[2023-04-04 17:07] LABS: RBC Urine None Seen (0-5/HPF); WBC Urine None Seen (0-5/HPF)
[2023-04-04 17:08] LABS: Bacteria Urine None Seen; Culture Indicated Urine Specimen Cultured
--- NOTE | 2023-04-04 17:18 | PM.HP.1 ---
History of Present Illness History of Present Illness Date Patient Seen: 04/04/23 Time Patient Seen: 17:55 Chief complaint: dizziness Narrative: Patient is 76-year-old male resident of [facility] with PMH of prior CVA (2020, cerebellar), urinary retention who presented with dizziness starting this morning when he woke up this morning around 7 am. Last known normal was 10 PM last night. He denies recent fever, chills, abdominal pain, focal numbness or weakness, facial droop or slurred speech. He feels nausea but has not had any vomiting. Symptoms are worse with movement and he has minimal symptoms at rest. He states it feels very similar to his prior stroke but he also reports prior peripheral vertigo. He had a recent knee surgery 1 month ago, course was complicated by constipation and urinary retention from opiates, He has had a mckinnon catheter since and it was changed a couple of weeks ago. He denies abdominal pain or dysuria. In the ER, patient was mildly hypertensive intermittently, but the remainder of his vitals were unremarkable. Laboratory evaluation was unremarkable. CT head without contrast was also unremarkable. Urinalysis showed no rbc's or wbc's and was reflexed for culture. 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 He was admitted for further management and evaluation of vertigo, presumably due to new CVA. [facility] Medical History CVA (cerebral vascular accident) (10/31/21) History of COVID-19 (2021) Precancerous skin lesion Right hip pain Skin cancer Surgical History History of surgery (10/2021) History of tonsillectomy Hx of hernia repair Status post appendectomy Social History household members: children and none Smoking Status: Former smoker alcohol intake: former Meds Home Medications and Allergies Home Medications Medication Instructions Recorded Confirmed Type carboxymethylcellulose 0.5 2 drp ophthalmic (eye) BID 03/02/23 03/08/23 History %-glycerin 0.9 % eye drops (Refresh Optive) ipratropium bromide 21 mcg (0.03 1 spray intranasal DAILY 03/02/23 03/08/23 History %) nasal spray acetaminophen 325 mg tablet 650 mg PO Q6H #120 tabs 03/03/23 04/04/23 Rx aspirin 81 mg tablet,delayed 81 mg PO BID #84 tabs 03/03/23 04/04/23 Rx release tamsulosin 0.4 mg capsule 0.4 mg PO BEDTIME #30 caps 03/07/23 04/04/23 Rx ibuprofen 400 mg tablet 800 mg PO Q8H PRN Pain (Scale 04/04/23 04/04/23 History Score 4-6) Allergies Allergy/AdvReac Type Severity Reaction Status Date / Time oxycodone AdvReac Mild Irritable Verified 04/04/23 13:37 [id number] Reductase AdvReac Mild Muscle Pain Verified 04/04/23 13:37 Inhibitor Review of Systems Review of Systems Narrative: All other systems reviewed with the patient and are negative unless otherwise stated. Exam Vital Signs (past 8 hours): - 04/04/23 13:22 04/04/23 13:10 04/04/23 13:48 Temperature 97.6 F Pulse Rate 72 73 75 Respiratory Rate 17 20 11 L Blood Pressure 162/74 H Pulse Oximetry 98 94 Oxygen Delivery Method Room Air 04/04/23 14:00 04/04/23 14:18 04/04/23 14:18 Temperature Pulse Rate 71 81 Respiratory Rate 16 31 H Blood Pressure 165/78 H Pulse Oximetry 100 99 Oxygen Delivery Method 04/04/23 14:30 04/04/23 14:30 04/04/23 15:00 Temperature Pulse Rate 81 Respiratory Rate 15 Blood Pressure 168/77 H 152/63 H Pulse Oximetry 98 Oxygen Delivery Method Room Air 04/04/23 15:00 04/04/23 15:30 04/04/23 15:31 Temperature Pulse Rate 81 82 78 Respiratory Rate 14 23 Blood Pressure Pulse Oximetry 100 97 96 Oxygen Delivery Method 04/04/23 15:31 04/04/23 15:46 04/04/23 15:46 Temperature Pulse Rate 78 Respiratory Rate Blood Pressure 138/63 133/74 Pulse Oximetry 99 Oxygen Delivery Method 04/04/23 16:00 04/04/23 16:00 04/04/23 16:30 Temperature Pulse Rate 73 Respiratory Rate 20 Blood Pressure 150/80 H 143/72 H Pulse Oximetry 97 Oxygen Delivery Method 04/04/23 16:30 04/04/23 17:00 04/04/23 17:00 Temperature Pulse Rate 69 72 Respiratory Rate 15 18 Blood Pressure 147/68 H Pulse Oximetry 99 96 Oxygen Delivery Method Oxygen Delivery Method Room Air Narrative Exam Narrative: General:? Patient is well developed and well nourished, in no distress at this time. HEENT:? Normocephalic, atraumatic, extraocular muscles intact, oral pharynx is clear and mucous membranes are moist. Neck: supple and symmetric, trachea is midline, no cervical adenopathy. Negative for JVD Chest:? Normal AP diameter and contour without kyphoscoliosis, no tachypnea, equal chest rise bilaterally. Lungs:? CTA b/l no wheezing rhonchi or rales. Cardio:?RRR no m/r/g. Abdomen: S NT ND. No CVA tenderness. Musculoskeletal:? Muscle strength and tone are equal within normal limits, no deformity. Extremities: No edema or joint effusions. No cyanosis or clubbing. Skin:? Pale,? Warm to touch,dry and intact without rashes, ulcerations or petechiae.? Neuro:? Alert and orientated x3,? sensation to touch intact in all extremities, no gross deficits noted of cranial nerves. Psych:? Patient has a well-kept appearance, appropriate affect, mental status attitude thought context and judgment are appropriate for age. Objective ECG Impression: Normal sinus rhythm without evidence of acute ischemia as interpreted by me Labs 04/04/23 13:18 04/04/23 13:18 Labs: Laboratory Results - last 24 hr 04/04/23 04/04/23 04/04/23 13:18 13:18 13:18 WBC 5.2 RBC 3.56 L Hgb 11.4 L Hct 32.3 L MCV 90.8 MCH 31.9 MCHC 35.2 RDW 14.9 H Plt Count 240 Neut % (Auto) 70.0 Lymph % (Auto) 19.8 L [place] % (Auto) 7.4 Eos % (Auto) 2.3 Baso % (Auto) 0.5 Neut # (Auto) 3600 Lymph # (Auto) 1000 L [place] # (Auto) 400 Eos # (Auto) 100 Baso # (Auto) 0 PT 12.9 H INR 1.1 APTT 27 Sodium 138 Potassium 4.4 Chloride 106 Carbon Dioxide 29 BUN 14 Creatinine 0.71 Estimated GFR > 60 BUN/Creatinine Ratio 19.7 Glucose 116 H Lactate Calcium 8.7 Total Bilirubin 0.4 AST 22 ALT 17 Alkaline Phosphatase 100 Total Creatine Kinase 46 L CK-MB (CK-2) TNP CK-MB (CK-2) Rel Index TNP Troponin I < 0.012 Total Protein 6.4 Albumin 3.6 Globulin 2.8 Albumin/Globulin Ratio 1.3 Lipase 29 Procalcitonin < 0.03 Urine RBC Urine WBC Urine Bacteria Urine Yeast Ur Culture Indicated? 04/04/23 04/04/23 13:18 15:22 WBC RBC Hgb Hct MCV MCH MCHC RDW Plt Count Neut % (Auto) Lymph % (Auto) [place] % (Auto) Eos % (Auto) Baso % (Auto) Neut # (Auto) Lymph # (Auto) [place] # (Auto) Eos # (Auto) Baso # (Auto) PT INR APTT Sodium Potassium Chloride Carbon Dioxide BUN Creatinine Estimated GFR BUN/Creatinine Ratio Glucose Lactate 1.9 Calcium Total Bilirubin AST ALT Alkaline Phosphatase Total Creatine Kinase CK-MB (CK-2) CK-MB (CK-2) Rel Index Troponin I Total Protein Albumin Globulin Albumin/Globulin Ratio Lipase Procalcitonin Urine RBC None seen Urine WBC None seen Urine Bacteria None seen Urine Yeast 10-30/hpf H Ur Culture Indicated? Specimen cultured Assessment & Plan Assessment & Plan narrative: 1. Vertigo, suspect due to CVA - MRI to eval for possible CVA given prior history of cerebellar infarct. Suspect central etiology given prior history, exam without nystagmus, and cerebellar artery occlusion on vascular imaging. Though it is also possible that there is a peripheral etiology as patient does have a history of both. - continue asa, add plavix and statin (prior muscle aches with atorvastatin). Will need to change to alternative high intensity statin on discharge. - PT / OT consultations - meclizine 25 mg prn. - check orthostatic vitals - continue to follow labs, no obvious lab abnormalities on admission. 2. history of CVA - continue home asa as noted above, increases likelihood of central etiology for his presenting symptoms. 3. Asymptomatic funguria, present on admission. - will remove mckinnon, patient elects for trial of void given urinary retention discussed below. 4. urinary retention, subacute, present on admission, with chronic bph - likely due to combination of BPH and opiate use. - discussed with patient, we would like to trial mckinnon removal while admitted given his funguria. If he retains, understand mckinnon will need to be put back in and follow up with urology as an outpatient. - continue flomax, but may need to stop if orthostatics positive Code: Full surrogate: patient's son Dispo: admit observation, hopeful for discharge home tomorrow depending on improvement with vertigo. I have utilized all available immediate resources to obtain, update, or review the patient's current medications. I have personally reviewed patient's admission imaging, lab evaluations, and documentation along with EKG. Reviewed patient's prior admission documentation and imaging including MRI results. Additional history obtained from the ER provider. Discussed plan of care with the patient. Quality MIPS - Admit I confirm the patient?s Advance Care Plan is present, Code status is documented, Surrogate decision maker is in patient?s record [If Yes, STOP here]: Yes
[2023-04-04] MEDS: ATORVASTATIN 20 MG TABLET 40 MG PO (21:17)
[2023-04-04] MEDS: TAMSULOSIN 0.4 MG CAPSULE PO (21:17)
--- NOTE | 2023-04-04 23:02 | PC.NURSE ---
Addendum entered by Roger Rose R.N. 04/05/23 04:10: Pt voided x1 75ml. Pt c/o pain and dyscomfort in bladder. Bladder scanner showing 600ml. Dr. Servin informed, mckinnon catheter order placed. Original Note: Mckinnon catheter removed around 2129, tip intact, patient tolerated.
[2023-04-05 01:09] VITALS: BP 116/65; PULSE 80; RESP 18; TEMP 37.2; O2SAT 96
[2023-04-05 04:24] VITALS: BP 130/62; PULSE 78; RESP 18; TEMP 37.2; O2SAT 97
[2023-04-05 05:16] LABS: Add Manual Diff / Slide Review NO; Basophils Absolute Auto 0 /uL (0-100); Basophils Percent Auto 0.3 % (0-2); Eosinophils Absolute Auto 200 /uL (0-450); Eosinophils Percent Auto 2.2 % (2-4); Hematocrit 34.8 % (41-53); Hemoglobin 12.2 g/dL (13.5-17.5); Lymphocytes Absolute Auto 1100 /uL (1100-4500); Lymphocytes Percent Auto 14.8 % (25-40); Mean Corpuscular HGB Conc 35.1 % (30-36); Mean Corpuscular Hemoglobin 31.2 PG (26-34); Monocytes Absolute Auto 500 /uL (0-900); Monocytes Percent Auto 6.4 % (3-14); Neutrophils Absolute Auto 5600 /uL (1500-7000); Neutrophils Percent Auto 76.3 % (50-75); Platelet Count 240 X10^3/uL (150-400); White Blood Cell Count 7.3 X10^3/uL (4.5-11.0)
[2023-04-05 05:26] LABS: BUN Creatinine Ratio 19.1 (6-22); Blood Urea Nitrogen 13 mg/dL (9-20); Calcium 8.8 mg/dL (8.4-10.2); Carbon Dioxide 27 mmol/L (22-32); Chloride 104 mmol/L (98-107); Estimated Glomerular Filt Rate > 60 mL/min (>60); Glucose 110 mg/dL (80-110); HEMOLYSIS < 15 (0-50); Magnesium 2.1 mg/dL (1.6-2.3); Sodium 137 mmol/L (137-145)
[2023-04-05 08:00] VITALS: BP 114/69; PULSE 84; RESP 18; TEMP 36.8; O2SAT 95
[2023-04-05] MEDS: ASPIRIN EC 81 MG TABLET PO (08:35)
[2023-04-05] MEDS: CLOPIDOGREL 75 MG TABLET PO (08:36)
[2023-04-05] MEDS: ENOXAPARIN 40 MG/0.4 ML SYRINGE SUBCUT (08:36)
[2023-04-05 09:00] VITALS: O2SAT 95
--- NOTE | 2023-04-05 10:22 | PM.DS.1 ---
History of Present Illness History of Present Illness Date Patient Seen: 04/05/23 Time Patient Seen: 10:22 Chief complaint: dizziness Narrative: Patient is 76-year-old male resident of [facility] with PMH of prior CVA (2020, cerebellar), urinary retention who presented with dizziness starting this morning when he woke up this morning around 7 am. Last known normal was 10 PM last night. He denies recent fever, chills, abdominal pain, focal numbness or weakness, facial droop or slurred speech. He feels nausea but has not had any vomiting. Symptoms are worse with movement and he has minimal symptoms at rest. He states it feels very similar to his prior stroke but he also reports prior peripheral vertigo. He had a recent knee surgery 1 month ago, course was complicated by constipation and urinary retention from opiates, He has had a mckinnon catheter since and it was changed a couple of weeks ago. He denies abdominal pain or dysuria. In the ER, patient was mildly hypertensive intermittently, but the remainder of his vitals were unremarkable. Laboratory evaluation was unremarkable. CT head without contrast was also unremarkable. Urinalysis showed no rbc's or wbc's and was reflexed for culture. 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 He was admitted for further management and evaluation of vertigo, presumably due to new CVA. Discharge Providers Provider Date of admission: 04/04/23 16:38 Discharge Date: 04/05/23 Primary care physician: Sania Cross PA-C Discharge provider: Andre Christian DO Summary Hospital Course Discharge Diagnosis: 1. Vertigo, suspect due to TIA 2. history of CVA. 3. Asymptomatic funguria, present on admission. 4. urinary retention, subacute, present on admission, with chronic bph Hospital Course: This is a 78 year old male with PMH of prior cerebellar CVA who presented with vertigo. Given history of prior CVA in his cerebellum, and an occulded vertebral artery it was presumed secondary to a central etiology. Tele-stroke recommended aspirin and plavix loading and observation He had slow improvement in his symptoms, and was able to ambulate without assistance with some meclizine the following morning. MRI was performed the following morning and showed no acute infarcts. He was assessed with physical therapy, and will continue PT as previously ordered based on recent knee surgery. He may benefit from vestibular therapy as an outpatient depending on continued sypmtoms. For presumed TIA he was continued on asa 81 mg BID (per ortho for DVT ppx) and plavix 75 mg daily was added for 20 days to reduce recurrence risk. He was also noted to have fungal elements on urinalysis. He had a mckinnon catheter placed a few weeks ago after urinary retention in the setting of opiate use. He wished to attempt trial of void here, and catheter was removed but needed to be replaced as patient was unable to void and again had urinary retention. He should follow up with urology as previously scheduled. Time Spent with Patient Time spent: Greater than 30 minutes Exam Vital Signs (past 8 hours): - 04/05/23 04:24 04/05/23 04:24 04/05/23 08:00 Temperature 98.9 F 98.2 F Pulse Rate 78 84 Respiratory Rate 18 18 Blood Pressure 130/62 114/69 Pulse Oximetry 97 97 95 Oxygen Delivery Method Room Air Oxygen Flow Rate 0 0 Oxygen Delivery Method Room Air Oxygen Flow Rate 0 Narrative Exam Narrative: General:? Patient is well developed and well nourished, in no distress at this time. HEENT:? Normocephalic, atraumatic, extraocular muscles intact, oral pharynx is clear and mucous membranes are moist. Neck: supple and symmetric, trachea is midline, no cervical adenopathy. Negative for JVD Chest:? Normal AP diameter and contour without kyphoscoliosis, no tachypnea, equal chest rise bilaterally. Lungs:? CTA b/l no wheezing rhonchi or rales. Cardio:?RRR no m/r/g. Abdomen: S NT ND. No CVA tenderness. Musculoskeletal:? Muscle strength and tone are equal within normal limits, no deformity. Extremities: No edema or joint effusions. No cyanosis or clubbing. Skin:? Pale,? Warm to touch,dry and intact without rashes, ulcerations or petechiae.? Neuro:? Alert and orientated x3,? sensation to touch intact in all extremities, no gross deficits noted of cranial nerves. Psych:? Patient has a well-kept appearance, appropriate affect, mental status attitude thought context and judgment are appropriate for age. Objective Labs 04/05/23 04:55 04/05/23 04:55 Labs: Laboratory Results - last 24 hr 04/04/23 04/04/23 04/04/23 13:18 13:18 13:18 WBC 5.2 RBC 3.56 L Hgb 11.4 L Hct 32.3 L MCV 90.8 MCH 31.9 MCHC 35.2 RDW 14.9 H Plt Count 240 Neut % (Auto) 70.0 Lymph % (Auto) 19.8 L [place] % (Auto) 7.4 Eos % (Auto) 2.3 Baso % (Auto) 0.5 Neut # (Auto) 3600 Lymph # (Auto) 1000 L [place] # (Auto) 400 Eos # (Auto) 100 Baso # (Auto) 0 PT 12.9 H INR 1.1 APTT 27 Sodium 138 Potassium 4.4 Chloride 106 Carbon Dioxide 29 BUN 14 Creatinine 0.71 Estimated GFR > 60 BUN/Creatinine Ratio 19.7 Glucose 116 H Lactate Calcium 8.7 Magnesium Total Bilirubin 0.4 AST 22 ALT 17 Alkaline Phosphatase 100 Total Creatine Kinase 46 L CK-MB (CK-2) TNP CK-MB (CK-2) Rel Index TNP Troponin I < 0.012 Total Protein 6.4 Albumin 3.6 Globulin 2.8 Albumin/Globulin Ratio 1.3 Lipase 29 Procalcitonin < 0.03 Urine RBC Urine WBC Urine Bacteria Urine Yeast Ur Culture Indicated? 04/04/23 04/04/23 04/05/23 13:18 15:22 04:55 WBC 7.3 RBC 3.90 L Hgb 12.2 L Hct 34.8 L MCV 89.0 MCH 31.2 MCHC 35.1 RDW 15.0 H Plt Count 240 Neut % (Auto) 76.3 H Lymph % (Auto) 14.8 L [place] % (Auto) 6.4 Eos % (Auto) 2.2 Baso % (Auto) 0.3 Neut # (Auto) 5600 Lymph # (Auto) 1100 [place] # (Auto) 500 Eos # (Auto) 200 Baso # (Auto) 0 PT INR APTT Sodium Potassium Chloride Carbon Dioxide BUN Creatinine Estimated GFR BUN/Creatinine Ratio Glucose Lactate 1.9 Calcium Magnesium Total Bilirubin AST ALT Alkaline Phosphatase Total Creatine Kinase CK-MB (CK-2) CK-MB (CK-2) Rel Index Troponin I Total Protein Albumin Globulin Albumin/Globulin Ratio Lipase Procalcitonin Urine RBC None seen Urine WBC None seen Urine Bacteria None seen Urine Yeast 10-30/hpf H Ur Culture Indicated? Specimen cultured 04/05/23 04:55 WBC RBC Hgb Hct MCV MCH MCHC RDW Plt Count Neut % (Auto) Lymph % (Auto) [place] % (Auto) Eos % (Auto) Baso % (Auto) Neut # (Auto) Lymph # (Auto) [place] # (Auto) Eos # (Auto) Baso # (Auto) PT INR APTT Sodium 137 Potassium 4.0 Chloride 104 Carbon Dioxide 27 BUN 13 Creatinine 0.68 Estimated GFR > 60 BUN/Creatinine Ratio 19.1 Glucose 110 Lactate Calcium 8.8 Magnesium 2.1 Total Bilirubin AST ALT Alkaline Phosphatase Total Creatine Kinase CK-MB (CK-2) CK-MB (CK-2) Rel Index Troponin I Total Protein Albumin Globulin Albumin/Globulin Ratio Lipase Procalcitonin Urine RBC Urine WBC Urine Bacteria Urine Yeast Ur Culture Indicated? [facility] Medical History CVA (cerebral vascular accident) (10/31/21) History of COVID-19 (2021) Precancerous skin lesion Right hip pain Skin cancer Surgical History History of surgery (10/2021) History of tonsillectomy Hx of hernia repair Status post appendectomy Social History household members: none Smoking Status: Former smoker alcohol intake: former Discharge Plan Discharge Plan Patient Disposition: Home Provider Discharge Comment: You were admitted to the hospital with dizziness, probably due to a TIA as MRI showed no new stroke. Continue symptom relief as needed with meclizine. We attempted to discontinue your mckinnon catheter but you continued to have difficulty voiding so it was replaced. Continue urology follow up. Discharge orders & Medications Prescriptions: New meclizine 25 mg tablet 25 mg PO TID PRN (Reason: dizziness) 14 Days Qty: 30 0RF clopidogrel 75 mg tablet 75 mg PO DAILY 20 Days Qty: 20 0RF rosuvastatin 20 mg tablet 20 mg PO DAILY 30 Days Qty: 30 0RF Continued ipratropium bromide 21 mcg (0.03 %) spray,non-aerosol 1 spray INTRANASAL DAILY Refresh Optive 0.5-0.9 % Drops 2 drp OPHTHALMIC (EYE) BID acetaminophen 325 mg Tablet 650 mg PO Q6H Qty: 120 0RF aspirin 81 mg Tablet,Delayed Release (Dr/Ec) 81 mg PO BID Qty: 84 0RF tamsulosin 0.4 mg capsule 0.4 mg PO BEDTIME Qty: 30 3RF Rx Instructions: start tonight Discontinued ibuprofen 400 mg tablet 800 mg PO Q8H PRN (Reason: Pain (Scale Score 4-6)) Medication counseling provided by Pharmacist: Yes Follow up/Referrals: Sania Cross PA-C [Primary Care Provider] - Diet/Activity/Treatments Diet: Diet as Tolerated Activity: As tolerated Catheter: 2-way Mckinnon Visit Report/Discharge Packet Instructions: DI for Vertigo Stand Alone Forms: Patient Portal/API, Stroke Signs & Symptoms Discharge Data Primary Care Provider: Sania Cross Attending Provider: Andre Christian Admjeb Date/Time: 04/04/23 16:38 Quality VTE Deep Vein Thrombosis/Pulmonary Embolism Present on Admission: No
--- NOTE | 2023-04-05 12:36 | CM.DANOTE ---
Discharge Assessment Note: Case reviewed, met with patient. Introduced self and role. Payer: Medicare and [employer] PCP: Sania Cross 78 year old resident of [facility] with PMH prior CVA 2020, urinary retention, nausea, and vertigo which feels similar to prior CVA. Had knee surgery 1 month ago. Has mckinnon catheter. PT/OT evals ordered. Patient lives alone and drives. Patient lives alone and drives. His son also lives on [place] and is supportive. Plan: When medically stable return home to [place] to care of son who will transport. [facility] Discharge Planning/Care Management CM Discharge Assessment Start: 04/05/23 12:27 Freq: Status: Active Protocol: Document 04/05/23 12:27 (Rec: 04/05/23 12:36 [id number]) Discharge Planning Assessment Assigned Programmer Or Analyst Maritza Swanson RN/DCP Advance Directives? No History Provided By Patient,Medical Record Prior Living Arrangements House Household Members none, Type of transporation used prior to drives admit Independent with ADL's Yes Is patient alert and oriented? Yes Caregiver for Another No Patient/Family Preference OP PT Therapy Barriers to Discharge No Discharge Plan Home Transportation Arrangement Patients son will help with transportation back to [place] will need priority boarding Referrals Initiated None needed Review Status In Process Next Review Type Continued Stay Review
--- NOTE | 2023-04-05 12:55 | PT.IIE ---
Surgical History (Last Reviewed 04/04/23 @ 17:55 by Andre Christian DO) History of surgery (10/2021) History of tonsillectomy Hx of hernia repair Status post appendectomy Medical History (Last Reviewed 04/04/23 @ 17:55 by Andre Christian DO) CVA (cerebral vascular accident) (10/31/21) History of COVID-19 (2021) Precancerous skin lesion Right hip pain Skin cancer Physical Therapy Inpatient Evaluation/Re-Eval M1 PT/OT-IP Prior Functional Status Start: 04/05/23 14:37 Freq: NEEDED Status: Active Protocol: Document 04/05/23 12:55 AB (Rec: 04/05/23 14:55 AB [id number]) Medical Review Prior Functional Status Medical History Reviewed Yes Communication able to make needs known Mobility and Gait pt stated that he is modified independent with all mobilities and ambulation without AD; pt had R TKA ~ 1 month ago and stated that he is recovering well and has been ambulate ~ 1 mile daily Prior Functional Level (Other details) pt with h/o R TKA ~ 4 weeks ago and has been doing well but then c/o dizziness and stated that it was the same feeling when he had his first CVA. Social History Household Members none Living Arrangements House Number of Floors (Floors) Two Floors Number of Stairs To Enter/Railing? pt plans to stay at his son's house upon d/c : home set up info is regarding pt's son's house 1 step to enter pt stays on main level of the house Home Environment Standard Height Toilet,Tub/ Shower Home Equipment Front Wheel Walker,Straight Cane,Tub Transfer Bench,Hand Held Shower Additional Social History Comment pt will be staying at his son' s house for 1 more week and then will be staying at his friend's house before going back to his own house M2 PT-IP Current Condition Start: 04/05/23 14:37 Freq: NEEDED Status: Active Protocol: Document 04/05/23 12:55 AB (Rec: 04/05/23 14:55 AB [id number]) Physical Therapy Current Condition Current Condition Evaluation Date 04/05/23 Treatment Diagnosis CVA; difficulty in walking Onset Date 04/04/23 M3 PT-IP Subjective Start: 04/05/23 14:37 Freq: NEEDED Status: Active Protocol: Document 04/05/23 12:55 AB (Rec: 04/05/23 14:55 AB [email or web address]) Subjective Physical Therapy Visit Type Type Initial Evaluation Visit Start Time 12:55 Visit Stop Time 13:35 Total Visit Minutes 40 Number of NEWBORN HEARING SCREENER Visits 0 Physical Therapy Visit Comments Patient Comments agreeable to do PT Therapy Pain Assessment Pain Present Pain Present Denied Pain M4 PT-IP Mobility and Gait Start: 04/05/23 14:37 Freq: NEEDED Status: Active Protocol: Document 04/05/23 12:55 AB (Rec: 04/05/23 14:55 AB [email or web address]) PT-Bed Mobility Assessment Supine to Sit Supine to Sit Independent PT-Transfer Assessment Sit to and From Stand Sit to and from Stand Standby Assistance,1 Person Assistance,Use of Upper Extremities Equipment Transfer Assistive Device None Orthotic/Prosthetic Devices or Brace: No Transfers Transfer Technique ambulated Transfer Ability Level of Assist Standby Assistance Comments Mobility Comments BP: 118/66. pt stated that he still has slight dizziness but medication is working. completed supine to sit mod I. informed pt to focus vision on an item to decrease risk of dizziness. pt stated that he had vestibular therapy when he first had his CVA and is aware on how to focus. completed sit to stand SBA and ambulated in room using FWW ~ 20 ft SBA. assessed ambulation without AD and able to ambulate SBA to occasional CGA ~ 30 ft. pt with guarded gait but without LOB. pt wanting to put his clothes on and assisted. able to stand and balance without AD SBA while managing brief and pants. ambulated towards the sink SBA and able to maintain balance SBA while completing grooming needs. pt ambulated towards the step and completed SBA with pt holding on to 1 rail. pt stated that he holds on to door frame when getting in/out of the house. pt ambulated back in room ~ 30 ft without AD. sat on chair. table and call light placed within reach. informed pt to use FWW/SPC for mobility at this time especially for outdoor ambulation and agreed. informed pt regarding going for vestibular PT. pt currently going to PT for R knee post op TKA and will also need vestibular PT. Pt agreed . Gait Assessment Gait Gait Assistance Required: Standby Assistance Distance (Feet) 30 Able to Maintain Weight Bearing Status Yes During Gait Assistive Devices Assistive Device None,Front Wheeled Walker Orthotic/Prosthetic Devices or Brace: No Gait Deviations General Gait Pattern Ataxic,Decreased Stride Length ,Decreased Feet Clearance,Step -to Gait Factors Limiting Gait Function Factors Limiting Gait Function Decreased Activity Tolerance, Decreased Strength,Limited Range of Motion,Pain,Poor Balance Stair Climbing Assessment Evaluation Level of Assist On Stairs Standby Assistance Devices Stair Climbing Assistive Devices None,Right Railing Technique/Endurance Stair Climbing Direction Ascend and Descend Stair Climbing Technique Step to Step Number of Steps Climbed 1 Query Text: Stair Climbing Set # Repetitions (reps) 2 PT-Balance Assessment Sitting Balance and Reactions Static Sitting Balance Ability Normal Dynamic Sitting Balance Ability Good Standing Balance and Reactions Static Standing Balance Ability Good Dynamic Standing Balance Ability Fair Device Used without AD M5 PT-IP Objective Assessments Start: 04/05/23 14:37 Freq: NEEDED Status: Active Protocol: Document 04/05/23 12:55 AB (Rec: 04/05/23 14:55 AB [email or web address]) Orientation Orientation/Cognition Level of Alertness Alert Orientation Name,Place,Situation Language Function Ability No Deficits Noted Safety Awareness Understands Safety Issues Memory Description No Deficits Noted Strength Lower Extremity Strength Hip 4-/5 Knee 4-/5 Sensation Assessment Sensation Gross Sensation WNL Muscle Tone Muscle Tone WNL Yes M6 PT-IP Treatment Start: 04/05/23 14:37 Freq: NEEDED Status: Active Protocol: Document 04/05/23 12:55 AB (Rec: 04/05/23 14:55 AB [email or web address]) Physical Therapy Treatment Education Education Provided Safety M7 PT-IP Assessment and Plan Start: 04/05/23 14:37 Freq: NEEDED Status: Active Protocol: Document 04/05/23 12:55 AB (Rec: 04/05/23 14:55 AB [email or web address]) PT Summary Assessment and Plan Potential Rehabilitation Potential Fair Status of Condition at Evaluation Stable Summary Impairments ROM,Balance,Coordination, Sensation,Bed Mobility, Transfers,Gait,Activity Tolerance Assessment Summary Pt requiring SBA to CGA with mobility without AD. pt plans to go home to his son's house and son will be able to assist as needed. pt to continue with outpt PT but will also need vestibular PT. Goals Bed Mobility Goal Independent Transfer Goal Independent Gait Goal Independent Gait Distance 250 Other Goals up/down 1 step without rail mod I Days to Meet Goals 5 Frequency of Treatment Frequency Of Treatment Once a Day Treatment Plan Physical Therapy Treatment Plan Bed Mobility Training,Transfer Training,Gait Training, Therapeutic Exercise,Balance Retraining,Post Op Education, Discharge Planning,Hot or Cold Pack,Neuromuscular Re-ed, Coordination Retraining,Manual Therapy Recommendations To Nursing Amount of Assist Needed Standby Assistance Discharge Recommendations PT Discharge Recommendations Home with Assistance, Outpatient PT Transportation Needs at Discharge Private Vehicle
[2023-04-05 13:00] VITALS: O2SAT 95
[2023-04-05 13:54] VITALS: BP 111/60; PULSE 81; RESP 18; TEMP 36.5
--- NOTE | 2023-04-05 16:31 | PC.NURSE ---
Patient is A&OX4, denies any dizziness, CP, headache, SOB or neurological changes. He is able to tolerate breakfast well and completes MRI this a.m. He is cleared for discharge home today with Son. Patient needing assistance on ferry to home. He verbalizes understanding of activity, catheter care, medications, worsening symptoms and follow up plan of care with PCP for referral to urologist. He is escorted via w/ch to emergency exit for discharge home in private vehicle with son on ferry to [facility] this afternoon at approximately 1500.
== END 2023-04-05 15:00 | disposition home or self-care (01) ==
LOC: ED 15:05 → AC 16:39
PROVIDERS: Admitting Provider Internal Medicine; Emergency Provider Emergency Medicine; PCP Physician Assistant; Visit Provider Internal Medicine
DX: R42 Dizziness and giddiness (principal); Z86.73 Personal history of transient ischemic attack (TIA), and cerebral infarction without residual deficits; R29.700 NIHSS score 0; N40.1 Benign prostatic hyperplasia with lower urinary tract symptoms; R33.8 Other retention of urine
CPT/HCPCS: 36415; 70450; 70496; 70498; 70551; 71045; 80048; 80053; 81003; 81015; 82550; 83605; 83690; 83735; 84145; 84484; 85025; 85610; 85730; 87040; 87077; 87086; 93005; 96360; 96372; 97161; 97530; 99284; 99285; G0378; J1650; Q9967

== ENCOUNTER → 2023-05-17 14:00 | Outpatient (CLI) | payer MEDICARE, BC, SELFPAY ==
[2023-04-29 14:32] VITALS: BMI 22.6
== END ==
PROVIDERS: PCP Physician Assistant; Visit Provider Specialist
DX: N40.1 Benign prostatic hyperplasia with lower urinary tract symptoms (principal); N13.8 Other obstructive and reflux uropathy; N21.0 Calculus in bladder; R33.9 Retention of urine, unspecified; T19.1XXA Foreign body in bladder, initial encounter; Z87.898 Personal history of other specified conditions
CPT/HCPCS: 51798; 52000; 76872; 81002; 87077; 87086; 87186; 99215

== ENCOUNTER → 2023-05-24 10:36 | Outpatient (CLI) | payer MEDICARE, BC, SELFPAY ==
[2023-04-29 14:32] VITALS: BMI 22.6
[2023-05-24 20:06] LABS: Add Manual Diff / Slide Review NO; Basophils Absolute Auto 0 /uL (0-100); Basophils Percent Auto 0.2 % (0-2); Eosinophils Absolute Auto 100 /uL (0-450); Hematocrit 37.7 % (41-53); Hemoglobin 13.1 g/dL (13.5-17.5); Lymphocytes Absolute Auto 1200 /uL (1100-4500); Lymphocytes Percent Auto 24.4 % (25-40); Mean Corpuscular HGB Conc 34.8 % (30-36); Mean Corpuscular Hemoglobin 31.5 PG (26-34); Mean Corpuscular Volume 90.4 fL (80-100); Monocytes Absolute Auto 500 /uL (0-900); Monocytes Percent Auto 10.3 % (3-14); Neutrophils Absolute Auto 3200 /uL (1500-7000); Neutrophils Percent Auto 64.1 % (50-75); Platelet Count 228 X10^3/uL (150-400); Red Blood Cell Count 4.17 X10^6/uL (4.5-5.9); Red Cell Distribution Width 12.7 % (11.6-14.8)
[2023-05-24 20:17] LABS: Cholesterol 105 mg/dL (140-199); HDL Cholesterol 42 mg/dL (40-60); LDL Cholesterol Calculated 48 mg/dL (<100); Triglycerides 73 mg/dL (35-150)
[2023-05-24 20:51] LABS: Ferritin 35 ng/mL (18-464)
== END ==
PROVIDERS: PCP Physician Assistant; Visit Provider Physician Assistant
DX: I63.9 Cerebral infarction, unspecified (principal); D64.9 Anemia, unspecified; R53.83 Other fatigue
CPT/HCPCS: 80061; 82728; 85025

== ENCOUNTER → 2023-06-15 13:24 | Outpatient (CLI) | payer MEDICARE, BC, SELFPAY ==
[2023-04-29 14:32] VITALS: BMI 22.6
== END ==
PROVIDERS: PCP Physician Assistant; Visit Provider Specialist
DX: N40.1 Benign prostatic hyperplasia with lower urinary tract symptoms (principal); N13.8 Other obstructive and reflux uropathy; N21.0 Calculus in bladder; T19.1XXD Foreign body in bladder, subsequent encounter; Z87.898 Personal history of other specified conditions
CPT/HCPCS: 51798; 81002; 87077; 87086; 87186; 99215

== ENCOUNTER → 2023-07-18 09:35 | Outpatient (CLI) | payer MEDICARE, BC, SELFPAY ==
[2023-04-29 14:32] VITALS: BMI 22.6
[2023-07-18 11:00] LABS: Add Manual Diff / Slide Review NO; Basophils Absolute Auto 0 /uL (0-100); Basophils Percent Auto 0.3 % (0-2); Eosinophils Absolute Auto 100 /uL (0-450); Eosinophils Percent Auto 1.1 % (2-4); Hematocrit 40.6 % (41-53); Hemoglobin 14.2 g/dL (13.5-17.5); Lymphocytes Absolute Auto 1200 /uL (1100-4500); Lymphocytes Percent Auto 21.7 % (25-40); Mean Corpuscular HGB Conc 34.9 % (30-36); Mean Corpuscular Hemoglobin 31.2 PG (26-34); Mean Corpuscular Volume 89.3 fL (80-100); Monocytes Absolute Auto 400 /uL (0-900); Monocytes Percent Auto 6.9 % (3-14); Neutrophils Absolute Auto 4000 /uL (1500-7000); Platelet Count 200 X10^3/uL (150-400); Red Blood Cell Count 4.55 X10^6/uL (4.5-5.9); Red Cell Distribution Width 12.8 % (11.6-14.8); White Blood Cell Count 5.7 X10^3/uL (4.5-11.0)
[2023-07-18 11:13] LABS: HEMOLYSIS < 15 (0-50); Iron 71 ug/dL (49-181)
[2023-07-18 11:27] LABS: Percent Iron Saturation 20 % (20-50); Total Iron Binding Capacity 356 ug/dL (261-462); Transferrin 248 mg/dL (206-381)
[2023-07-18 11:52] LABS: Ferritin 26 ng/mL (18-464)
[2023-07-18 12:23] LABS: Folate 6.2 ng/mL (2.76-20.0); Vitamin B12 363 pg/mL (239-931)
== END ==
PROVIDERS: PCP Physician Assistant; Referring Provider Physician Assistant; Visit Provider Physician Assistant
DX: D64.9 Anemia, unspecified (principal)
CPT/HCPCS: 36415; 82607; 82728; 82746; 83540; 83550; 85025

== ENCOUNTER → 2023-09-27 15:05 | Outpatient (CLI) | payer MEDICARE, BC, SELFPAY ==
[2023-04-29 14:32] VITALS: BMI 22.6
== END ==
PROVIDERS: PCP Physician Assistant; Visit Provider Specialist
DX: N13.8 Other obstructive and reflux uropathy (principal); N40.1 Benign prostatic hyperplasia with lower urinary tract symptoms; N39.0 Urinary tract infection, site not specified; R31.9 Hematuria, unspecified; T19.1XXD Foreign body in bladder, subsequent encounter; N21.0 Calculus in bladder; Z87.440 Personal history of urinary (tract) infections; Z87.898 Personal history of other specified conditions
CPT/HCPCS: 81002; 87077; 87086; 87186; 99215

== ENCOUNTER 2023-10-14 08:36 | Day surgery (SDC) | payer MEDICARE, BC, SELFPAY ==
[2023-04-29 14:32] VITALS: BMI 22.6
[2023-10-12 14:20] VITALS: BMI 22.3
--- NOTE | 2023-10-14 | PATH_ITS ---
[facility] Accession Number: [id number] No. of containers..01 Tissue . 01 Material submitted: . bladder - BLADDER NECK . 01 Clinical history: . BLADDER NECK, FOREIGN BODY FOR GROSS ANALYSIS . 01 Diagnosis: Bladder Neck, Foreign Body, Removal: Foreign body (for gross examination only). MRV 10/18/2023 1248 Local . 01 Electronically signed: . Yancy Jones MD, Pathologist NPI- [id number] . 01 Gross description: . The specimen is received in formalin, labeled with the patient's name, , and bladder neck for gross analysis foreign body, and consists of two small, curved, wire-like structures, both measuring 1.1 cm in length by less than 0.1 cm in diameter, with a teal, plastic filament protruding from the approximate mid-point of each piece, measuring 0.3 cm in length by less than 0.1 cm in diameter. No tissue is identified. The specimen is for gross-only evaluation, and no sections are submitted. ([id number]) /FRR 10/15/2023 1537 Local . 01 Pathologist provided ICD-10: Z87.440, N32.0, T19.1XXA . 01 CPT . 600698 Specimen Comment: A courtesy copy of this report has been sent to [phone] Performed at: 01 [facility] [address] [place] [address] [id number] MD Malachi Centeno MD Phone: [phone]
[2023-10-14] MEDS: LACTATED RINGERS 1,000 ML 42 ML IV (09:37)
[2023-10-14] MEDS: ACETAMINOPHEN 325 MG TABLET 975 MG PO (09:38)
[2023-10-14 09:42] VITALS: BP 147/72; PULSE 61; RESP 16; TEMP 36.2; O2SAT 98; BMI 22.3
--- NOTE | 2023-10-14 11:23 | PM.PREOP ---
Pre-operative Note Interval Note History & Physical reviewed/Exam performed by Physician: Yes Changes to H&P: No
[2023-10-14] MEDS: GENTAMICIN 400 MG in SODIUM CHLORIDE 0.9% 100 ML 110 MG IV (12:10)
--- NOTE | 2023-10-14 12:21 | SUR.OPER ---
Lithotomy on padded OR bed, head on pillow, arms secured on padded arm boards at <90 degrees abduction. Legs secured in padded yellow fins stirrups.
--- NOTE | 2023-10-14 12:43 | PM.OP.1 ---
Operative Date/Time/Diagnoses Date of procedure: 10/14/23 Time of procedure: 12:43 Pre-op diagnosis: 1. Foreign body-bladder neck. 2. Calculus-bladder neck. 3. Recurrent same species UTI. Post-op diagnosis: same Procedure & Clinicians Procedure: 1. Cystoscopy/removal bladder neck and bladder calculus. 2. Cystoscopy/removal bladder neck foreign body x2 (UroLift metallic clips). Same procedure as scheduled: Yes Indications: 1. Foreign body-bladder neck with adherent calculus. 2. Recurrent same species UTI. Surgeon: Macy Paige Click Yes if Unassisted: Yes Anesthesia Type: General Operative Notes Findings: 1. Urethra-normal caliber without annular stricture or lesion. 2. External sphincter coapted with normal overlying urothelium and vascularity. 3. Prostate-4.5+ cm length with obstructing trilobar hyperplasia. There were several benign inflammatory mucosal polyps seen mainly in the midportion of the prostatic urethra. At the junction of the prostate and bladder neck, anteriorly at the 10 to 11 position there was an irregular and visible gold and brown appearing calculus and a visible metallic clip partially imbedded within. 4. Bladder-2+ trabeculation with generalized and scattered cystitis cystica. Closure Type: not applicable Specimen(s): other (1. Calculus 2. Metallic bladder clip x2 ) Estimated Blood Loss (mL): 0 Blood products transfused: none Procedure in detail: The patient was positioned supine and administered general anesthesia. He was then repositioned in semi lithotomy in the lower abdomen, genitalia, and groin were then prepped and draped in sterile fashion. The 22 Cypriot panendoscope was then passed the lower urinary tract with the findings as described above. Using the alligator 2 foreign body grasper the index calculus was able to be grasped within the jaws. Now the panendoscope was advanced forward into the partially filled bladder. Much of the stone was contained within the jaws. Numerous other small fragments floated to the dependent portion of the bladder floor. The stone was submitted for Gram stain, culture and sensitivity and analysis. A visible metallic clip was then visualized and engaged with the foreign body graspers in the same manner and the scope advanced forward in the same manner. A clip with a proximally 1 cm of attached suture material was freed from the prostate/bladder neck. This was submitted for gross only examination. A 3rd reexamination revealed yet another metallic clip in the general vicinity of the above describes calculus and metallic clip. Again, in the same manner the clip was engaged within the jaws of the alligator tooth foreign body grasper, and again, the panendoscope was advanced forward into the partially filled bladder. Again, the metallic clip with a segment of attached suture was successfully freed from the prostate/bladder neck. This specimen 2 was submitted with the other metallic clip and submitted to pathology for gross only examination. Next, the PageFreezer evacuator was utilized to hydrostatically mobilize and evacuate the several tiny calculus fragments line on the dependent portion of the bladder floor. Reexamination failed to reveal any evidence of residual calculus fragments. Hemostasis was excellent. The bladder was then drained completely in the panendoscope was removed. The patient was then repositioned in supine, awakened, transferred to a gurney, and then transferred to recovery and stable condition. Complications: none Post-operative Condition: stable Disposition: PACU Plan for aftercare: Discharge home.
[2023-10-14 12:50] VITALS: BP 137/76; PULSE 61; RESP 13; TEMP 36.3; O2SAT 100
[2023-10-14 12:55] VITALS: BP 119/70; PULSE 63; RESP 16; O2SAT 99
[2023-10-14 12:59] VITALS: BP 109/83; PULSE 68; RESP 15; O2SAT 98
[2023-10-14 13:04] VITALS: BP 127/67; PULSE 66; RESP 12; O2SAT 96
[2023-10-14 13:10] VITALS: BP 129/70; PULSE 70; RESP 12; TEMP 36.7; O2SAT 97
== END 2023-10-14 13:34 | disposition home or self-care (01) ==
PROVIDERS: PCP Physician Assistant; Referring Provider Specialist; Visit Provider Specialist
PROC: (CPT 52310; principal; 2023-10-14 10:45)
DX: N21.0 Calculus in bladder (principal); N32.0 Bladder-neck obstruction; Z87.440 Personal history of urinary (tract) infections; T19.1XXA Foreign body in bladder, initial encounter; N30.80 Other cystitis without hematuria; N40.3 Nodular prostate with lower urinary tract symptoms; N13.8 Other obstructive and reflux uropathy
CPT/HCPCS: 52310; 87070; 87075; 87077; 87176; 87186; 87205; J1100; J1885; J2405

== ENCOUNTER → 2024-01-02 09:57 | Outpatient (CLI) | payer MEDICARE, BC, SELFPAY ==
[2023-10-17 11:37] VITALS: BMI 22.6
[2024-01-02 20:44] LABS: Alanine Aminotransferase 26 IU/L (<50); Albumin 4.2 g/dL (3.5-5.0); Albumin Globulin Ratio 1.4 (1.0-2.8); Alkaline Phosphatase 92 U/L (38-126); Aspartate Aminotransferase 31 IU/L (17-59); BUN Creatinine Ratio 21.3 (6-22); Bilirubin Total 0.9 mg/dL (0.2-1.3); Blood Urea Nitrogen 17 mg/dL (9-20); Calcium 9.3 mg/dL (8.4-10.2); Carbon Dioxide 31 mmol/L (22-32); Chloride 105 mmol/L (98-107); Cholesterol 127 mg/dL (140-199); Estimated Glomerular Filt Rate > 60 mL/min (>60); Globulin 2.9 g/dL (1.7-4.1); Glucose 104 mg/dL (80-110); HDL Cholesterol 54 mg/dL (40-60); HEMOLYSIS < 15 (0-50); LDL Cholesterol Calculated 60 mg/dL (<100); Potassium 4.7 mmol/L (3.4-5.1); Sodium 139 mmol/L (137-145); Total Protein 7.1 g/dL (6.3-8.2); Triglycerides 63 mg/dL (35-150)
[2024-01-02 20:49] LABS: Add Manual Diff / Slide Review NO; Basophils Absolute Auto 0 /uL (0-100); Basophils Percent Auto 0.6 % (0-2); Eosinophils Absolute Auto 100 /uL (0-450); Eosinophils Percent Auto 0.9 % (2-4); Hematocrit 43.9 % (41-53); Hemoglobin 15.4 g/dL (13.5-17.5); Lymphocytes Absolute Auto 1600 /uL (1100-4500); Lymphocytes Percent Auto 24.5 % (25-40); Mean Corpuscular HGB Conc 35.1 % (30-36); Mean Corpuscular Hemoglobin 31.1 PG (26-34); Mean Corpuscular Volume 88.6 fL (80-100); Monocytes Absolute Auto 500 /uL (0-900); Monocytes Percent Auto 7.9 % (3-14); Neutrophils Absolute Auto 4200 /uL (1500-7000); Neutrophils Percent Auto 66.1 % (50-75); Platelet Count 191 X10^3/uL (150-400); Red Blood Cell Count 4.96 X10^6/uL (4.5-5.9); Red Cell Distribution Width 13.5 % (11.6-14.8); White Blood Cell Count 6.4 X10^3/uL (4.5-11.0)
[2024-01-02 21:19] LABS: Prostate Specific Antigen Scrn 0.662 ng/mL (0.1-4.0)
[2024-01-02 21:20] LABS: TSH w/ Reflex to FT4 0.98 uIU/mL (0.47-4.68)
== END ==
PROVIDERS: PCP Family Medicine; Visit Provider Family Medicine
DX: Z13.6 Encounter for screening for cardiovascular disorders (principal); Z86.73 Personal history of transient ischemic attack (TIA), and cerebral infarction without residual deficits; R53.83 Other fatigue; Z12.5 Encounter for screening for malignant neoplasm of prostate; Z13.1 Encounter for screening for diabetes mellitus; D64.9 Anemia, unspecified
CPT/HCPCS: 80053; 80061; 84443; 85025; G0103

== ENCOUNTER → 2024-01-19 10:57 | Outpatient (CLI) | payer MEDICARE, BC, SELFPAY ==
[2023-10-17 11:37] VITALS: BMI 22.6
[2024-01-19 21:22] LABS: Folate 3.9 ng/mL (2.76-20.0); Vitamin B12 Reflex MMA if <400 349 pg/mL (239-931)
[2024-01-24 11:27] LABS: Methylmalonic Acid,Serum 193 nmol/L (0-378)
[2024-01-24 15:09] LABS: Albumin 3.5 g/dL (2.9-4.4); Alpha-1-Globulin 0.2 g/dL (0.0-0.4); Alpha-2-Globulin 0.6 g/dL (0.4-1.0); Globulin Total 2.7 g/dL (2.2-3.9); Protein, Total 6.2 g/dL (6.0-8.5)
[2024-01-24 20:35] LABS: Free Kappa Lt Chains, Serum 19.3 mg/L (3.3-19.4); Free Lambda Lt Chains,Serum 14.5 mg/L (5.7-26.3)
[2024-01-25 15:13] LABS: ANA Screen, IFA Negative (.)
== END ==
PROVIDERS: PCP Family Medicine; Visit Provider Family Medicine
DX: R20.0 Anesthesia of skin (principal); R20.2 Paresthesia of skin; G62.9 Polyneuropathy, unspecified
CPT/HCPCS: 82607; 82746; 83883; 83921; 84155; 84165; 86038

== ENCOUNTER → 2024-10-11 11:09 | Outpatient (CLI) | payer MEDICARE, BC, SELFPAY ==
[2024-10-01 10:04] VITALS: BMI 22.6
[2024-10-11 11:55] LABS: Add Manual Diff / Slide Review NO; Basophils Absolute Auto 0 /uL (0-100); Basophils Percent Auto 0.2 % (0-2); Eosinophils Absolute Auto 100 /uL (0-450); Eosinophils Percent Auto 1.4 % (2-4); Hemoglobin 15.5 g/dL (13.5-17.5); Lymphocytes Absolute Auto 1300 /uL (1100-4500); Lymphocytes Percent Auto 18.7 % (25-40); Mean Corpuscular HGB Conc 34.6 % (30-36); Mean Corpuscular Hemoglobin 31.4 PG (26-34); Monocytes Absolute Auto 500 /uL (0-900); Monocytes Percent Auto 6.5 % (3-14); Neutrophils Absolute Auto 5100 /uL (1500-7000); Neutrophils Percent Auto 73.2 % (50-75); Platelet Count 248 X10^3/uL (150-400); Red Blood Cell Count 4.94 X10^6/uL (4.5-5.9); Red Cell Distribution Width 12.9 % (11.6-14.8)
[2024-10-11 12:31] LABS: Alanine Aminotransferase 32 IU/L (<50); Albumin 4.5 g/dL (3.5-5.0); Albumin Globulin Ratio 1.7 (1.0-2.8); Alkaline Phosphatase 87 U/L (38-126); Aspartate Aminotransferase 34 IU/L (17-59); Bilirubin Total 0.5 mg/dL (0.2-1.3); Blood Urea Nitrogen 16 mg/dL (9-20); Calcium 9.2 mg/dL (8.4-10.2); Carbon Dioxide 29 mmol/L (22-32); Chloride 103 mmol/L (98-107); Estimated Glomerular Filt Rate > 60 mL/min (>60); Globulin 2.7 g/dL (1.7-4.1); Glucose 98 mg/dL (80-110); HEMOLYSIS < 15 (0-50); Potassium 4.6 mmol/L (3.4-5.1); Sodium 138 mmol/L (137-145); Total Protein 7.2 g/dL (6.3-8.2)
[2024-10-11 12:42] LABS: LDL Cholesterol Direct 56 mg/dL (<100)
== END ==
PROVIDERS: PCP Family Medicine; Referring Provider Urology; Visit Provider Urology
DX: R41.89 Other symptoms and signs involving cognitive functions and awareness (principal); I65.09 Occlusion and stenosis of unspecified vertebral artery; Z12.5 Encounter for screening for malignant neoplasm of prostate; N40.1 Benign prostatic hyperplasia with lower urinary tract symptoms; N13.8 Other obstructive and reflux uropathy; R39.198 Other difficulties with micturition; R39.13 Splitting of urinary stream; Z79.899 Other long term (current) drug therapy; Z86.73 Personal history of transient ischemic attack (TIA), and cerebral infarction without residual deficits; Z87.891 Personal history of nicotine dependence; Z87.898 Personal history of other specified conditions; Z98.890 Other specified postprocedural states; Z87.448 Personal history of other diseases of urinary system
CPT/HCPCS: 36415; 51798; 80053; 81002; 83721; 85025; 99214; G0103

== ENCOUNTER → 2025-08-22 10:58 | Outpatient (CLI) | payer MEDICARE, BC, SELFPAY ==
[2025-01-18 10:46] VITALS: BMI 22.6
== END ==
PROVIDERS: PCP Family Medicine; Visit Provider Urology
DX: N39.0 Urinary tract infection, site not specified (principal); R31.9 Hematuria, unspecified; N40.1 Benign prostatic hyperplasia with lower urinary tract symptoms; N13.8 Other obstructive and reflux uropathy; Z12.5 Encounter for screening for malignant neoplasm of prostate; Z68.23 Body mass index [BMI] 23.0-23.9, adult
CPT/HCPCS: 51798; 81002; 87086; 99213

== ENCOUNTER 2025-09-04 10:31 | Emergency (ER) | payer MEDICARE, BC, SELFPAY ==
[2025-01-18 10:46] VITALS: BMI 22.6
[2025-09-04 10:34] VITALS: BP 157/75; PULSE 79; RESP 13; TEMP 36.4; O2SAT 98; BMI 23.7
--- NOTE | 2025-09-04 10:38 | DI.US.S_ITS ---
PROCEDURE: US PERIPH VENOUS LOW EXTREM LT INDICATIONS: left lower leg pain TECHNIQUE: Real-time imaging, as well as color and pulse Doppler interrogation, were performed of the lower extremity deep veins from the inguinal ligament to the popliteal fossa, with documentation of the visualized calf veins. COMPARISON: None. FINDINGS: The common femoral, femoral, popliteal, and the visualized calf veins are normally compressible, and free of intraluminal thrombus. Color and pulse Doppler demonstrate normal phasic intraluminal flow. There is normal augmentation response to distal compression maneuver. IMPRESSION: No evidence of deep vein thrombosis involving the left lower extremity. Dictated by: Delia Trevino MD, PhD on 09/04/2025 at 11:45 Approved by: Delia Trevino MD, PhD on 09/04/2025 at 11:46
--- NOTE | 2025-09-04 12:10 | ED.EXTPRO ---
HPI - Extremity Problem <Inez Chance PA-C - Last Filed: 09/04/25 17:24> General Chief complaint: Extremity Problem,Nontraumatic Stated complaint: Pain above left ankle 3 days Time Seen by Provider: 09/04/25 10:34 Source: patient Mode of arrival: Ambulatory History of Present Illness HPI Narrative: 80-year-old male with past medical history peripheral neuropathy presents to the ED with 3 days of left lower graf pain. Patient states that the pain is localized to 1 point. Patient was seen by his family practice provider earlier today, an x-ray was performed which was without acute findings. Patient was sent to the ED for further evaluation and to rule out a DVT. Patient denies chest pain, shortness of breath, numbness, tingling, weakness. Patient denies any trauma. Related Data Home Medications ?Medication ?Instructions ?Recorded ?Confirmed carboxymethylcellulose 0.5 2 drp ophthalmic (eye) BID 03/02/23 08/22/25 %-glycerin 0.9 % eye drops (Refresh Optive) ipratropium bromide 21 mcg (0.03 1 spray intranasal BID 03/02/23 08/22/25 %) nasal spray vitamins A,C,H-lmjo-jhhlsj 4,296 1 cap PO BID 05/30/25 08/22/25 mcg-226 mg-90 mg capsule (PreserVision AREDS) Previous Rx's ?Medication ?Instructions ?Recorded aspirin 81 mg tablet,delayed 81 mg PO BID #84 tabs 03/03/23 release rosuvastatin 20 mg tablet 20 mg PO DAILY #90 tabs 04/23/25 Allergies Allergy/AdvReac Type Severity Reaction Status Date / Time morphine AdvReac Mild Gastrointestinal Verified 09/04/25 10:34 Upset oxycodone AdvReac Mild Irritable Verified 09/04/25 10:34 [id number] Reductase AdvReac Mild Muscle Pain Verified 09/04/25 10:34 Inhibitor Review of Systems <Inez Chance PA-C - Last Filed: 09/04/25 17:24> Constitutional Constitutional: Denies chills, Denies fatigue, Denies fever(s), Denies frequent falls, Denies lethargy and Denies weakness Eyes Eyes: Denies change in vision, Denies eye discharge, Denies irritation and Denies loss of vision ENT Ears, Nose, Mouth, and Throat: Denies change in voice, Denies dizziness, Denies neck pain, Denies sore throat and Denies throat swelling Cardiovascular Cardiovascular: Denies chest pain, Denies irregular heart rhythm, Denies lightheadedness, Denies palpitations, Denies dyspnea, Denies dyspnea on exertion and Denies orthopnea Respiratory Respiratory: Denies cough, Denies dyspnea, Denies dyspnea on exertion and Denies wheezing Gastrointestinal Gastrointestinal: Denies abdominal pain, Denies change in bowel habits, Denies diarrhea, Denies nausea and Denies vomiting Musculoskeletal Musculoskeletal: Denies neck pain and Denies numbness Comments: Left-sided lower leg pain Integumentary/Breasts Skin/Breast: Denies pruritus, Denies erythema, Denies rash and Denies wounds Neurologic Neurologic: Denies behavioral changes, Denies confusion, Denies dizziness, Denies frequent falls, Denies loss of vision, Denies numbness and Denies weakness Psychiatric Psychiatric: Denies anxiety, Denies behavioral changes, Denies confusion, Denies depression, Denies homicidal ideation and Denies suicidal ideation Endocrine Endocrine: Denies fatigue, Denies flushing and Denies palpitations Hematologic/Lymphatic Hematologic/Lymphatic: Denies easy bruising Allergic/Immunologic Allergic/Immunologic: Denies urticaria, Denies throat swelling and Denies wheezing Patient History <Inez Chance PA-C - Last Filed: 09/04/25 17:24> Medical History History of tobacco use Splitting of urinary stream Slow urinary stream History of bladder stone History of recurrent UTI (urinary tract infection) History of UTI UTI (urinary tract infection) Foreign body in bladder, subsequent encounter Bladder calculus History of urinary retention BPH w urinary obs/LUTS Arthritis Low hemoglobin History of COVID-19 (2021) Skin cancer CVA (cerebral vascular accident) (10/31/21) Precancerous skin lesion Right hip pain Surgical History S/P TKR (total knee replacement) Hx of hernia repair History of surgery (10/2021) History of tonsillectomy Status post appendectomy Family History Family/Other FH: CVA (cerebrovascular accident) Hearing impairment Social History household members: none Smoking Status: Unknown if ever smoked alcohol intake: former additional social history: [employer] [facility] no tob 39 yrs AA -Pt is an AA sponsor will be starting a grief recovery group 12/2023 Smoking Status: Unknown if ever smoked alcohol intake frequency: other Exam <Inez Chance PA-C - Last Filed: 09/04/25 17:24> Narrative Exam Narrative: Const General:?cooperative, healthy appearing and comfortable [facility] Head:?normal to inspection Ears:?hearing grossly normal bilaterally Nose:?external nose normal Face and sinus:?normal facial exam and sinuses nontender Mouth:?oral mucosae normal Throat:?posterior oropharynx normal Eyes General:?appearance normal, both eyes and all related structures Neck Neck:?normal visual inspection and no lymphadenopathy noted Resp Effort & Inspection:?normal respiratory effort Auscultation:?clear to auscultation bilaterally Cardio Rate:?regular rate Rhythm:?regular rhythm Musculoskeletal No Tenderness to palpation, bruising, deformities of the left graf. Gait is normal. Strength and sensation is intact. Neurovascularly intact. Neuro General:?patient alert, patient awake and patient oriented x3 Initial Vital Signs Initial Vital Signs: Vital Signs Temperature 97.5 F L 09/04/25 10:34 Pulse Rate 79 09/04/25 10:34 Respiratory Rate 13 09/04/25 10:34 Blood Pressure 157/75 H 09/04/25 10:34 Pulse Oximetry 98 09/04/25 10:34 Oxygen Delivery Method Room Air 09/04/25 10:34 <Kory Morrell MD - Last Filed: 09/05/25 09:49> Initial Vital Signs Initial Vital Signs: Vital Signs Temperature 97.5 F L 09/04/25 10:34 Pulse Rate 79 09/04/25 10:34 Respiratory Rate 13 09/04/25 10:34 Blood Pressure 157/75 H 09/04/25 10:34 Pulse Oximetry 98 09/04/25 10:34 Oxygen Delivery Method Room Air 09/04/25 10:34 Course <Inez Chance PA-C - Last Filed: 09/04/25 17:24> Orders Ordered: ED Orders 09/04/25 10:38 US periph venous low extrem lt Stat Vital Signs Vital signs: Vital Signs - 8 hr 09/04/25 10:34 09/04/25 12:14 Temperature 97.5 F L Pulse Rate 79 82 Respiratory Rate 13 17 Blood Pressure 157/75 H 135/78 Pulse Oximetry 98 96 Oxygen Delivery Method Room Air Room Air <Kory Morrell MD - Last Filed: 09/05/25 09:49> Orders Ordered: ED Orders 09/04/25 10:38 periph venous low extrem lt Stat Vital Signs Vital signs: Vital Signs - 8 hr 09/04/25 10:34 09/04/25 12:14 Temperature 97.5 F L Pulse Rate 79 82 Respiratory Rate 13 17 Blood Pressure 157/75 H 135/78 Pulse Oximetry 98 96 Oxygen Delivery Method Room Air Room Air MDM - Extremity (Nontraumatic) <Inez Chance PA-C - Last Filed: 09/04/25 17:24> MDM Narrative Medical decision making narrative: 80-year-old male with past medical history peripheral neuropathy presents to the ED with 3 days of left lower graf pain. Ultrasound with no evidence of deep vein thrombosis involving the left lower extremity. Patient's Dr. has orders in for an RICA due to suspicion for peripheral artery disease. Discussed findings with patient, recommend follow-up with his PCP for further evaluation and the RICA. ED return precautions discussed with patient. Patient verbalized understanding. Medical records reviewed: Yes Discharge Plan Departure Patient Disposition: Home Clinical Impression: Acute leg pain Qualifiers: Laterality: left Qualified Code(s): M79.605 - Pain in left leg Instructions: DI for Leg Pain Activity Restrictions/Additional Instructions: You were evaluated in the emergency room today for left-sided lower leg pain. It appears that the x-ray done at the clinic was also normal. Patient's doctor has ordered an RICA due to concern for PID. Patient was sent to the ED to rule out a DVT. The ultrasound was normal and did not show any blood clots. Recommend patient follow-up with his doctor for further evaluation. ED return precautions were discussed with patient. Patient verbalized understanding. Medical records reviewed: Yes Prescriptions: No Action rosuvastatin 20 mg tablet 20 mg PO DAILY Qty: 90 1RF Rx Instructions: STOP atorvastatin ipratropium bromide 21 mcg (0.03 %) spray,non-aerosol 1 spray INTRANASAL BID Refresh Optive 0.5-0.9 % Drops 2 drp OPHTHALMIC (EYE) BID aspirin 81 mg Tablet,Delayed Release (Dr/Ec) 81 mg PO BID Qty: 84 0RF PreserVision AREDS 4,296 mcg-226 mg-90 mg capsule 1 cap PO BID Referrals: Carmencita Davis MD [Primary Care Provider, Family Practice] Stand Alone Forms: Patient Portal/API ED Sign-out <Kory Morrell MD - Last Filed: 09/05/25 09:49> Cosign ED Attending Cosignature Attestation: I was immediately available in the department for consultation. ?This documentation has been reviewed and I agree with assessment and plan. Supervised by Kory Morrell MD
[2025-09-04 12:14] VITALS: BP 135/78; PULSE 82; RESP 17; O2SAT 96
== END 2025-09-04 12:14 | disposition home or self-care (01) ==
PROVIDERS: Emergency Provider Student in an Organized Health Care Education/Training Program; PCP Family Medicine
DX: M79.662 Pain in left lower leg (principal)
CPT/HCPCS: 93971; 99281; 99283